=== PATIENT | male | born 1935 | race Caucasian/White ===

== ENCOUNTER 2017-06-09 08:41 | Outpatient (POV) | payer MEDICARE, SELFPAY | END 2017-06-09 09:29 | disposition home or self-care (01) | PROVIDERS: Visit Provider Podiatrist | DX: L84 Corns and callosities (principal); I83.93 Asymptomatic varicose veins of bilateral lower extremities; L60.2 Onychogryphosis; M25.572 Pain in left ankle and joints of left foot; M25.571 Pain in right ankle and joints of right foot | CPT/HCPCS: 99203; G0127 ==

== ENCOUNTER → 2018-03-29 10:23 | Outpatient (CLI) | payer MEDICARE, SELFPAY ==
[2018-03-29 11:47] LABS: Alanine Aminotransferase 28 U/L (12-78); Albumin Level 3.8 gm/dL (3.4-5.0); Albumin/Globulin Ratio 1.1 (1.1-1.8); Alkaline Phosphatase 91 U/L (46-116); Anion Gap 13.9 mEq/L (5-15); Aspartate Amino Transferase 21 U/L (15-37); Bilirubin,Total 0.6 mg/dL (0.2-1.0); Blood Urea Nitrogen 21 mg/dL (7-18); Calcium 8.9 mg/dL (8.5-10.1); Carbon Dioxide 26 mmol/L (21.0-32.0); Chloride 107 mmol/L (98-107); Chol/HDL Ratio 2.6 (1-3.5); Cholesterol 132 mg/dL (140-200); Creatinine,Serum 1.41 mg/dL (0.70-1.30); Estimated Glomerular Filt Rate 48 ml/min (>60); GFR (African American) 58 ML/MIN (>60); Globulin 3.4 gm/dl (1.3-3.2); Glucose 97 mg/dL (74-106); HDL Cholesterol 50 mg/dL (27-67); LDL Cholesterol 42 mg/dL (0-130); Potassium 4.9 mmoL/L (3.5-5.1); Sodium 142 mmol/L (136-145); Thyroid Stimulating Hormone 1.73 uIU/ml (0.358-3.740); Total Protein,Serum 7.2 gm/dL (6.4-8.2); Triglycerides 199 mg/dL (30-200); VLDL Cholesterol 40 mg/dL (0-40)
== END ==
PROVIDERS: PCP Family Medicine; Visit Provider Physician Assistant
DX: I25.10 Atherosclerotic heart disease of native coronary artery without angina pectoris (principal); I10 Essential (primary) hypertension; E78.5 Hyperlipidemia, unspecified
CPT/HCPCS: 36415; 80053; 80061; 84443

== ENCOUNTER → 2018-06-26 12:05 | Outpatient (CLI) | payer MEDICARE, SELFPAY ==
--- NOTE | 2018-06-26 12:26 | XR_ITS ---
XR chest 2V HISTORY: Bibasilar crackles. Posterior lungs. Short of breath. Nonsmoker. 4 vessel bypass 2000 ITS.REASON: Bibasilar crackles ORDERING PHYSICIAN: SVETA Stanton PATIENT AGE: 82 years Technique: PA and lateral CXR. COMPARISON: 2 view CXR 01/14/2017 & 01/04/2011. FINDINGS: Frontal chest appears stable chest slightly rotated the left median sternotomy, likely for CABG. Heart is normal size. The slightly ill-defined left heart margin is similar to previous studies. Reflect anterior fat pad. There is subtle increased density at the medial left base on today's study which was not seen in 2017. It could reflect a small hiatal hernia but this in conjunction with some subtle density at the lower lobe on the lateral view of his suspect for minimalLLL infiltrate at the medial left base.. This may partially obscure the posterior sulcus on left as well. Clinical correlation required. . Right lung appears stable clear unremarkable. The chest wall appears satisfactory.. Minor chronic changes both lung bases. T-spine mild degenerative changes again seen throughout intramarginal osteophytes. No compression fracture. No CHF. IMPRESSION Suggestion patchy infiltrate/airspace disease at the medial left lung base at posterior aspect LLL.. Otherwise lungs clear. Heart upper normal in size. Sternotomy..
== END ==
PROVIDERS: PCP Physician Assistant; Referring Provider Physician Assistant; Visit Provider Physician Assistant
DX: R09.89 Other specified symptoms and signs involving the circulatory and respiratory systems (principal)
CPT/HCPCS: 71046

== ENCOUNTER → 2018-07-06 10:51 | Outpatient (CLI) | payer MEDICARE, SELFPAY ==
[2018-07-06 13:54] LABS: Alanine Aminotransferase 25 U/L (12-78); Albumin Level 3.5 gm/dL (3.4-5.0); Albumin/Globulin Ratio 0.9 (1.1-1.8); Alkaline Phosphatase 82 U/L (46-116); Aspartate Amino Transferase 17 U/L (15-37); Bilirubin,Total 0.3 mg/dL (0.2-1.0); Blood Urea Nitrogen 36 mg/dL (7-18); Calcium 8.7 mg/dL (8.5-10.1); Carbon Dioxide 26 mmol/L (21.0-32.0); Chloride 104 mmol/L (98-107); Cholesterol 114 mg/dL (140-200); Creatinine,Serum 1.67 mg/dL (0.70-1.30); Estimated Glomerular Filt Rate 39 ml/min (>60); GFR (African American) 48 ML/MIN (>60); Globulin 3.7 gm/dl (1.3-3.2); Glucose 104 mg/dL (74-106); HDL Cholesterol 38 mg/dL (27-67); LDL Cholesterol 56 mg/dL (0-130); Sodium 139 mmol/L (136-145); Total Protein,Serum 7.2 gm/dL (6.4-8.2); Triglycerides 99 mg/dL (30-200); VLDL Cholesterol 20 mg/dL (0-40)
== END ==
PROVIDERS: Visit Provider Family Medicine
DX: I25.10 Atherosclerotic heart disease of native coronary artery without angina pectoris (principal); I10 Essential (primary) hypertension
CPT/HCPCS: 36415; 80053; 80061

== ENCOUNTER → 2018-08-17 06:48 | Outpatient (CLI) | payer MEDICARE, SELFPAY ==
--- NOTE | 2018-08-17 06:53 | CA_ITS ---
PROCEDURE: 2-D M-mode and color Doppler study INDICATIONS FOR THE TEST: Chest pain+ COPD+ Heart Murmur Tobacco Smoking Palpitations Fatigue+ Syncope Edema Hypertension+Diabetes Mellitus Rheumatic Fever SOB FISH+Obesity+Hyperlipidemia+ Family History HD Additional History CABG, ABN EKG PATIENT INFORMATION HEIGHT:69 WEIGHT:286 GENDER: Male B/P:142/64 2-D/M-MODE INTERPRETATION: 2-D MEASUREMENTS OBSERVED VALUES IN CMS Right Ventricular Dimension (RVDd) 3.1 Interventricular Septum (Thickness)(IVsd) 1.7 Left Ventricular Internal Dimensions(LVIDd) 4.2 Left Ventricular Posterior Wall (Thickness)(LVPWd) 1.6 Aortic Root 3.6 Aortic Cusp Separation 2.0 Left Atrial Dimensions (LAD) 4.3 2D 1. Left atrium is mildly enlarged, left ventricle is normal size, mild concentric left ventricular hypertrophy, visually estimated ejection fraction 50% with no regional wall motion abnormality, endocardial surfaces are poorly visualized. 2. The right atrium and ventricle are mildly enlarged with normal contractility. 3. The aortic valve is thickened and calcified leaflet continue to display mobility 4. The mitral and tricuspid valve leaflets are minimally thickened. 5. The pulmonic valve is poorly present. 6. No significant pericardial effusion noted. DOPPLER INTERROGATION: Doppler interrogation of the aortic, mitral and tricuspid valvular presence of mild mitral and tricuspid regurgitation, tricuspid regurgitation jet velocity is inadequate for calculation of the right ventricular systolic pressure, grade 1 diastolic dysfunction seen with tissue Doppler evidence of raised left atrial pressure. CONCLUSION: 1. Biatrial enlargement, normal left ventricular size, mild concentric left ventricular hypertrophy, visually estimated to postvoid with no regional wall motion abnormality, masses dysfunction seen with tissue Doppler evidence of raised left atrial pressure. 2. Mildly enlarged left ventricle with normal contractility. 3. Mild mitral and tricuspid regurgitation 4. No significant Pericardial effusion noted.
--- NOTE | 2018-08-17 06:54 | NM_ITS ---
CARDIOLITE SPECT MYOCARDIAL PERFUSION SCAN, REST AND STRESS: EXERCISE STRESS [facility] REVIEW QGS EF AND WALL MOTION EVALUATION: QPS - PERFUSION EVALUATION HISTORY: SOB, Abnormal EKG, CABG, HTN DOSE: 9.88 mCi technetium 99m mibi intravenously at rest followed by 32.2 mCi technetium 99m mibi following the intravenous ministration of 0.4 mg of Lexiscan. Resting blood pressure is 142/72. Stress blood pressure 117/64. FINDINGS: Ejection fraction is calculated to be 47%. Stress images reveal decreased activity in the septum and apex and a small area of the lateral wall. Rest images reveal improved activity in the apex lateral wall and septum. Gated images calculated ejection fraction of 47% with apical hypokinesis IMPRESSION: Apical septal and lateral wall ischemia. Reduced ejection fraction with apical hypokinesis. High risk abnormal stress test
--- NOTE | 2018-08-17 07:19 | HMH.ITSHM ---
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 []METOPROLOL VITAMIN B ROSUASTATIN RAMIPRIL ASA MULTIVITAMIN GLUCOSAMINE COENZYME
== END ==
PROVIDERS: PCP Family Medicine; Visit Provider Internal Medicine
DX: R06.09 Other forms of dyspnea; I20.9 Angina pectoris, unspecified; E78.5 Hyperlipidemia, unspecified; I10 Essential (primary) hypertension; R26.89 Other abnormalities of gait and mobility; Z95.1 Presence of aortocoronary bypass graft
CPT/HCPCS: 78452; 93017; 93306; A9502; J2785

== ENCOUNTER → 2018-09-06 13:42 | Outpatient (CLI) | payer MEDICARE, SELFPAY ==
--- NOTE | 2018-09-06 13:42 | US_ITS ---
US kidney retroperitoneal comp Ordering Physician: Tristan James MD Patient Age: 82 years: Male HISTORY: ITS.REASON: eval for hydronephrosis. TECHNIQUE: Ultrasound both kidneys MW COMPARISON : None FINDINGS The kidneys appear normal in size, but with suggestion minimal cortical thinning particularly towards the superior pole of Right kidney. RIGHT KIDNEY: Measures 10.2 cm x 4.4 cm x 4.7 cm . The moderate roughly 3 cm fluid filled structure along the medial, inferior aspect of the right kidney reflecting either dilated renal pelvis vs a parapelvic cyst. Added to further reviewed the images and discussion with technologist there was question regarding possible mild hydronephrosis involving the lower pole moiety of the duplicated collecting system. Only subtle fullness of the pelvicalyceal system question. With this suggests either an IVP follow-up; or CT with contrast. protocol including 10 minute delayed images. LEFT KIDNEY 11 cm x 5.2 cm x 7.2 cm. Small benign-appearing renal cyst off the superior left kidney measures up to 1.1 cm. The limited images of spleen unremarkable.. Gallstones incidentally noted. IMPRESSION: 1.. Kidneys appear normal in size bilaterally but with suggestion of mild cortical thinning particularly at the upper pole right kidney 2. Right kidney. Prominent dilated renal pelvis vs roughly 3 cm parapelvic cyst. On further review & discussion with ultrasd tech, would question that there could be mild hydronephrosis involving lower pole moiety of a duplicated collecting system. Suggest IVP follow-up,. ( Actually IVP actually preferred in this case) ...; or CT abdomen pelvis protocol (with at least 10 minute delayed images) further evaluate 3. Multiple shadowing Gallstones incidentally noted
== END ==
PROVIDERS: PCP Family Medicine; Visit Provider Internal Medicine
DX: R94.30 Abnormal result of cardiovascular function study, unspecified; N18.9 Chronic kidney disease, unspecified; E78.2 Mixed hyperlipidemia; I25.118 Atherosclerotic heart disease of native coronary artery with other forms of angina pectoris; R06.09 Other forms of dyspnea; R26.89 Other abnormalities of gait and mobility; Z95.1 Presence of aortocoronary bypass graft
CPT/HCPCS: 76770

== ENCOUNTER → 2018-09-22 11:41 | Outpatient (CLI) | payer MEDICARE, SELFPAY ==
[2018-09-22 13:55] LABS: Blood Urea Nitrogen 30 mg/dL (7-18); Creatinine,Serum 1.47 mg/dL (0.70-1.30); Estimated Glomerular Filt Rate 46 ml/min (>60); GFR (African American) 55 ML/MIN (>60)
== END ==
PROVIDERS: Visit Provider Family Medicine
DX: N13.9 Obstructive and reflux uropathy, unspecified (principal)
CPT/HCPCS: 36415; 82565; 84520

== ENCOUNTER → 2018-09-23 09:11 | Outpatient (CLI) | payer MEDICARE, SELFPAY ==
--- NOTE | 2018-09-23 09:11 | XR_ITS ---
XR IVP w KUB Ordering Physician: Yuly Burciaga MD Patient Age: 82 years: Male HISTORY: ITS.REASON: x TECHNIQUE: Seems to be normal caliber COMPARISON : Ultrasound of kidneys 09/06/[address] nor plain films of abdomen FINDINGS CANDY POLISHER FILM.-- There is a vague large perfectly round density measuring up to 5.7 cm diameter was projected over the right upper quadrant, with denser focal central calcification. This could reflects extrinsic artifact or conceivably could reflect a large gallstone conceivably. Gallstones were noted fillinggallbladder on recent ultrasound. . On the chief cruiser film was projected right kidney but on oblique views it is clearly not related to the kidney . Question some faint calcifications possibly at the left kidney on the chief cruiser view. Possible small calculi cannot be excluded at left kidney. Numerous dense phleboliths pelvic basin. Postsurgical changes right abdomen. IVP------ Following 75 cc Optiray 350 there is a prominent faint bilateral nephrogram. Left kidney and collecting system with satisfactory appearance.. Normal pelvicalyceal system on early images & Left ureter can be followed to the urinary bladder. Left kidney measures up to 12 cm length.. Question possible small calyceal diverticulum mid left kidney on later images of left kidney.. Equivocal Right kidney. Similar size. However we only see contrast filling the calyces with lack of contrast in the region of the renal pelvis. The renal pelvis axial comparison be somewhat compressed it is only faintly seen in question early evident. However there is no dilatation of the calyces in the right ureter..no obstruction. Both ureters drain appropriately on upright post void.. Urinary bladder demonstrates prominent inferior indentation from likely enlarged prostate IMPRESSION: 1. Recent ultrasound demonstrated a generous cystic area at the medial aspect left kidney. Most likely this is a parapelvic cyst which compresses and obscures the right renal pelvis on today's IVP study. . 2. No obstructive uropathy. No duplication of collecting system 3. Suspect large prostate indents the base the bladder. 4. Large over 5 cm round vague density at the right upper quadrant likely very large gallstone filling the gallbladder as suggested on recent ultrasound
== END ==
PROVIDERS: PCP Family Medicine; Visit Provider Family Medicine
DX: N13.1 Hydronephrosis with ureteral stricture, not elsewhere classified (principal)
CPT/HCPCS: 74400; Q9967

== ENCOUNTER → 2018-10-18 10:10 | Outpatient (CLI) | payer MEDICARE, SELFPAY ==
--- NOTE | 2018-10-18 10:16 | NVE_ITS ---
Venous Exam Indications: 729.81 Swelling of limb. 729.5 Pain in limb. IMPRESSIONS 1. There is no evidence of significant Reflux. 2. No evidence of deep or superficial vein thrombosis involving the right lower extremity History: Risk factors: Obese. Cellulitis. Right lower extremity venous duplex evaluation. Doppler flow study including spectral analysis, color and liang scale imaging. Location: Vascular laboratory. Patient status: Outpatient. CRITICAL FINDINGS - Reported to: Jaki Dockery's office - 10/18/2018 - 10:35 am - Neg. for DVT Tables: Venous flow and imaging: + +-------+ + Location Overall Flow properties + +-------+ + Right common femoral Patent Normal phasicity; spontaneous; normal augmentation; compressible + +-------+ + Right saphenofemoral junction Patent Compressible + +-------+ + Right profunda femoral Patent Compressible + +-------+ + Right femoral Patent Normal phasicity; spontaneous; normal augmentation; compressible + +-------+ + Right greater saphenous Absent + +-------+ + Right popliteal Patent Normal phasicity; spontaneous; normal augmentation; compressible + +-------+ + Right posterior tibial Patent Compressible + +-------+ + Right peroneal Patent Compressible + +-------+ + Right gastrocnemius Patent Compressible + +-------+ + Right soleal Patent Compressible + +-------+ + (Report amended ) Electronically signed by: Ken Matos [id number]
== END ==
PROVIDERS: PCP Family Medicine; Visit Provider Nurse Practitioner Family
DX: M79.604 Pain in right leg (principal)
CPT/HCPCS: 93971

== ENCOUNTER 2018-10-20 14:04 | Inpatient (IN) ==
--- NOTE | 2018-10-20 15:17 | Pharmacy Consult Notes ---
[facility] Pharmacy VTE Monitoring - Patient Demographics Admission date: 10/20/18 Report Date: 10/20/18 Time: 15:17 Allergies/Adverse Reactions: Patient Allergies No Known Allergies Allergy (Verified 09/02/18 15:48) Height: 1.75 m Weight: 96.644 kg - VTE Risk VTE Score: 3 VTE Risk Level: Low Risk - Prophylaxis Types of VTE Prophylaxis: TEDS Knee High (JUSTINE HOSE ORDER PLACED)
--- NOTE | 2018-10-20 16:14 | Pharmacy Consult Notes ---
- Pharmacy Consult Date: 10/20/18 Time: 16:13 Referring provider: DR. WALKER Reason for Consult:: VANCOMYCIN DOSING Allergies and ADEs:: Allergies Allergy/AdvReac Type Severity Reaction Status Date / Time No Known Allergies Allergy Verified 09/02/18 15:48 Home Medications:: Home Medications Medication Instructions Recorded Confirmed Type coenzyme Q10 100 mg capsule 100 mg PO DAILY 08/10/18 10/20/18 History glucosamine-chondroitin 250 mg-200 2 tab PO QPC 08/10/18 10/20/18 History mg tablet vitamin B complex tablet 1 tab PO DAILY 08/10/18 10/20/18 History metoprolol tartrate 50 mg tablet 25 mg PO BID 90 Days #90 tab 08/24/18 10/20/18 History Aspirin [Aspirin 81mg chewable 81 mg PO DAILY 10/20/18 10/20/18 History tab] Multivitamin [Daily Multiple 1 each PO DAILY 10/20/18 10/20/18 History Vitamin] Nitroglycerin [Nitrostat 0.4mg SL 0.4 mg SL Q5MINP PRN 10/20/18 10/20/18 History Tablet] Ramipril 5 mg PO DAILY 10/20/18 10/20/18 History Rosuvastatin Calcium 10 mg PO HS 10/20/18 10/20/18 History Height: 1.75 m Weight: 96.644 kg Medical History: Reports:: Chronic Obstructive Pulmonary Disease (COPD), Coronary Artery Disease, Hyperlipidemia, Hypertension, Myocardial Infarction Denies:: Asthma, Diabetes Mellitus Type 1, Diabetes Mellitus Type 2 Assessment and Plan - Assessment and plan all Dx Assessment and Plan for all problems:: BASED ON PATIENT'S FACTORS, RECOMMEND STARTING WITH VANCOMYCIN 1500 MG Q24H AT THIS TIME. PHARMACY WILL FOLLOW DAILY AND ADJUST APPROPRIATE. ESTUARDO LOU,PHARMD
[2018-10-20 16:21] LABS: Albumin Level 3.4 gm/dL (3.4-5.0); Albumin/Globulin Ratio 0.6 (1.1-1.8); Anion Gap 14.2 mEq/L (5-15); Bilirubin,Total 0.5 mg/dL (0.2-1.0); Calcium 9.3 mg/dL (8.5-10.1); Globulin 5.4 gm/dl (1.3-3.2); Potassium 5.2 mmoL/L (3.5-5.1); Total Protein,Serum 8.8 gm/dL (6.4-8.2)
--- NOTE | 2018-10-20 16:32 | Progress Note ---
Internal Medicine - PN: Subj *Date: 10/20/18 *Time: 16:29 Interval history: Patient was seen in the office of [facility] today for follow-up on cellulitis of his right lower leg. He has been seen daily since 10/18 2018 and been on Keflex and Bactrim. He has been doing warm soaks as well. 10/19/2018 he had drainage of the wound in the back of the right lower extremity and culture was obtained. These results are pending. Today in the office the wound is open with some drainage. He had an increase in erythema anteriorly going up almost to the knee and posteriorly on the back of the calf and down to the dorsal aspect of the foot. The area was a bright red and very tender to palpation. The edema around the ankle had increased since the previous day. Dr. Burciaga did see the patient. He was then admitted to acute care for wound care with CIRILO boot and IV vancomycin along with IV fluids. To note patient has not been eating and drinking well for the last few days. Patient did have a venous Doppler study on 10/18/2018 which was negative for DVT. see H&P from EMR at [facility] sent over with pt Exam Vital signs and Labs for Last 24 Hours: Temp Pulse Resp BP Pulse Ox 98.0 F 69 20 128/63 96 10/20/18 14:30 10/20/18 14:30 10/20/18 14:30 10/20/18 14:30 10/20/18 14:30 Laboratory Results - last 24 hr 10/20/18 15:54: Sodium 135 L, Potassium 5.2 H, Chloride 98, Carbon Dioxide 28, Anion Gap 14.2, BUN 23 H, Creatinine 1.94 H, Estimated Creat Clear 39, Estimated GFR 33 L, Est GFR ( Amer) 40 L, Glucose 107 H, Calcium 9.3, Total Bilirubin 0.5, AST 12 L, ALT 17, Alkaline Phosphatase 72, Total Protein 8.8 H, Albumin 3.4, Globulin 5.4 H, Albumin/Globulin Ratio 0.6 L I & O for Last 24 hours: Intake & Output 10/18/18 10/19/18 10/20/18 10/21/18 11:59 11:59 11:59 11:59 Weight 213 lb 1 oz Assessment and Plan (1) Cellulitis and abscess of right lower extremity Current visit: Yes Status: Acute Category: Medical Code(s): L03.115 - Cellulitis of right lower limb; L02.415 - Cutaneous abscess of right lower limb (2) Hypertension Current visit: Yes Status: Chronic Category: Medical Code(s): I10 - Essential (primary) hypertension (3) CAD (coronary artery disease) Current visit: No Status: Chronic Qualifiers: Coronary Disease-Associated Artery/Lesion type: [place] artery [place] vs. transplanted heart: [place] heart Associated angina: with other forms of angina Qualified Code(s): I25.118 - Atherosclerotic heart disease of [place] coronary artery with other forms of angina pectoris Category: Medical Code(s): I25.10 - Atherosclerotic heart disease of [place] coronary artery without angina pectoris (4) CKD (chronic kidney disease) Current visit: No Status: Chronic Qualifiers: Chronic kidney disease stage: unspecified stage Qualified Code(s): N18.9 - Chronic kidney disease, unspecified Category: Medical Code(s): N18.9 - Chronic kidney disease, unspecified (5) History of coronary artery bypass graft Current visit: No Status: Chronic Category: Surgical Code(s): Z95.1 - Presence of aortocoronary bypass graft - Assessment and plan all Dx Assessment and Plan for all problems:: Patient is been unable to acute care with IV fluids, IV vancomycin as per pharmacy calculation, and wound care. Physical therapy has seen the patient and applied an Unna boot. Labs are pending. Area has been recultured. will start daily Lovenox for DVT prophylaxis
[2018-10-20 16:51] LABS: Basophils % 0.4 % (0.1-2.0); Eosinophils # 0.1 K/mm3 (0.0-0.4); Eosinophils % 1.4 % (0.1-12.0); Hematocrit 42.9 % (42.0-52.0); Hemoglobin 14.3 g/dL (14.1-18.0); Lymphocytes # 0.9 K/mm3 (0.7-4.5); Lymphocytes % 9.2 % (10-50); Mean Corpuscular HGB Conc 33.4 g/dL (31.8-35.4); Mean Corpuscular Hemoglobin 31.6 pg (27.0-31.2); Mean Corpuscular Volume 94.7 fl (80-94); Mean Platelet Volume 7.2 fl (7.4-10.4); Monocytes # 0.5 K/mm3 (0.1-1.0); Monocytes % 4.9 % (1.7-9.3); Neutrophils # 8.4 K/mm3 (1.8-7.8); Neutrophils % 84.1 % (37.0-80.0); Platelet Count 297 K/mm3 (142-424); Red Blood Count 4.53 M/mm3 (4.60-6.20); Red Cell Distribution Width 13.1 % (11.5-17.5)
--- NOTE | 2018-10-21 08:43 | Progress Note ---
Internal Medicine - PN: Subj *Date: 10/21/18 *Time: 08:41 Interval history: Patient denies any pain today. He did have an Unna boot placed by physical therapy yesterday. He does have some wheezing this morning. He ate most of his breakfast and slept well last night. Exam Vital signs and Labs for Last 24 Hours: Temp Pulse Resp BP Pulse Ox 98.2 F 78 18 123/53 L 95 10/21/18 04:00 10/21/18 04:00 10/21/18 04:00 10/21/18 04:00 10/21/18 04:00 Laboratory Results - last 24 hr 10/20/18 15:54: WBC 10.0, RBC 4.53 L, Hgb 14.3, Hct 42.9, MCV 94.7 H, MCH 31.6 H , MCHC 33.4, RDW 13.1, Plt Count 297, MPV 7.2 L, Neut % (Auto) 84.1 H, Lymph % (Auto) 9.2 L, [place] % (Auto) 4.9, Eos % (Auto) 1.4, Baso % (Auto) 0.4, Neut # (Auto) 8.4 H, Lymph # (Auto) 0.9, [place] # (Auto) 0.5, Eos # (Auto) 0.1, Baso # (Auto) 0.0 10/20/18 15:54: Sodium 135 L, Potassium 5.2 H, Chloride 98, Carbon Dioxide 28, Anion Gap 14.2, BUN 23 H, Creatinine 1.94 H, Estimated Creat Clear 39, Estimated GFR 33 L, Est GFR ( Amer) 40 L, Glucose 107 H, Calcium 9.3, Total Bilirubin 0.5, AST 12 L, ALT 17, Alkaline Phosphatase 72, Total Protein 8.8 H, Albumin 3.4, Globulin 5.4 H, Albumin/Globulin Ratio 0.6 L I & O for Last 24 hours: Intake & Output 10/18/18 10/19/18 10/20/18 10/21/18 11:59 11:59 11:59 11:59 Intake Total 1547 / 1547 Output Total 500 / 500 Balance 1047 / 1047 Weight 213 lb 1 oz Microbiology Reports for the Last 24 Hours: Microbiology 10/20/18 14:57 Leg,Right Gram Stain - Final 10/20/18 14:57 Leg,Right Wound Culture - Preliminary - Constitutional no acute distress - *Routine Respiratory Exam Present: wheezes (expiratory throughout). Absent: rales - *Routine Cardiovascular Exam Present: RRR - *Routine Abdominal Exam Present: soft, normoactive bowel sounds. Absent: tenderness - *Routine Extremities Exam Present: edema (bilateral LE, Unna boot on right lower leg) - *Routine Neurological Exam Present: alert, oriented X3 Assessment and Plan (1) Cellulitis and abscess of right lower extremity Current visit: Yes Status: Acute Category: Medical Code(s): L03.115 - Cellulitis of right lower limb; L02.415 - Cutaneous abscess of right lower limb (2) Hypertension Current visit: Yes Status: Chronic Category: Medical Code(s): I10 - Essential (primary) hypertension (3) CAD (coronary artery disease) Current visit: No Status: Chronic Qualifiers: Coronary Disease-Associated Artery/Lesion type: [place] artery [place] vs. transplanted heart: [place] heart Associated angina: with other forms of angina Qualified Code(s): I25.118 - Atherosclerotic heart disease of [place] coronary artery with other forms of angina pectoris Category: Medical Code(s): I25.10 - Atherosclerotic heart disease of [place] coronary artery without angina pectoris (4) CKD (chronic kidney disease) Current visit: No Status: Chronic Qualifiers: Chronic kidney disease stage: unspecified stage Qualified Code(s): N18.9 - Chronic kidney disease, unspecified Category: Medical Code(s): N18.9 - Chronic kidney disease, unspecified (5) History of coronary artery bypass graft Current visit: No Status: Chronic Category: Surgical Code(s): Z95.1 - Presence of aortocoronary bypass graft - Assessment and plan all Dx Assessment and Plan for all problems:: We will continue IV antibiotics and wound care. Awaiting wound culture.
[2018-10-21 09:48] LABS: Basophils % 0.3 % (0.1-2.0); Eosinophils # 0.4 K/mm3 (0.0-0.4); Eosinophils % 4.9 % (0.1-12.0); Hematocrit 38.3 % (42.0-52.0); Lymphocytes # 0.8 K/mm3 (0.7-4.5); Lymphocytes % 10.4 % (10-50); Mean Corpuscular HGB Conc 32.7 g/dL (31.8-35.4); Mean Corpuscular Hemoglobin 31.3 pg (27.0-31.2); Mean Corpuscular Volume 95.9 fl (80-94); Monocytes # 0.6 K/mm3 (0.1-1.0); Neutrophils # 6.1 K/mm3 (1.8-7.8); Neutrophils % 77.4 % (37.0-80.0); Platelet Count 243 K/mm3 (142-424); Red Cell Distribution Width 13.2 % (11.5-17.5); White Blood Count 7.9 K/mm3 (4.8-10.8)
[2018-10-21 09:50] LABS: Albumin Level 2.7 gm/dL (3.4-5.0); Albumin/Globulin Ratio 0.6 (1.1-1.8); Anion Gap 12.7 mEq/L (5-15); Bilirubin,Total 0.5 mg/dL (0.2-1.0); Globulin 4.6 gm/dl (1.3-3.2); Potassium 4.7 mmoL/L (3.5-5.1); Total Protein,Serum 7.3 gm/dL (6.4-8.2)
[2018-10-21 09:57] LABS: Hemoglobin 12.6 g/dL (14.1-18.0)
[2018-10-21 12:58] LABS: Calcium 8.5 mg/dL (8.5-10.1)
[2018-10-21 23:12] LABS: Microscopic, Urine URINE MICROSCOPIC (MICROSCOPIC)
[2018-10-21 23:19] LABS: Appearance,Urine CLEAR (Clear); Bilirubin,Urine Negative (Negative); Blood, Urine 3+ (Negative); Color,Urine ORANGE (Yellow); Glucose,Urine (UA) Negative (Negative); Ketones,Urine Negative (Negative); Leukocyte Esterase,Urine Negative (Negative); Protein,Urine TRACE (Negative); Urobilinogen,Urine 0.2 EU/dl (0.2)
[2018-10-21 23:25] LABS: Bacteria,Urine Trace /lpf; RBC,Urine 50-100 #/hpf (0-3); Squamous Epithelial Cell,Urine Occasional #/hpf (0-5); WBC,Urine Occasional #/hpf (0-3)
--- NOTE | 2018-10-22 08:46 | Progress Note ---
Internal Medicine - PN: Subj *Date: 10/22/18 *Time: 08:43 Interval history: Patient states he is feeling better this morning. He did have some blood in his urine last night. We will culture this today. His wheezing remains however his chest x-ray showed nothing acute. He still has his Unna boot in place. He rested well and ate a good breakfast. Exam Vital signs and Labs for Last 24 Hours: Temp Pulse Resp BP Pulse Ox 97.9 F 72 16 124/54 L 98 10/22/18 04:00 10/22/18 04:00 10/22/18 04:00 10/22/18 04:00 10/22/18 04:00 Laboratory Results - last 24 hr 10/21/18 09:14: WBC 7.9, RBC 4.00 L, Hgb 12.6 L D, Hct 38.3 L, MCV 95.9 H, MCH 31.3 H, MCHC 32.7, RDW 13.2, Plt Count 243, MPV 7.0 L, Neut % (Auto) 77.4, Lymph % (Auto) 10.4, [place] % (Auto) 7.0, Eos % (Auto) 4.9, Baso % (Auto) 0.3, Neut # (Auto) 6.1, Lymph # (Auto) 0.8, [place] # (Auto) 0.6, Eos # (Auto) 0.4, Baso # (Auto) 0.0 10/21/18 09:14: Sodium 134 L, Potassium 4.7, Chloride 101, Carbon Dioxide 25, Anion Gap 12.7, BUN 19 H, Creatinine 1.78 H, Estimated Creat Clear 42, Estimated GFR 37 L, Est GFR ( Amer) 44 L, Glucose 102, Calcium 8.5, Total Bilirubin 0.5, AST 10 L, ALT 17, Alkaline Phosphatase 63, Total Protein 7.3, Albumin 2.7 L D, Globulin 4.6 H, Albumin/Globulin Ratio 0.6 L 10/21/18 23:02: Urine Color [place], Urine Appearance Clear, Urine pH 6.0, Ur Specific [place] 1.020, Urine Protein Trace, Urine Glucose (UA) Negative, Urine Ketones Negative, Urine Blood 3+, Urine Nitrate Negative, Urine Bilirubin Negative, Urine Urobilinogen 0.2, Ur Leukocyte Esterase Negative, Urine RBC 50- 100, Urine WBC Occasional, Ur Squamous Epith Cells Occasional, Urine Bacteria Trace I & O for Last 24 hours: Intake & Output 10/19/18 10/20/18 10/21/18 10/22/18 11:59 11:59 11:59 11:59 Intake Total 1547 / 1547 620 / 620 Output Total 500 / 500 150 / 150 Balance 1047 / 1047 470 / 470 Weight 213 lb 1 oz 276 lb 9 oz Microbiology Reports for the Last 24 Hours: Microbiology 10/20/18 14:57 Leg,Right Gram Stain - Final 10/20/18 14:57 Leg,Right Wound Culture - Preliminary Gram Positive Cocci - Constitutional no acute distress - *Routine Respiratory Exam Present: wheezes (expiratory) - *Routine Cardiovascular Exam Present: RRR - *Routine Abdominal Exam Present: soft, normoactive bowel sounds. Absent: tenderness - *Routine Extremities Exam Present: edema (bilateral LE, Unna boot in place) Assessment and Plan (1) Cellulitis and abscess of right lower extremity Current visit: Yes Status: Acute Category: Medical Code(s): L03.115 - Cellulitis of right lower limb; L02.415 - Cutaneous abscess of right lower limb (2) Hypertension Current visit: Yes Status: Chronic Category: Medical Code(s): I10 - Essential (primary) hypertension (3) CAD (coronary artery disease) Current visit: No Status: Chronic Qualifiers: Coronary Disease-Associated Artery/Lesion type: [place] artery [place] vs. transplanted heart: [place] heart Associated angina: with other forms of angina Qualified Code(s): I25.118 - Atherosclerotic heart disease of [place] coronary artery with other forms of angina pectoris Category: Medical Code(s): I25.10 - Atherosclerotic heart disease of [place] coronary artery without angina pectoris (4) CKD (chronic kidney disease) Current visit: No Status: Chronic Qualifiers: Chronic kidney disease stage: unspecified stage Qualified Code(s): N18.9 - Chronic kidney disease, unspecified Category: Medical Code(s): N18.9 - Chronic kidney disease, unspecified (5) History of coronary artery bypass graft Current visit: No Status: Chronic Category: Surgical Code(s): Z95.1 - Presence of aortocoronary bypass graft - Assessment and plan all Dx Assessment and Plan for all problems:: We will continue antibiotics and wound care. Will culture urine.
--- NOTE | 2018-10-22 16:03 | Pharmacy Consult Notes ---
- Pharmacy Consult Date: 10/22/18 Time: 16:01 Referring provider: Brian WALKER Reason for Consult:: CONTINUING VANCOMYCIN THERAPY Allergies and ADEs:: Allergies Allergy/AdvReac Type Severity Reaction Status Date / Time No Known Allergies Allergy Verified 09/02/18 15:48 Home Medications:: Home Medications Medication Instructions Recorded Confirmed Type coenzyme Q10 100 mg capsule 100 mg PO DAILY 08/10/18 10/20/18 History glucosamine-chondroitin 250 mg-200 2 tab PO QPC 08/10/18 10/20/18 History mg tablet vitamin B complex tablet 1 tab PO DAILY 08/10/18 10/20/18 History metoprolol tartrate 50 mg tablet 25 mg PO BID 90 Days #90 tab 08/24/18 10/20/18 History Aspirin [Aspirin 81mg chewable 81 mg PO DAILY 10/20/18 10/20/18 History tab] Multivitamin [Daily Multiple 1 each PO DAILY 10/20/18 10/20/18 History Vitamin] Nitroglycerin [Nitrostat 0.4mg SL 0.4 mg SL Q5MINP PRN 10/20/18 10/20/18 History Tablet] Ramipril 5 mg PO DAILY 10/20/18 10/20/18 History Rosuvastatin Calcium 10 mg PO HS 10/20/18 10/20/18 History Height: 1.75 m Weight: 125.447 kg Laboratory Results:: Laboratory Results - last 24 hr 10/21/18 23:02: Urine Color [place], Urine Appearance Clear, Urine pH 6.0, Ur Specific [place] 1.020, Urine Protein Trace, Urine Glucose (UA) Negative, Urine Ketones Negative, Urine Blood 3+, Urine Nitrate Negative, Urine Bilirubin Negative, Urine Urobilinogen 0.2, Ur Leukocyte Esterase Negative, Urine RBC 50- 100, Urine WBC Occasional, Ur Squamous Epith Cells Occasional, Urine Bacteria Trace 10/22/18 14:55: Random Vancomycin 9.3 Medical History: Reports:: Chronic Obstructive Pulmonary Disease (COPD), Coronary Artery Disease, Hyperlipidemia, Hypertension, Myocardial Infarction Denies:: Asthma, Diabetes Mellitus Type 1, Diabetes Mellitus Type 2 Assessment and Plan (1) Cellulitis and abscess of right lower extremity Current visit: Yes Status: Acute Category: Medical Code(s): L03.115 - Cellulitis of right lower limb; L02.415 - Cutaneous abscess of right lower limb (2) Hypertension Current visit: Yes Status: Chronic Category: Medical Code(s): I10 - Essential (primary) hypertension (3) CAD (coronary artery disease) Current visit: No Status: Chronic Qualifiers: Coronary Disease-Associated Artery/Lesion type: [place] artery [place] vs. transplanted heart: [place] heart Associated angina: with other forms of angina Qualified Code(s): I25.118 - Atherosclerotic heart disease of [place] coronary artery with other forms of angina pectoris Category: Medical Code(s): I25.10 - Atherosclerotic heart disease of [place] coronary artery without angina pectoris (4) CKD (chronic kidney disease) Current visit: No Status: Chronic Qualifiers: Chronic kidney disease stage: unspecified stage Qualified Code(s): N18.9 - Chronic kidney disease, unspecified Category: Medical Code(s): N18.9 - Chronic kidney disease, unspecified (5) History of coronary artery bypass graft Current visit: No Status: Chronic Category: Surgical Code(s): Z95.1 - Presence of aortocoronary bypass graft - Assessment and plan all Dx Assessment and Plan for all problems:: VANCOMYCIN TROUGH TODAY BEFORE 3RD DOSE = 9.3 WILL CHANGE DOSING INTERVAL TO EVERY 12 HOURS TO INCREASE TROUGH LEVEL, BUT DECREASE DOSE FROM 1500MG TO 1000MG TO AVOID ACCUMULATION OF DRUG. WILL FOLLOW DAILY AND ADJUST NECESSARY. THANK YOU.
--- NOTE | 2018-10-23 08:33 | Progress Note ---
Internal Medicine - PN: Subj *Date: 10/23/18 *Time: 08:31 Interval history: Patient is feeling well this morning. He denies any pain but does complain of some burning with urination. He had his Unna boot replaced yesterday. Wound culture from the office and hospital have returned positive for MRSA that is sensitive to vancomycin. Patient's only complaint this morning is constipation. Exam Vital signs and Labs for Last 24 Hours: Temp Pulse Resp BP Pulse Ox 98.1 F 94 H 18 176/111 H 94 L 10/23/18 08:00 10/23/18 08:00 10/23/18 08:00 10/23/18 08:00 10/23/18 08:00 Laboratory Results - last 24 hr 10/22/18 14:55: Random Vancomycin 9.3 I & O for Last 24 hours: Intake & Output 10/20/18 10/21/18 10/22/18 10/23/18 11:59 11:59 11:59 11:59 Intake Total 1547 / 1547 1945 / 1945 840 / 840 Output Total 500 / 500 450 / 450 800 / 800 Balance 1047 / 1047 1495 / 1495 40 / 40 Weight 213 lb 1 oz 276 lb 9 oz 277 lb 9 oz Microbiology Reports for the Last 24 Hours: Microbiology 10/20/18 14:57 Leg,Right Gram Stain - Final 10/20/18 14:57 Leg,Right Wound Culture - Final Staphylococcus aureus - Constitutional no acute distress - *Routine Respiratory Exam Present: CTA bilaterally - *Routine Cardiovascular Exam Present: RRR - *Routine Abdominal Exam Present: soft, normoactive bowel sounds. Absent: tenderness - *Routine Extremities Exam Present: edema (bilateral LE, unna boot in place) Assessment and Plan (1) Cellulitis and abscess of right lower extremity Current visit: Yes Status: Acute Category: Medical Code(s): L03.115 - Cellulitis of right lower limb; L02.415 - Cutaneous abscess of right lower limb (2) Hypertension Current visit: Yes Status: Chronic Category: Medical Code(s): I10 - Essential (primary) hypertension (3) CAD (coronary artery disease) Current visit: No Status: Chronic Qualifiers: Coronary Disease-Associated Artery/Lesion type: [place] artery [place] vs. transplanted heart: [place] heart Associated angina: with other forms of angina Qualified Code(s): I25.118 - Atherosclerotic heart disease of [place] coronary artery with other forms of angina pectoris Category: Medical Code(s): I25.10 - Atherosclerotic heart disease of [place] coronary artery without angina pectoris (4) CKD (chronic kidney disease) Current visit: No Status: Chronic Qualifiers: Chronic kidney disease stage: unspecified stage Qualified Code(s): N18.9 - Chronic kidney disease, unspecified Category: Medical Code(s): N18.9 - Chronic kidney disease, unspecified (5) History of coronary artery bypass graft Current visit: No Status: Chronic Category: Surgical Code(s): Z95.1 - Presence of aortocoronary bypass graft (6) MRSA infection Current visit: Yes Status: Acute Category: Medical Code(s): A49.02 - Methicillin resistant Staphylococcus aureus infection, unspecified site (7) Constipation Current visit: Yes Status: Acute Category: Medical Code(s): K59.00 - Constipation, unspecified - Assessment and plan all Dx Assessment and Plan for all problems:: Still awaiting urine culture results. We will continue IV vancomycin for MRSA infection. Will start on MiraLAX for constipation.
--- NOTE | 2018-10-24 14:49 | Progress Note ---
Internal Medicine - PN: Subj *Date: 10/24/18 *Time: 14:46 Interval history: He feels somewhat better. He is comfortable. We discussed the concept of diuresis and fluid balance and leg edema. He has less leg edema today and his weight is down a bit (1.5 pounds ). He needs labs today. Exam Vital signs and Labs for Last 24 Hours: Temp Pulse Resp BP Pulse Ox 98.1 F 90 20 129/62 95 10/24/18 07:41 10/24/18 07:41 10/24/18 08:00 10/24/18 07:41 10/24/18 08:00 I & O for Last 24 hours: Intake & Output 10/22/18 10/23/18 10/24/18 10/25/18 11:59 11:59 11:59 11:59 Intake Total 1945 / 1945 840 / 840 1330 / 1330 240 / 240 Output Total 450 / 450 800 / 800 850 / 850 Balance 1495 / 1495 40 / 40 480 / 480 240 / 240 Weight 276 lb 9 oz 277 lb 9 oz 276 lb 4 oz Microbiology Reports for the Last 24 Hours: Microbiology 10/23/18 02:00 Urine,Clean Catch Urine Culture - Preliminary NO GROWTH AFTER 24 HOURS - Constitutional no acute distress - *Routine Respiratory Exam Present: CTA bilaterally - *Routine Cardiovascular Exam Present: RRR - *Routine Abdominal Exam Comments: Obese, soft, nontender. - *Routine Extremities Exam Comments: He still has 3-4+ leg edema but it is less than yesterday. I rewrapped his left leg. We need to look at his wound tomorrow. The Unna boot is still in place. Assessment and Plan (1) Cellulitis and abscess of right lower extremity Current visit: Yes Status: Acute Category: Medical Code(s): L03.115 - Cellulitis of right lower limb; L02.415 - Cutaneous abscess of right lower limb (2) Hypertension Current visit: Yes Status: Chronic Category: Medical Code(s): I10 - Essential (primary) hypertension (3) CAD (coronary artery disease) Current visit: No Status: Chronic Qualifiers: Coronary Disease-Associated Artery/Lesion type: [place] artery [place] vs. transplanted heart: [place] heart Associated angina: with other forms of angina Qualified Code(s): I25.118 - Atherosclerotic heart disease of [place] coronary artery with other forms of angina pectoris Category: Medical Code(s): I25.10 - Atherosclerotic heart disease of [place] coronary artery without angina pectoris (4) CKD (chronic kidney disease) Current visit: No Status: Chronic Qualifiers: Chronic kidney disease stage: unspecified stage Qualified Code(s): N18.9 - Chronic kidney disease, unspecified Category: Medical Code(s): N18.9 - Chronic kidney disease, unspecified (5) History of coronary artery bypass graft Current visit: No Status: Chronic Category: Surgical Code(s): Z95.1 - Presence of aortocoronary bypass graft (6) MRSA infection Current visit: Yes Status: Acute Category: Medical Code(s): A49.02 - Methicillin resistant Staphylococcus aureus infection, unspecified site (7) Constipation Current visit: Yes Status: Acute Category: Medical Code(s): K59.00 - Constipation, unspecified - Assessment and plan all Dx Assessment and Plan for all problems:: Continue present regimen. Labs ordered.
[2018-10-24 16:14] LABS: Basophils # 0.1 K/mm3 (0-0.2); Basophils % 0.8 % (0.1-2.0); Eosinophils # 0.5 K/mm3 (0.0-0.4); Eosinophils % 6.8 % (0.1-12.0); Hematocrit 36.9 % (42.0-52.0); Hemoglobin 12.1 g/dL (14.1-18.0); Lymphocytes # 1.6 K/mm3 (0.7-4.5); Lymphocytes % 23.5 % (10-50); Mean Corpuscular HGB Conc 32.9 g/dL (31.8-35.4); Mean Corpuscular Hemoglobin 31.9 pg (27.0-31.2); Mean Corpuscular Volume 97.1 fl (80-94); Mean Platelet Volume 7.3 fl (7.4-10.4); Monocytes # 0.5 K/mm3 (0.1-1.0); Monocytes % 6.5 % (1.7-9.3); Neutrophils # 4.3 K/mm3 (1.8-7.8); Neutrophils % 62.3 % (37.0-80.0); Platelet Count 257 K/mm3 (142-424); Red Cell Distribution Width 13.1 % (11.5-17.5); White Blood Count 6.9 K/mm3 (4.8-10.8)
[2018-10-24 16:26] LABS: Anion Gap 11.4 mEq/L (5-15); Calcium 8.2 mg/dL (8.5-10.1); Potassium 4.4 mmoL/L (3.5-5.1)
--- NOTE | 2018-10-25 08:34 | Progress Note ---
Internal Medicine - PN: Subj *Date: 10/25/18 *Time: 09:27 Interval history: Patient has no new complaints. He is eating and drinking well without problems. It has been out of bed and sat in the chair/recliner most of the day yesterday. He has ongoing wheezing which she says he said all his life. He denies shortness of breath. He denies chest pain. Bowels moved yesterday. He is voiding QS. Exam Vital signs and Labs for Last 24 Hours: Temp Pulse Resp BP Pulse Ox 98.4 F 78 20 104/58 L 96 10/25/18 04:00 10/25/18 04:00 10/25/18 08:00 10/25/18 04:00 10/25/18 08:00 Laboratory Results - last 24 hr 10/24/18 15:35: WBC 6.9, RBC 3.80 L, Hgb 12.1 L, Hct 36.9 L, MCV 97.1 H, MCH 31.9 H, MCHC 32.9, RDW 13.1, Plt Count 257, MPV 7.3 L, Neut % (Auto) 62.3, Lymph % (Auto) 23.5, [place] % (Auto) 6.5, Eos % (Auto) 6.8, Baso % (Auto) 0.8, Neut # (Auto) 4.3, Lymph # (Auto) 1.6, [place] # (Auto) 0.5, Eos # (Auto) 0.5 H, Baso # (Auto) 0.1 10/24/18 15:35: Sodium 135 L, Potassium 4.4, Chloride 100, Carbon Dioxide 28, Anion Gap 11.4, BUN 24 H, Creatinine 1.67 H, Estimated Creat Clear 32, Estimated GFR 39 L, Est GFR ( Amer) 48 L, Glucose 96, Calcium 8.2 L 10/24/18 15:35: Vancomycin Trough 24.2 H I & O for Last 24 hours: Intake & Output 10/22/18 10/23/18 10/24/18 10/25/18 11:59 11:59 11:59 11:59 Intake Total 1945 / 1945 840 / 840 1330 / 1330 720 / 720 Output Total 450 / 450 800 / 800 850 / 850 825 / 825 Balance 1495 / 1495 40 / 40 480 / 480 -105 / -105 Weight 276 lb 9 oz 277 lb 9 oz 276 lb 4 oz Microbiology Reports for the Last 24 Hours: Microbiology 10/23/18 02:00 Urine,Clean Catch Urine Culture - Final NO GROWTH AFTER 48 HOURS - Constitutional no acute distress - *Routine Respiratory Exam Comments: Scattered expiratory wheezing bilaterally - *Routine Cardiovascular Exam Present: RRR - *Routine Abdominal Exam Present: soft, normoactive bowel sounds. Absent: tenderness - *Routine Extremities Exam Comments: Left leg with Javier shows less edema. Right leg with Unna boot without erythema above the edge of the boot. Skin is soft. Dry skin of feet. - *Routine Neurological Exam Present: alert, oriented X3 Assessment and Plan (1) Cellulitis and abscess of right lower extremity Current visit: Yes Status: Acute Category: Medical Code(s): L03.115 - Cellulitis of right lower limb; L02.415 - Cutaneous abscess of right lower limb (2) Hypertension Current visit: Yes Status: Chronic Category: Medical Code(s): I10 - Essential (primary) hypertension (3) CAD (coronary artery disease) Current visit: No Status: Chronic Qualifiers: Coronary Disease-Associated Artery/Lesion type: [place] artery [place] vs. transplanted heart: [place] heart Associated angina: with other forms of angina Qualified Code(s): I25.118 - Atherosclerotic heart disease of [place] coronary artery with other forms of angina pectoris Category: Medical Code(s): I25.10 - Atherosclerotic heart disease of [place] coronary artery without angina pectoris (4) CKD (chronic kidney disease) Current visit: No Status: Chronic Qualifiers: Chronic kidney disease stage: unspecified stage Qualified Code(s): N18.9 - Chronic kidney disease, unspecified Category: Medical Code(s): N18.9 - Chronic kidney disease, unspecified (5) History of coronary artery bypass graft Current visit: No Status: Chronic Category: Surgical Code(s): Z95.1 - Presence of aortocoronary bypass graft (6) MRSA infection Current visit: Yes Status: Acute Category: Medical Code(s): A49.02 - Methicillin resistant Staphylococcus aureus infection, unspecified site (7) Constipation Current visit: Yes Status: Acute Category: Medical Code(s): K59.00 - Constipation, unspecified - Assessment and plan all Dx Assessment and Plan for all problems:: Wound growing staph aureus sensitive to the vancomycin. We will continue with wound care and IV Vanco. Encouraged out of bed activity.
--- NOTE | 2018-10-25 11:06 | Pharmacy Consult Notes ---
- Pharmacy Consult Date: 10/25/18 Time: 11:04 Referring provider: DR. WALKER Reason for Consult:: VANCOMYCIN TROUGH LEVEL Allergies and ADEs:: Allergies Allergy/AdvReac Type Severity Reaction Status Date / Time No Known Allergies Allergy Verified 09/02/18 15:48 Home Medications:: Home Medications Medication Instructions Recorded Confirmed Type coenzyme Q10 100 mg capsule 100 mg PO DAILY 08/10/18 10/20/18 History glucosamine-chondroitin 250 mg-200 2 tab PO QPC 08/10/18 10/20/18 History mg tablet vitamin B complex tablet 1 tab PO DAILY 08/10/18 10/20/18 History metoprolol tartrate 50 mg tablet 25 mg PO BID 90 Days #90 tab 08/24/18 10/20/18 History Aspirin [Aspirin 81mg chewable 81 mg PO DAILY 10/20/18 10/20/18 History tab] Multivitamin [Daily Multiple 1 each PO DAILY 10/20/18 10/20/18 History Vitamin] Nitroglycerin [Nitrostat 0.4mg SL 0.4 mg SL Q5MINP PRN 10/20/18 10/20/18 History Tablet] Ramipril 5 mg PO DAILY 10/20/18 10/20/18 History Rosuvastatin Calcium 10 mg PO HS 10/20/18 10/20/18 History Height: 1.75 m Weight: 125.305 kg Laboratory Results:: Laboratory Results - last 24 hr 10/24/18 15:35: WBC 6.9, RBC 3.80 L, Hgb 12.1 L, Hct 36.9 L, MCV 97.1 H, MCH 31.9 H, MCHC 32.9, RDW 13.1, Plt Count 257, MPV 7.3 L, Neut % (Auto) 62.3, Lymph % (Auto) 23.5, [place] % (Auto) 6.5, Eos % (Auto) 6.8, Baso % (Auto) 0.8, Neut # (Auto) 4.3, Lymph # (Auto) 1.6, [place] # (Auto) 0.5, Eos # (Auto) 0.5 H, Baso # (Auto) 0.1 10/24/18 15:35: Sodium 135 L, Potassium 4.4, Chloride 100, Carbon Dioxide 28, Anion Gap 11.4, BUN 24 H, Creatinine 1.67 H, Estimated Creat Clear 32, Estimated GFR 39 L, Est GFR ( Amer) 48 L, Glucose 96, Calcium 8.2 L 10/24/18 15:35: Vancomycin Trough 24.2 H Medical History: Reports:: Chronic Obstructive Pulmonary Disease (COPD), Coronary Artery Disease, Hyperlipidemia, Hypertension, Myocardial Infarction Denies:: Asthma, Diabetes Mellitus Type 1, Diabetes Mellitus Type 2 Assessment and Plan (1) Cellulitis and abscess of right lower extremity Current visit: Yes Status: Acute Category: Medical Code(s): L03.115 - Cellulitis of right lower limb; L02.415 - Cutaneous abscess of right lower limb (2) Hypertension Current visit: Yes Status: Chronic Category: Medical Code(s): I10 - Essential (primary) hypertension (3) CAD (coronary artery disease) Current visit: No Status: Chronic Qualifiers: Coronary Disease-Associated Artery/Lesion type: [place] artery [place] vs. transplanted heart: [place] heart Associated angina: with other forms of angina Qualified Code(s): I25.118 - Atherosclerotic heart disease of [place] coronary artery with other forms of angina pectoris Category: Medical Code(s): I25.10 - Atherosclerotic heart disease of [place] coronary artery without angina pectoris (4) CKD (chronic kidney disease) Current visit: No Status: Chronic Qualifiers: Chronic kidney disease stage: unspecified stage Qualified Code(s): N18.9 - Chronic kidney disease, unspecified Category: Medical Code(s): N18.9 - Chronic kidney disease, unspecified (5) History of coronary artery bypass graft Current visit: No Status: Chronic Category: Surgical Code(s): Z95.1 - Presence of aortocoronary bypass graft (6) MRSA infection Current visit: Yes Status: Acute Category: Medical Code(s): A49.02 - Methicillin resistant Staphylococcus aureus infection, unspecified site (7) Constipation Current visit: Yes Status: Acute Category: Medical Code(s): K59.00 - Constipation, unspecified - Assessment and plan all Dx Assessment and Plan for all problems:: BASED ON PATIENT FACTORS AND VANCOMYCIN TROUGH LEVEL, RECOMMEND CHANGING VANCOMYCIN TO 1 GM IV Q18H. PHARMACY WILL CONTINUE TO MONITOR DAILY AND ADJUST APPROPRIATE.
--- NOTE | 2018-10-26 09:56 | Pharmacy Consult Notes ---
- Pharmacy Consult Date: 10/26/18 Time: 09:55 Referring provider: DR. WALKER Reason for Consult:: VANCOMYCIN LEVEL AND DOSING CHANGE Allergies and ADEs:: Allergies Allergy/AdvReac Type Severity Reaction Status Date / Time No Known Allergies Allergy Verified 09/02/18 15:48 Home Medications:: Home Medications Medication Instructions Recorded Confirmed Type coenzyme Q10 100 mg capsule 100 mg PO DAILY 08/10/18 10/20/18 History glucosamine-chondroitin 250 mg-200 2 tab PO QPC 08/10/18 10/20/18 History mg tablet vitamin B complex tablet 1 tab PO DAILY 08/10/18 10/20/18 History metoprolol tartrate 50 mg tablet 25 mg PO BID 90 Days #90 tab 08/24/18 10/20/18 History Aspirin [Aspirin 81mg chewable 81 mg PO DAILY 10/20/18 10/20/18 History tab] Multivitamin [Daily Multiple 1 each PO DAILY 10/20/18 10/20/18 History Vitamin] Nitroglycerin [Nitrostat 0.4mg SL 0.4 mg SL Q5MINP PRN 10/20/18 10/20/18 History Tablet] Ramipril 5 mg PO DAILY 10/20/18 10/20/18 History Rosuvastatin Calcium 10 mg PO HS 10/20/18 10/20/18 History Height: 1.75 m Weight: 119.408 kg Laboratory Results:: Laboratory Results - last 24 hr 10/26/18 08:54: Vancomycin Trough 25.8 H Medical History: Reports:: Chronic Obstructive Pulmonary Disease (COPD), Coronary Artery Disease, Hyperlipidemia, Hypertension, Myocardial Infarction Denies:: Asthma, Diabetes Mellitus Type 1, Diabetes Mellitus Type 2 Assessment and Plan (1) Cellulitis and abscess of right lower extremity Current visit: Yes Status: Acute Category: Medical Code(s): L03.115 - Cellulitis of right lower limb; L02.415 - Cutaneous abscess of right lower limb (2) Hypertension Current visit: Yes Status: Chronic Category: Medical Code(s): I10 - Essential (primary) hypertension (3) CAD (coronary artery disease) Current visit: No Status: Chronic Qualifiers: Coronary Disease-Associated Artery/Lesion type: [place] artery [place] vs. transplanted heart: [place] heart Associated angina: with other forms of angina Qualified Code(s): I25.118 - Atherosclerotic heart disease of [place] coronary artery with other forms of angina pectoris Category: Medical Code(s): I25.10 - Atherosclerotic heart disease of [place] coronary artery without angina pectoris (4) CKD (chronic kidney disease) Current visit: No Status: Chronic Qualifiers: Chronic kidney disease stage: unspecified stage Qualified Code(s): N18.9 - Chronic kidney disease, unspecified Category: Medical Code(s): N18.9 - Chronic kidney disease, unspecified (5) History of coronary artery bypass graft Current visit: No Status: Chronic Category: Surgical Code(s): Z95.1 - Presence of aortocoronary bypass graft (6) MRSA infection Current visit: Yes Status: Acute Category: Medical Code(s): A49.02 - Methicillin resistant Staphylococcus aureus infection, unspecified site (7) Constipation Current visit: Yes Status: Acute Category: Medical Code(s): K59.00 - Constipation, unspecified - Assessment and plan all Dx Assessment and Plan for all problems:: BASED ON PATIENT'S VANCOMYCIN LEVEL OF 25.8 MCG/ML, RECOMMEND HOLDING VANCOMYCIN DOSE THIS AM AND RESTARTING AT VANCOMYCIN 1500 MG Q36H AT THIS TIME. PHARMACY WILL FOLLOW DAILY AND ADJUST APPROPRIATE. ESTUARDO LOU, AIDEED
--- NOTE | 2018-10-26 13:29 | Progress Note ---
Internal Medicine - PN: Subj *Date: 10/26/18 *Time: 13:26 Interval history: Clinically stable, he is feeling quite well. Could be discharged with outpatient IV antibiotic, which has been arranged by Case Management. Exam Vital signs and Labs for Last 24 Hours: Temp Pulse Resp BP Pulse Ox 99.6 F 83 20 110/53 L 97 10/26/18 08:00 10/26/18 08:00 10/26/18 08:00 10/26/18 08:00 10/26/18 08:00 Laboratory Results - last 24 hr 10/26/18 08:54: Vancomycin Trough 25.8 H NOTE WEIGHT 263 # 4 OZ I & O for Last 24 hours: Intake & Output 10/24/18 10/25/18 10/26/18 10/27/18 11:59 11:59 11:59 11:59 Intake Total 1330 / 1330 1200 / 1200 1520 / 1520 360 / 360 Output Total 850 / 850 825 / 825 850 / 850 Balance 480 / 480 375 / 375 670 / 670 360 / 360 Weight 276 lb 4 oz 263 lb 4 oz - Constitutional no acute distress - *Routine HEENT Exam Eye: Present: PERRL Comments: tongue is a little dry. - *Routine Respiratory Exam Present: CTA bilaterally - *Routine Cardiovascular Exam Present: RRR - *Routine Abdominal Exam Present: soft (obese) - *Routine Extremities Exam Present: edema (is obviously less. Dressings in place. Wound was seen yesterday. Deep, clean.) Assessment and Plan (1) Cellulitis and abscess of right lower extremity Current visit: Yes Status: Acute Category: Medical Code(s): L03.115 - Cellulitis of right lower limb; L02.415 - Cutaneous abscess of right lower limb (2) Hypertension Current visit: Yes Status: Chronic Category: Medical Code(s): I10 - Essential (primary) hypertension (3) CAD (coronary artery disease) Current visit: No Status: Chronic Qualifiers: Coronary Disease-Associated Artery/Lesion type: [place] artery [place] vs. transplanted heart: [place] heart Associated angina: with other forms of angina Qualified Code(s): I25.118 - Atherosclerotic heart disease of [place] coronary artery with other forms of angina pectoris Category: Medical Code(s): I25.10 - Atherosclerotic heart disease of [place] coronary artery without angina pectoris (4) CKD (chronic kidney disease) Current visit: No Status: Chronic Qualifiers: Chronic kidney disease stage: unspecified stage Qualified Code(s): N18.9 - Chronic kidney disease, unspecified Category: Medical Code(s): N18.9 - Chronic kidney disease, unspecified (5) History of coronary artery bypass graft Current visit: No Status: Chronic Category: Surgical Code(s): Z95.1 - Presence of aortocoronary bypass graft (6) MRSA infection Current visit: Yes Status: Acute Category: Medical Code(s): A49.02 - Methicillin resistant Staphylococcus aureus infection, unspecified site (7) Constipation Current visit: Yes Status: Acute Category: Medical Code(s): K59.00 - Constipation, unspecified - Assessment and plan all Dx Assessment and Plan for all problems:: Discharge today.
--- NOTE | 2018-10-29 21:05 | Discharge Summary ---
General - General Admission date:: 10/20/18 Discharge date: 10/26/18 HPI HPI: Patient was seen in the office of [facility] today for follow-up on cellulitis of his right lower leg. He has been seen daily since 10/18/18 and been on Keflex and Bactrim. He has been doing warm soaks as well. 10/19/2018 he had drainage of the wound in the back of the right lower extremity and culture was obtained. These results are pending. Today in the office the wound is open with some drainage. He had an increase in erythema anteriorly going up almost to the knee and posteriorly on the back of the calf and down to the dorsal aspect of the foot. The area was a bright red and very tender to palpation. The edema around the ankle had increased since the previous day. Dr. Burciaga did see the patient. He was then admitted to acute care for wound care with Unna boot and IV vancomycin along with IV fluids. To note, patient has not been eating and drinking well for the last few days. Patient did have a venous Doppler study on 10/18/2018 which was negative for DVT. Hospital Course Hospital Course: The patient was admitted and started on IV fluids, IV vancomycin, and wound care. Physical therapy did see the patient and applied an Unna boot. He was started on daily Lovenox for DVT prophylaxis. The patient did develop some wheezing, therefore a chest x-ray was ordered and he was started on duo nebs. Chest x-ray showed nothing acute. He did have some blood in his urine, therefore urinalysis and culture were ordered. His urinalysis did show 3+ blood but his wound culture showed no growth after 48 hours. He had a repeat chest x- ray on 10/22/2018 after placement of a PICC line and the PICC line appeared to be in the region of the superior vena cava. His wound culture returned positive fo r MRSA and it was sensitive to vancomycin. He was continued on antibiotics. He did have some constipation and was started on MiraLAX. He seemed to have increased leg edema, therefore he was started on diuretics. His weight was down after diuresis as was his leg edema. The patient improved and was able to get out of bed and sit in a chair. His bowels began moving. He was clinically stable to be discharged home and will need IV outpatient antibiotic treatment. Objective Vital signs: Temp Pulse Resp BP Pulse Ox 99.1 F 66 18 115/63 98 10/26/18 15:46 10/26/18 15:46 10/26/18 15:46 10/26/18 15:46 10/26/18 15:46 Narrative: General: He is alert, oriented, no acute distress, well-nourished; appears a little dry HEENT: Sclera and conjunctival clear, pupils equal round reactive to light and accommodating, TMs normal, translucent Oral cavity: No erythema; mucosa appears dry Neck: Supple, no lymphadenopathy, no carotid bruits, thyroid normal Heart: Regular sinus rhythm Lungs: Clear to auscultation anteriorly and posteriorly Abdomen: Bowel sounds present, soft, obese, nontender Neurologic exam: Alert and oriented Extremities: Left lower leg with edema and discoloration: Right leg with erythema to the knee and on dorsal aspect of the foot; 3 to 4 cm open area of the inner lower leg with some purulent drainage DS: Diagnosis - Discharge Diagnosis (1) Cellulitis and abscess of right lower extremity Status: Acute (2) Hypertension Status: Chronic (3) CAD (coronary artery disease) Status: Chronic (4) CKD (chronic kidney disease) Status: Chronic (5) History of coronary artery bypass graft Status: Chronic (6) MRSA infection Status: Acute (7) Constipation Status: Acute Discharge Plan - Patient Discharge Instructions ACTIVITY: Limited activity DIET: continue same diet Patient Instructions: DI for Cellulitis -- Adult, Cellulitis, High Blood Pressure, DI for Methicillin-Resistant Staph Infection (MRSA), Peripherally Inserted Central Catheter, Peripherally Inserted Central Catheter Infections, Low-Sodium Diet - Follow up Plan Follow up with: Laurence Dockery APRN [Nurse Practitioner] - 11/01/18 Disposition: Home, Self-Nursing Home Medications: Home Medications Medication Instructions Recorded Confirmed Type coenzyme Q10 100 mg capsule 100 mg PO DAILY 08/10/18 10/29/18 History glucosamine-chondroitin 250 mg-200 2 tab PO QPC 08/10/18 10/29/18 History mg tablet vitamin B complex tablet 1 tab PO DAILY 08/10/18 10/29/18 History metoprolol tartrate 50 mg tablet 25 mg PO BID 90 Days #90 tab 08/24/18 10/29/18 History Aspirin [Aspirin 81mg chewable 81 mg PO DAILY 10/20/18 10/29/18 History tab] Multivitamin [Daily Multiple 1 each PO DAILY 10/20/18 10/29/18 History Vitamin] Nitroglycerin [Nitrostat 0.4mg SL 0.4 mg SL Q5MINP PRN 10/20/18 10/29/18 History Tablet] Ramipril 5 mg PO DAILY 10/20/18 10/29/18 History Rosuvastatin Calcium 10 mg PO HS 10/20/18 10/29/18 History Furosemide [Furosemide 40MG tAB] 40 mg PO DAILY 10/27/18 10/29/18 History Vancomycin HCl [Vancomycin 1000mg 1,500 mg IV Q36H 10/27/18 10/29/18 History Vial] metroNIDAZOLE [Flagyl] 500 mg PO TID 10/29/18 10/29/18 History Prescriptions/Medication Reconciliation: Continued vitamin B complex tablet 1 tab PO DAILY glucosamine-chondroitin 250 mg-200 mg tablet 2 tab PO QPC metoprolol tartrate 50 mg tablet 25 mg PO BID 90 Days #90 tab coenzyme Q10 100 mg capsule 100 mg PO DAILY Ramipril 5 mg PO DAILY Nitroglycerin [Nitrostat 0.4mg SL Tablet] 0.4 mg SL Q5MINP PRN PRN Reason: Chest Pain Aspirin [Aspirin 81mg chewable tab] 81 mg PO DAILY Rosuvastatin Calcium 10 mg PO HS Multivitamin [Daily Multiple Vitamin] 1 each PO DAILY No Action Vancomycin HCl [Vancomycin 1000mg Vial] 1,500 mg IV Q36H Furosemide [Furosemide 40MG tAB] 40 mg PO DAILY metroNIDAZOLE [Flagyl] 500 mg PO TID
== END 2018-10-26 16:35 | disposition home or self-care (01) | DRG 603 ==
LOC: 2ND 14:24 → UNDODISIN 10-23 14:15
PROVIDERS: ADMIT Family Medicine; ATTEND Family Medicine
CPT/HCPCS: 36415; 36569; 71010; 71045; 80048; 80053; 80202; 81001; 85025; 87070; 87077; 87086; 87186; 87205; 93971; 97161; 97165; C1751; J3370

== ENCOUNTER 2018-10-27 08:17 | Outpatient (CLI) | payer MEDICARE, SELFPAY ==
[2018-10-27 08:30] VITALS: BP 132/68; PULSE 75; RESP 20; TEMP 36.5
--- NOTE | 2018-10-27 08:59 | HMH.PHACONS ---
- Pharmacy Consult Date: 10/27/18 Time: 08:59 Referring provider: DR. WALKER Reason for Consult:: VANCOMYCIN DOSING Allergies and ADEs:: Allergies Allergy/AdvReac Type Severity Reaction Status Date / Time No Known Allergies Allergy Verified 09/02/18 15:48 Home Medications:: Home Medications Medication Instructions Recorded Confirmed Type coenzyme Q10 100 mg capsule 100 mg PO DAILY 08/10/18 10/20/18 History glucosamine-chondroitin 250 mg-200 2 tab PO QPC 08/10/18 10/20/18 History mg tablet vitamin B complex tablet 1 tab PO DAILY 08/10/18 10/20/18 History metoprolol tartrate 50 mg tablet 25 mg PO BID 90 Days #90 tab 08/24/18 10/20/18 History Aspirin [Aspirin 81mg chewable 81 mg PO DAILY 10/20/18 10/20/18 History tab] Multivitamin [Daily Multiple 1 each PO DAILY 10/20/18 10/20/18 History Vitamin] Nitroglycerin [Nitrostat 0.4mg SL 0.4 mg SL Q5MINP PRN 10/20/18 10/20/18 History Tablet] Ramipril 5 mg PO DAILY 10/20/18 10/20/18 History Rosuvastatin Calcium 10 mg PO HS 10/20/18 10/20/18 History Furosemide [Furosemide 40MG tAB] 40 mg PO DAILY #60 tab 10/26/18 Rx Vancomycin HCl [Vancomycin 1000mg 1,500 mg IV Q36H #5 vial 10/26/18 Rx Vial] Height: 1.75 m Weight: 119 kg Medical History: Reports:: Chronic Obstructive Pulmonary Disease (COPD), Coronary Artery Disease, Hyperlipidemia, Hypertension, Myocardial Infarction Denies:: Asthma, Diabetes Mellitus Type 1, Diabetes Mellitus Type 2 Assessment and Plan - Assessment and plan all Dx Assessment and Plan for all problems:: BASED ON PATIENT'S FACTORS INCLUDING VANCOMYCIN TROUGH LEVELS INPATIENT, RECOMMEND CONTINUING WITH VANCOMYCIN 2000 MG Q48H AT THIS TIME. PHARMACY WILL FOLLOW DAILY AND ADJUST APPROPRIATE. ESTUARDO LOU, PHARMD
[2018-10-27 09:00] VITALS: BP 125/63; PULSE 68; RESP 18
[2018-10-27 09:30] VITALS: BP 133/61; PULSE 68; RESP 18
[2018-10-27 11:51] VITALS: BP 113/60; PULSE 68; RESP 18
== END 2018-10-27 11:00 | disposition home or self-care (01) ==
LOC: INF 08:17
PROVIDERS: Visit Provider Family Medicine
DX: A49.02 Methicillin resistant Staphylococcus aureus infection, unspecified site (principal); L03.115 Cellulitis of right lower limb
CPT/HCPCS: 96365; 96366; J3370

== ENCOUNTER 2018-10-29 08:13 | Outpatient (CLI) | payer MEDICARE, SELFPAY ==
[2018-10-29 08:30] VITALS: BP 97/55; PULSE 68; RESP 20; TEMP 36.8
[2018-10-29 09:00] VITALS: BP 111/52; PULSE 63; RESP 18
[2018-10-29 09:30] VITALS: BP 109/67; PULSE 62; RESP 18
[2018-10-29 10:00] VITALS: BP 117/56; PULSE 61; RESP 16
--- NOTE | 2018-10-29 10:15 | PC.NURSE ---
0447-per pt request notified 's nurse (Radha) regarding two new wounds on his left foot. radha said to make sure pt notifies wound care of areas and to have them call with any concerns. areas are reddened bruises with no open areas on side of left foot.
[2018-10-29 10:30] VITALS: BP 92/52; PULSE 65; RESP 18
[2018-10-29 11:00] VITALS: BP 120/59; PULSE 63; RESP 18; TEMP 36.8
--- NOTE | 2018-10-29 14:38 | PC.NURSE ---
1428-per lab request beatriz pt toribio trough out of picc line.
== END 2018-10-29 11:00 | disposition home or self-care (01) ==
LOC: INF 08:13
PROVIDERS: Visit Provider Family Medicine
DX: L03.115 Cellulitis of right lower limb (principal); A49.02 Methicillin resistant Staphylococcus aureus infection, unspecified site
CPT/HCPCS: 96365; J3370

== ENCOUNTER → 2018-10-29 14:21 | Outpatient (CLI) | payer MEDICARE, SELFPAY ==
[2018-10-29 15:25] LABS: Vancomycin,Trough 37.9 mcg/ml (10.0-20.0)
== END ==
PROVIDERS: Visit Provider Emergency Medicine
DX: L03.115 Cellulitis of right lower limb (principal); A49.02 Methicillin resistant Staphylococcus aureus infection, unspecified site; Z51.81 Encounter for therapeutic drug level monitoring
CPT/HCPCS: 80202

== ENCOUNTER 2018-10-31 08:10 | Outpatient (CLI) | payer MEDICARE, SELFPAY ==
[2018-10-31 08:28] VITALS: BMI 40.2
[2018-10-31 09:06] LABS: Anion Gap 12.9 mEq/L (5-15); Blood Urea Nitrogen 37 mg/dL (7-18); Calcium 8.4 mg/dL (8.5-10.1); Carbon Dioxide 27 mmol/L (21.0-32.0); Chloride 99 mmol/L (98-107); Creatinine Clearance Estimated 27 mL/min (50-200); Creatinine,Serum 1.97 mg/dL (0.70-1.30); Estimated Glomerular Filt Rate 33 ml/min (>60); GFR (African American) 39 ML/MIN (>60); Glucose 136 mg/dL (74-106); Potassium 3.9 mmoL/L (3.5-5.1); Sodium 135 mmol/L (136-145)
[2018-10-31 09:19] VITALS: BP 105/62; PULSE 67; RESP 16; O2SAT 94
[2018-10-31 09:19] LABS: Vancomycin,Trough 17.9 mcg/ml (10.0-20.0)
--- NOTE | 2018-10-31 10:01 | HMH.PHACONS ---
- Pharmacy Consult Date: 10/31/18 Time: 10:01 Referring provider: DR. WALKER Reason for Consult:: VANCOMYCIN TROUGH LEVEL Allergies and ADEs:: Allergies Allergy/AdvReac Type Severity Reaction Status Date / Time No Known Allergies Allergy Verified 10/29/18 08:44 Home Medications:: Home Medications Medication Instructions Recorded Confirmed Type coenzyme Q10 100 mg capsule 100 mg PO DAILY 08/10/18 10/29/18 History glucosamine-chondroitin 250 mg-200 2 tab PO QPC 08/10/18 10/29/18 History mg tablet vitamin B complex tablet 1 tab PO DAILY 08/10/18 10/29/18 History metoprolol tartrate 50 mg tablet 25 mg PO BID 90 Days #90 tab 08/24/18 10/29/18 History Aspirin [Aspirin 81mg chewable 81 mg PO DAILY 10/20/18 10/29/18 History tab] Multivitamin [Daily Multiple 1 each PO DAILY 10/20/18 10/29/18 History Vitamin] Nitroglycerin [Nitrostat 0.4mg SL 0.4 mg SL Q5MINP PRN 10/20/18 10/29/18 History Tablet] Ramipril 5 mg PO DAILY 10/20/18 10/29/18 History Rosuvastatin Calcium 10 mg PO HS 10/20/18 10/29/18 History Furosemide [Furosemide 40MG tAB] 40 mg PO DAILY 10/27/18 10/29/18 History Vancomycin HCl [Vancomycin 1000mg 1,500 mg IV Q36H 10/27/18 10/29/18 History Vial] metroNIDAZOLE [Flagyl] 500 mg PO TID 10/29/18 10/29/18 History Height: 1.75 m Weight: 123.377 kg Laboratory Results:: Laboratory Results - last 24 hr 10/31/18 08:47: Vancomycin Trough 17.9 10/31/18 08:47: Sodium 135 L, Potassium 3.9, Chloride 99, Carbon Dioxide 27, Anion Gap 12.9, BUN 37 H, Creatinine 1.97 H, Estimated Creat Clear 27, Estimated GFR 33 L, Est GFR ( Amer) 39 L, Glucose 136 H, Calcium 8.4 L Medical History: Reports:: Chronic Obstructive Pulmonary Disease (COPD), Coronary Artery Disease, Hyperlipidemia, Hypertension, Myocardial Infarction Denies:: Asthma, Cancer, Diabetes Mellitus Type 1, Diabetes Mellitus Type 2, Internal Pacemaker, MRSA Assessment and Plan - Assessment and plan all Dx Assessment and Plan for all problems:: BASED ON PATIENT FACTORS AND VANCOMYCIN TROUGH LEVEL, RECOMMEND CONTINUING VANCOMYCIN 2000 MG IV Q48H. PHARMACY WILL CONTINUE TO MONITOR DAILY AND ADJUST APPROPRIATE.
== END 2018-10-31 11:55 | disposition home or self-care (01) ==
PROVIDERS: PCP Family Medicine; Visit Provider Family Medicine
DX: L03.115 Cellulitis of right lower limb (principal); A49.02 Methicillin resistant Staphylococcus aureus infection, unspecified site
CPT/HCPCS: 80048; 80202; 96365; 96366; J3370

== ENCOUNTER → 2018-11-01 11:52 | Outpatient (CLI) | payer MEDICARE, SELFPAY ==
[2018-11-01 12:16] LABS: Basophils # 0.1 K/mm3 (0-0.2); Eosinophils # 0.4 K/mm3 (0.0-0.4); Eosinophils % 5.1 % (0.1-12.0); Hematocrit 41.1 % (42.0-52.0); Hemoglobin 13.3 g/dL (14.1-18.0); Lymphocytes # 1.8 K/mm3 (0.7-4.5); Lymphocytes % 20.7 % (10-50); Mean Corpuscular HGB Conc 32.4 g/dL (31.8-35.4); Mean Corpuscular Hemoglobin 31.4 pg (27.0-31.2); Mean Corpuscular Volume 96.8 fl (80-94); Mean Platelet Volume 7.4 fl (7.4-10.4); Monocytes # 0.6 K/mm3 (0.1-1.0); Neutrophils # 5.7 K/mm3 (1.8-7.8); Neutrophils % 66.3 % (37.0-80.0); Platelet Count 283 K/mm3 (142-424); Red Blood Count 4.24 M/mm3 (4.60-6.20); Red Cell Distribution Width 13.5 % (11.5-17.5); White Blood Count 8.6 K/mm3 (4.8-10.8)
[2018-11-01 12:28] LABS: Alanine Aminotransferase 30 U/L (12-78); Albumin Level 3.4 gm/dL (3.4-5.0); Albumin/Globulin Ratio 0.7 (1.1-1.8); Alkaline Phosphatase 66 U/L (46-116); Anion Gap 12.4 mEq/L (5-15); Aspartate Amino Transferase 24 U/L (15-37); Bilirubin,Total 0.4 mg/dL (0.2-1.0); Blood Urea Nitrogen 35 mg/dL (7-18); Calcium 9.1 mg/dL (8.5-10.1); Carbon Dioxide 27 mmol/L (21.0-32.0); Chloride 101 mmol/L (98-107); Creatinine,Serum 1.88 mg/dL (0.70-1.30); Estimated Glomerular Filt Rate 34 ml/min (>60); GFR (African American) 42 ML/MIN (>60); Glucose 106 mg/dL (74-106); Potassium 4.4 mmoL/L (3.5-5.1); Sodium 136 mmol/L (136-145); Total Protein,Serum 8.4 gm/dL (6.4-8.2)
== END ==
PROVIDERS: Visit Provider Nurse Practitioner Family
DX: S81.801D Unspecified open wound, right lower leg, subsequent encounter (principal)
CPT/HCPCS: 80053; 85025; 87040; 87077; 87186

== ENCOUNTER 2018-11-02 08:29 | Outpatient (CLI) | payer MEDICARE, SELFPAY ==
[2018-11-02 08:30] VITALS: BP 106/49; PULSE 67; RESP 20; TEMP 36.8; O2SAT 95
[2018-11-02 09:00] VITALS: BP 103/51; PULSE 65; RESP 18; O2SAT 94
[2018-11-02 09:30] VITALS: BP 102/46; PULSE 76; RESP 18; O2SAT 94
[2018-11-02 10:00] VITALS: BP 97/58; PULSE 71; RESP 20; O2SAT 95
--- NOTE | 2018-11-02 10:00 | PC.NURSE ---
1000-spoke with crystal from Laurence Dockery APRN office about pt's worsening petechial rash on all four extremities.
[2018-11-02 10:30] VITALS: BP 100/44; PULSE 64; RESP 18
--- NOTE | 2018-11-02 10:44 | PC.NURSE ---
1040-Laurence menon aprn in infusion dept. assessing pt's rash. states it looks the same.
--- NOTE | 2018-11-02 10:47 | PC.NURSE ---
0900-wrapped right lower leg/foot with jazmín wrap per order.
[2018-11-02 11:20] VITALS: BP 118/43; PULSE 64; RESP 18; TEMP 36.9; O2SAT 95
== END 2018-11-02 11:20 | disposition home or self-care (01) ==
LOC: INF 08:29
PROVIDERS: Visit Provider Family Medicine
DX: L03.115 Cellulitis of right lower limb (principal); A49.02 Methicillin resistant Staphylococcus aureus infection, unspecified site
CPT/HCPCS: 96365; 96366; G0463; J3370

== ENCOUNTER 2018-11-03 08:27 | Outpatient (CLI) | payer MEDICARE, SELFPAY ==
--- NOTE | 2018-11-03 08:40 | PC.NURSE ---
0840-pt right lower leg wound cleaned with normal saline, packed with wet gauze,covered with dry 4x4 gauze and wrapped with kerlix.
--- NOTE | 2018-11-03 08:40 | PC.NURSE ---
0840-changed left foot/ankle jazmín wrap per milling machine set up operator order.
[2018-11-03 08:50] VITALS: BP 133/59; PULSE 75; RESP 18; TEMP 36.8; O2SAT 94
== END 2018-11-03 08:50 | disposition home or self-care (01) ==
LOC: INF 08:27
PROVIDERS: Visit Provider Family Medicine
DX: L03.115 Cellulitis of right lower limb; A49.02 Methicillin resistant Staphylococcus aureus infection, unspecified site; Z48.00 Encounter for change or removal of nonsurgical wound dressing
CPT/HCPCS: G0463

== ENCOUNTER 2018-11-04 02:45 | Observation (INO) | payer MEDICARE, SELFPAY ==
[2018-11-04] VITALS (10 sets, daily range): BP systolic 125–143; BP diastolic 51–90; PULSE 70–97; RESP 19–22; TEMP 36.5–37.4; O2SAT 93–100; BMI 39.9; BMI 39.8
--- NOTE | 2018-11-04 03:03 | CT_ITS ---
CT head/brain wo con HISTORY: ITS.REASON: Weakness, dizzy ORDERING PHYSICIAN: Anant Marie MD PATIENT AGE: 83 years COMPARISON: TECHNIQUE: Axial images obtained without contrast. Brain and bone windows reviewed. All CT scans at the facility use one or more dose reduction, viz: automated exposure control, ma/kV adjustment per patient size (including targeted exams where dose is matched to indication, i.e. head), or iterative reconstruction technique. FINDINGS: No midline shift, mass effect, intracranial hemorrhage, hydrocephalus, or extra-axial fluid collection is evident. Intracranial vascular calcification is noted. There are involutional changes of age with mild prominence of the ventricles which may be due to underlying volume loss. The calvarium has an unremarkable appearance. No mastoid effusion. Mild mucosal thickening right ethmoid air cells. IMPRESSION: No acute intracranial findings Mild right ethmoid sinus disease
--- NOTE | 2018-11-04 03:03 | XR_ITS ---
XR chest portable HISTORY: ITS.REASON: Weakness, dizzy ORDERING PHYSICIAN: Anant Marie MD PATIENT AGE: 83 years COMPARISON: 10/22/2018 FINDINGS: Prior median sternotomy with CABG. There is a right upper extremity PICC line which is looped in the subclavian vein area. The tip of the line is in the region of the superior vena cava. The lungs are clear. No acute bony anomalies.. The lungs are clear without infiltrates, suspicious nodules, or pleural effusions. There are degenerative changes in the AC joints. IMPRESSION: No acute finding. The right upper extremity PICC line is looped in the region of the subclavian vein with the tip in good position in the region of the superior vena cava
--- NOTE | 2018-11-04 03:05 | PC.NURSE ---
During triage pt started to mumble and pt daughter jumped up and stated, is he having a stroke, pt assessed by nurse, no deficits noted, pt A&Ox4, and following commands.
--- NOTE | 2018-11-04 03:12 | PC.NURSE ---
on phone with Lele
[2018-11-04 03:13] LABS: Basophils # 0.1 K/mm3 (0-0.2); Basophils % 0.7 % (0.1-2.0); Eosinophils # 0.5 K/mm3 (0.0-0.4); Eosinophils % 3.7 % (0.1-12.0); Hematocrit 39.9 % (42.0-52.0); Hemoglobin 13.2 g/dL (14.1-18.0); Lymphocytes # 1.1 K/mm3 (0.7-4.5); Lymphocytes % 8.8 % (10-50); Mean Corpuscular HGB Conc 33.1 g/dL (31.8-35.4); Mean Corpuscular Hemoglobin 32.3 pg (27.0-31.2); Mean Corpuscular Volume 97.7 fl (80-94); Mean Platelet Volume 7.5 fl (7.4-10.4); Monocytes # 0.6 K/mm3 (0.1-1.0); Monocytes % 4.5 % (1.7-9.3); Neutrophils # 10.5 K/mm3 (1.8-7.8); Neutrophils % 82.4 % (37.0-80.0); Platelet Count 321 K/mm3 (142-424); Red Blood Count 4.08 M/mm3 (4.60-6.20); Red Cell Distribution Width 13.7 % (11.5-17.5); White Blood Count 12.7 K/mm3 (4.8-10.8)
[2018-11-04 03:32] LABS: Alanine Aminotransferase 32 U/L (12-78); Albumin Level 3.4 gm/dL (3.4-5.0); Albumin/Globulin Ratio 0.7 (1.1-1.8); Alkaline Phosphatase 81 U/L (46-116); Aspartate Amino Transferase 32 U/L (15-37); Bilirubin,Total 0.5 mg/dL (0.2-1.0); Blood Urea Nitrogen 37 mg/dL (7-18); C-Reactive Protein 1.6 mg/L (0.0-0.9); Calcium 8.6 mg/dL (8.5-10.1); Carbon Dioxide 24 mmol/L (21.0-32.0); Chloride 99 mmol/L (98-107); Creatinine Clearance Estimated 50 mL/min (50-200); Estimated Glomerular Filt Rate 34 ml/min (>60); GFR (African American) 41 ML/MIN (>60); Globulin 4.9 gm/dl (1.3-3.2); Glucose 152 mg/dL (74-106); Sodium 134 mmol/L (136-145); Total Protein,Serum 8.3 gm/dL (6.4-8.2); Troponin I < 0.02 ng/ml (0.00-0.06)
[2018-11-04 03:42] LABS: Lactic Acid 2.7 mmol/L (0.4-2.0)
[2018-11-04 03:51] LABS: Erythrocyte Sedimentation Rate 60 mm/hr (0-20)
--- NOTE | 2018-11-04 04:33 | HMH.EDSYNC ---
ED Disposition Clinical Impression: Cellulitis and abscess of right lower extremity, MRSA infection Syncope Qualifiers: Syncope type: vasovagal syncope Qualified Code(s): R55 - Syncope and collapse CKD (chronic kidney disease) Qualifiers: Chronic kidney disease stage: stage 3 (moderate) Qualified Code(s): N18.3 - Chronic kidney disease, stage 3 (moderate) Disposition: Admitted as Observation Condition on Discharge: Fair Referrals: Yuly Burciaga MD [Primary Care Provider] - - Critical Care Critical Care Time: No Attestation: On 11/04/18, the high probability of a clinically significant, sudden or life threatening deterioration of the following system(s) required my full and direct attention, intervention and personal management. The time I documented below is in addition to time spent performing reported procedures but includes the following listed in this critical care notation. Medical Decision Making - Medical Records Medical records reviewed: Yes: I reviewed the patient's medical records. - Rodolfo Inquiry Pt receiving controlled substance: No Vital Signs: 11/04/18 02:46 Temperature 97.7 F Temperature Source Oral Pulse Rate [Right] 72 Respiratory Rate 20 Blood Pressure [Right Arm] 127/77 Blood Pressure Mean [Right Arm] 93 02 Sat by Pulse Oximetry 100 Oxygen Delivery Method Room Air - Lab Data Lab results reviewed: Yes: I reviewed the patient's lab results. Lab Results 11/04/18 03:00: WBC 12.7 H D, RBC 4.08 L, Hgb 13.2 L, Hct 39.9 L, MCV 97.7 H, MCH 32.3 H, MCHC 33.1, RDW 13.7, Plt Count 321, MPV 7.5, Neut % (Auto) 82.4 H, Lymph % (Auto) 8.8 L, [place] % (Auto) 4.5, Eos % (Auto) 3.7, Baso % (Auto) 0.7, Neut # (Auto) 10.5 H, Lymph # (Auto) 1.1, [place] # (Auto) 0.6, Eos # (Auto) 0.5 H, Baso # (Auto) 0.1, ESR 60 H 11/04/18 03:00: Sodium 134 L, Potassium 4.0, Chloride 99, Carbon Dioxide 24, Anion Gap 15.0, BUN 37 H, Creatinine 1.90 H, Estimated Creat Clear 50, Estimated GFR 34 L, Est GFR ( Amer) 41 L, Glucose 152 H, Calcium 8.6, Total Bilirubin 0.5, AST 32 D, ALT 32, Alkaline Phosphatase 81, Troponin I < 0.02, C-Reactive Protein 1.6 H, Total Protein 8.3 H, Albumin 3.4, Globulin 4.9 H, Albumin/Globulin Ratio 0.7 L 11/04/18 03:00: Lactate 2.7 H Result diagrams: 11/04/18 03:00 11/04/18 03:00 Orders (Tests/Meds): ORDERS Category Date Time Status CT head/brain wo con Stat Cat Scan 11/04/18 03:03 Taken Blood Culture Stat Micro 11/04/18 03:00 Received 12-lead EKG Request [ECG Request by /Lesley] Stat Y 11/04/18 03:05 Ordered - Radiology Data #1 Image(s): Chest Image Reviewed: Yes I reviewed the patient's radiology image Preliminary Findings: Normal/NAD - CT Data CT Scan: Head Time Received: 04:[address] Reviewed: Yes: I have viewed the radiologist's interpretation Preliminary Findings: Normal/NAD - ECG Data Tracing #1 Normal Sinus Rhythm: Yes Ischemic changes: non-specific ST-T wave changes - Physician Consults Physician Consulted: april Reason -: Admission Syncope HPI - General Chief Complaint: Weakness Stated Complaint: Dizzy, weakness\ Time Seen by Provider: 11/04/18 03:00 Mode of Arrival: EMS Source of Information: Patient, Relative, EMS, Medical Record Limitations: No Limitations Description of Symptoms (Recalled from ER Triage Doc. by RN): Pt states since midnight last night he has been dizzy, weak, has the shakes and his vision has bee blurred. Pt also has rash on parts of his body, pt states it showed up when he began to take this new abx, pt taking flagyl and clindamycin. Pt states he being treated for MRSA on a wound on his right ankle. - History of Present Illness HPI narrative: pt with recent admit for mrsa infection on vancomycin per pic line but also on flagyl and clindamycin gor colitis and this am had episode or weakness and syncope going to bathroom - no sz or chest pain - feel chill complaint: almost passed out Onset (ago): h
--- NOTE | 2018-11-04 04:37 | ED_ITS ---
ED Disposition Clinical Impression: Cellulitis and abscess of right lower extremity, MRSA infection Syncope Qualifiers: Syncope type: vasovagal syncope Qualified Code(s): R55 - Syncope and collapse CKD (chronic kidney disease) Qualifiers: Chronic kidney disease stage: stage 3 (moderate) Qualified Code(s): N18.3 - Chronic kidney disease, stage 3 (moderate) Disposition: Admitted as Observation Condition on Discharge: Fair Referrals: Yuly Burciaga MD [Primary Care Provider] - - Critical Care Critical Care Time: No Attestation: On 11/04/18, the high probability of a clinically significant, sudden or life threatening deterioration of the following system(s) required my full and direct attention, intervention and personal management. The time I documented below is in addition to time spent performing reported procedures but includes the following listed in this critical care notation. Medical Decision Making - Medical Records Medical records reviewed: Yes: I reviewed the patient's medical records. - Rodolfo Inquiry Pt receiving controlled substance: No Vital Signs: 11/04/18 02:46 Temperature 97.7 F Temperature Source Oral Pulse Rate [Right] 72 Respiratory Rate 20 Blood Pressure [Right Arm] 127/77 Blood Pressure Mean [Right Arm] 93 02 Sat by Pulse Oximetry 100 Oxygen Delivery Method Room Air - Lab Data Lab results reviewed: Yes: I reviewed the patient's lab results. Lab Results 11/04/18 03:00: WBC 12.7 H D, RBC 4.08 L, Hgb 13.2 L, Hct 39.9 L, MCV 97.7 H, MCH 32.3 H, MCHC 33.1, RDW 13.7, Plt Count 321, MPV 7.5, Neut % (Auto) 82.4 H, Lymph % (Auto) 8.8 L, [place] % (Auto) 4.5, Eos % (Auto) 3.7, Baso % (Auto) 0.7, Neut # (Auto) 10.5 H, Lymph # (Auto) 1.1, [place] # (Auto) 0.6, Eos # (Auto) 0.5 H, Baso # (Auto) 0.1, ESR 60 H 11/04/18 03:00: Sodium 134 L, Potassium 4.0, Chloride 99, Carbon Dioxide 24, Anion Gap 15.0, BUN 37 H, Creatinine 1.90 H, Estimated Creat Clear 50, Estimated GFR 34 L, Est GFR ( Amer) 41 L, Glucose 152 H, Calcium 8.6, Total Bilirubin 0.5, AST 32 D, ALT 32, Alkaline Phosphatase 81, Troponin I < 0.02, C- Reactive Protein 1.6 H, Total Protein 8.3 H, Albumin 3.4, Globulin 4.9 H, Albumi n/Globulin Ratio 0.7 L 11/04/18 03:00: Lactate 2.7 H Result diagrams: 11/04/18 03:00 11/04/18 03:00 Orders (Tests/Meds): ORDERS Category Date Time Status CT head/brain wo con Stat Cat Scan 11/04/18 03:03 Taken Blood Culture Stat Micro 11/04/18 03:00 Received 12-lead EKG Request [ECG Request by /Lesley] Stat Y 11/04/18 03:05 Ordered - Radiology Data #1 Image(s): Chest Image Reviewed: Yes I reviewed the patient's radiology image Preliminary Findings: Normal/NAD - CT Data CT Scan: Head Time Received: 04:[address] Reviewed: Yes: I have viewed the radiologist's interpretation Preliminary Findings: Normal/NAD - ECG Data Tracing #1 Normal Sinus Rhythm: Yes Ischemic changes: non-specific ST-T wave changes - Physician Consults Physician Consulted: april Reason -: Admission Syncope HPI - General Chief Complaint: Weakness Stated Complaint: Dizzy, weakness\ Time Seen by Provider: 11/04/18 03:00 Mode of Arrival: EMS Source of Information: [facility]
--- NOTE | 2018-11-04 04:59 | PC.NURSE ---
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
[2018-11-04 07:02] LABS: Basophils # 0.1 K/mm3 (0-0.2); Basophils % 0.6 % (0.1-2.0); Eosinophils # 0.2 K/mm3 (0.0-0.4); Eosinophils % 1.3 % (0.1-12.0); Hemoglobin 12.1 g/dL (14.1-18.0); Lymphocytes # 0.7 K/mm3 (0.7-4.5); Lymphocytes % 5.6 % (10-50); Mean Corpuscular HGB Conc 33.6 g/dL (31.8-35.4); Mean Corpuscular Hemoglobin 31.9 pg (27.0-31.2); Mean Corpuscular Volume 94.9 fl (80-94); Mean Platelet Volume 7.4 fl (7.4-10.4); Monocytes # 0.7 K/mm3 (0.1-1.0); Monocytes % 5.6 % (1.7-9.3); Neutrophils # 10.9 K/mm3 (1.8-7.8); Neutrophils % 86.9 % (37.0-80.0); Platelet Count 265 K/mm3 (142-424); Red Blood Count 3.79 M/mm3 (4.60-6.20); Red Cell Distribution Width 13.6 % (11.5-17.5); White Blood Count 12.6 K/mm3 (4.8-10.8)
[2018-11-04 07:15] LABS: MANUAL DIFFERENTIAL MANUAL DIFFERENTIAL (MANUAL DIFF)
[2018-11-04 07:15] LABS: Reflex Lactic Add Lactic Reflex
--- NOTE | 2018-11-04 07:35 | P.CONPHA_ITS ---
[facility] Pharmacy VTE Monitoring - Patient Demographics Admission date: 11/04/18 Report Date: 11/04/18 Time: 07:35 Allergies/Adverse Reactions: Patient Allergies No Known Allergies Allergy (Verified 10/29/18 08:44) Height: 1.75 m Weight: 122.271 kg Patient Problems: Current Active Problems (Updated 11/04/18 @ 04:40 by Anant Marie MD) Cellulitis and abscess of right lower extremity (Acute) MRSA infection (Acute) Syncope (Acute) CKD (chronic kidney disease) (Chronic) - VTE Risk Labs: VTE Related Lab Results Hgb 12.1 g/dL (14.1-18.0) L 11/04/18 06:22 Hct 36.0 % (42.0-52.0) L 11/04/18 06:22 Plt Count 265 K/mm3 (142-424) 11/04/18 06:22 BUN 37 mg/dL (7-18) H 11/04/18 03:00 Creatinine 1.90 mg/dL (0.70-1.30) H 11/04/18 03:00 Estimated Creat Clear 50 mL/min (50-200) 11/04/18 03:00 Was VTE Risk Assessment Performed: Yes VTE Score: 5 VTE Risk Level: Low Risk - Prophylaxis VTE Prophylaxis Ordered?: Yes Types of VTE Prophylaxis: TEDS Knee High Location of Applied Device: Left Leg - VTE Diagnosis Confirmed Treatment or plan recommended: Continue Current Treatment
[2018-11-04 07:46] LABS: Blood Urea Nitrogen 35 mg/dL (7-18); Calcium 8.6 mg/dL (8.5-10.1); Carbon Dioxide 26 mmol/L (21.0-32.0); Chloride 100 mmol/L (98-107); Creatinine Clearance Estimated 56 mL/min (50-200); Creatinine,Serum 1.69 mg/dL (0.70-1.30); Estimated Glomerular Filt Rate 39 ml/min (>60); GFR (African American) 47 ML/MIN (>60); Glucose 115 mg/dL (74-106); Magnesium 2.1 mg/dL (1.4-2.2); Sodium 135 mmol/L (136-145); Troponin I < 0.02 ng/ml (0.00-0.06)
[2018-11-04 08:08] LABS: Lactic Acid Follow Up (RFLX 1) 0.8 (0.4-2.0)
[2018-11-04 09:26] LABS: Eosinophils % 1 % (0-3); Lymphocytes % 5 % (10-50); Monocytes % 5 % (2-9); Neutrophils % 83 % (42-76); Platelet Estimate Normal; RBC Morphology Normal; Total Cells Counted 100
--- NOTE | 2018-11-04 10:30 | HMH.PHACONS ---
- Pharmacy Consult Date: 11/04/18 Time: 10:30 Referring provider: DR. WALKER Reason for Consult:: VANCOMYCIN DOSING Allergies and ADEs:: Allergies Allergy/AdvReac Type Severity Reaction Status Date / Time No Known Allergies Allergy Verified 10/29/18 08:44 Home Medications:: Home Medications Medication Instructions Recorded Confirmed Type coenzyme Q10 100 mg capsule 100 mg PO DAILY 08/10/18 11/04/18 History glucosamine-chondroitin 250 mg-200 2 tab PO QPC 08/10/18 11/04/18 History mg tablet vitamin B complex tablet 1 tab PO DAILY 08/10/18 11/04/18 History metoprolol tartrate 50 mg tablet 25 mg PO BID 90 Days #90 tab 08/24/18 11/04/18 History Aspirin [Aspirin 81mg chewable 81 mg PO DAILY 10/20/18 11/04/18 History tab] Multivitamin [Daily Multiple 1 each PO DAILY 10/20/18 11/04/18 History Vitamin] Nitroglycerin [Nitrostat 0.4mg SL 0.4 mg SL Q5MINP PRN 10/20/18 11/04/18 History Tablet] Ramipril 5 mg PO DAILY 10/20/18 11/04/18 History Rosuvastatin Calcium 10 mg PO HS 10/20/18 11/04/18 History Furosemide [Furosemide 40MG tAB] 40 mg PO DAILY 10/27/18 11/04/18 History Vancomycin HCl [Vancomycin 1000mg 2,000 mg IV Q48H 10/27/18 11/04/18 History Vial] Height: 1.75 m Weight: 122.271 kg Laboratory Results:: Laboratory Results - last 24 hr 11/04/18 03:00: WBC 12.7 H D, RBC 4.08 L, Hgb 13.2 L, Hct 39.9 L, MCV 97.7 H, MCH 32.3 H, MCHC 33.1, RDW 13.7, Plt Count 321, MPV 7.5, Neut % (Auto) 82.4 H, Lymph % (Auto) 8.8 L, [place] % (Auto) 4.5, Eos % (Auto) 3.7, Baso % (Auto) 0.7, Neut # (Auto) 10.5 H, Lymph # (Auto) 1.1, [place] # (Auto) 0.6, Eos # (Auto) 0.5 H, Baso # (Auto) 0.1, ESR 60 H 11/04/18 03:00: Sodium 134 L, Potassium 4.0, Chloride 99, Carbon Dioxide 24, Anion Gap 15.0, BUN 37 H, Creatinine 1.90 H, Estimated Creat Clear 50, Estimated GFR 34 L, Est GFR ( Amer) 41 L, Glucose 152 H, Calcium 8.6, Total Bilirubin 0.5, AST 32 D, ALT 32, Alkaline Phosphatase 81, Troponin I < 0.02, C-Reactive Protein 1.6 H, Total Protein 8.3 H, Albumin 3.4, Globulin 4.9 H, Albumin/Globulin Ratio 0.7 L 11/04/18 03:00: Lactate 2.7 H 11/04/18 06:22: WBC 12.6 H, RBC 3.79 L, Hgb 12.1 L, Hct 36.0 L, MCV 94.9 H, MCH 31.9 H, MCHC 33.6, RDW 13.6, Plt Count 265, MPV 7.4, Neut % (Auto) 86.9 H, Lymph % (Auto) 5.6 L, [place] % (Auto) 5.6, Eos % (Auto) 1.3, Baso % (Auto) 0.6, Neut # (Auto) 10.9 H, Lymph # (Auto) 0.7, [place] # (Auto) 0.7, Eos # (Auto) 0.2, Baso # (Auto) 0.1, Total Counted 100, Neutrophils % (Manual) 83 H, Band Neutrophils % 6.0, Lymphocytes % (Manual) 5 L, Monocytes % (Manual) 5, Eosinophils % (Manual) 1, Platelet Estimate Normal, RBC Morphology Normal 11/04/18 06:22: Sodium 135 L, Potassium 4.0, Chloride 100, Carbon Dioxide 26, Anion Gap 13.0, BUN 35 H, Creatinine 1.69 H, Estimated Creat Clear 56, Estimated GFR 39 L, Est GFR ( Amer) 47 L, Glucose 115 H D, Calcium 8.6, Magnesium 2.1, Troponin I < 0.02 11/04/18 07:38: Lactate 0.8 Medical History: Reports:: Chronic Obstructive Pulmonary Disease (COPD), Coronary Artery Disease, Hyperlipidemia, Hypertension, MRSA, Myocardial Infarction Denies:: Asthma, Cancer, Diabetes Mellitus Type 1, Diabetes Mellitus Type 2, Internal Pacemaker Assessment and Plan - Assessment and plan all Dx Assessment and Plan for all problems:: PATIENT HAS BEEN RECEIVING VANCOMYCIN 2 GM IV Q48H AN OUTPATIENT SINCE 10/27/18. ORIGINALLY, VANCOMYCIN WAS STARTED AN INPATIENT ON 10/20/18. RECOMMEND CONTINUING VANCOMYCIN 2 GM IV Q48H AT THIS TIME. LAST VANCOMYCIN TROUGH LEVEL: 17.9 MCG/ML ON 10/31/18 LAST DOSE WILL BE ON 11/09/18
--- NOTE | 2018-11-04 10:34 | P.CONPHA_ITS ---
- Pharmacy Consult Date: 11/04/18 Time: 10:30 Referring provider: DR. WALKER Reason for Consult:: VANCOMYCIN DOSING Allergies and ADEs:: Allergies Allergy/AdvReac Type Severity Reaction Status Date / Time No Known Allergies Allergy Verified 10/29/18 08:44 Home Medications:: Home Medications Medication Instructions Recorded Confirmed Type coenzyme Q10 100 mg capsule 100 mg PO DAILY 08/10/18 11/04/18 History glucosamine-chondroitin 250 mg-200 2 tab PO QPC 08/10/18 11/04/18 History mg tablet vitamin B complex tablet 1 tab PO DAILY 08/10/18 11/04/18 History metoprolol tartrate 50 mg tablet 25 mg PO BID 90 Days #90 tab 08/24/18 11/04/18 History Aspirin [Aspirin 81mg chewable 81 mg PO DAILY 10/20/18 11/04/18 History tab] Multivitamin [Daily Multiple 1 each PO DAILY 10/20/18 11/04/18 History Vitamin] Nitroglycerin [Nitrostat 0.4mg SL 0.4 mg SL Q5MINP PRN 10/20/18 11/04/18 History Tablet] Ramipril 5 mg PO DAILY 10/20/18 11/04/18 History Rosuvastatin Calcium 10 mg PO HS 10/20/18 11/04/18 History Furosemide [Furosemide 40MG tAB] 40 mg PO DAILY 10/27/18 11/04/18 History Vancomycin HCl [Vancomycin 1000mg 2,000 mg IV Q48H 10/27/18 11/04/18 History Vial] Height: 1.75 m Weight: 122.271 kg Laboratory Results:: Laboratory Results - last 24 hr 11/04/18 03:00: WBC 12.7 H D, RBC 4.08 L, Hgb 13.2 L, Hct 39.9 L, MCV 97.7 H, MCH 32.3 H, MCHC 33.1, RDW 13.7, Plt Count 321, MPV 7.5, Neut % (Auto) 82.4 H, Lymph % (Auto) 8.8 L, [place] % (Auto) 4.5, Eos % (Auto) 3.7, Baso % (Auto) 0.7, Neut # (Auto) 10.5 H, Lymph # (Auto) 1.1, [place] # (Auto) 0.6, Eos # (Auto) 0.5 H, Baso # (Auto) 0.1, ESR 60 H 11/04/18 03:00: Sodium 134 L, Potassium 4.0, Chloride 99, Carbon Dioxide 24, Anion Gap 15.0, BUN 37 H, Creatinine 1.90 H, Estimated Creat Clear 50, Estimated GFR 34 L, Est GFR ( Amer) 41 L, Glucose 152 H, Calcium 8.6, Total Bilirubin 0.5, AST 32 D, ALT 32, Alkaline Phosphatase 81, Troponin I < 0.02, C- Reactive Protein 1.6 H, Total Protein 8.3 H, Albumin 3.4, Globulin 4.9 H, [place] umin/Globulin Ratio 0.7 L 11/04/18 03:00: Lactate 2.7 H 11/04/18 06:22: WBC 12.6 H, RBC 3.79 L, Hgb 12.1 L, Hct 36.0 L, MCV 94.9 H, MCH 31.9 H, MCHC 33.6, RDW 13.6, Plt Count 265, MPV 7.4, Neut % (Auto) 86.9 H, Lymph % (Auto) 5.6 L, [place] % (Auto) 5.6, Eos % (Auto) 1.3, Baso % (Auto) 0.6, Neut # (Auto) 10.9 H, Lymph # (Auto) 0.7, [place] # (Auto) 0.7, Eos # (Auto) 0.2, Baso # (Auto) 0.1, Total Counted 100, Neutrophils % (Manual) 83 H, Band Neutrophils % 6.0, Lymphocytes % (Manual) 5 L, Monocytes % (Manual) 5, Eosinophils % (Manual) 1, Platelet Estimate Normal, RBC Morphology Normal 11/04/18 06:22: Sodium 135 L, Potassium 4.0, Chloride 100, Carbon Dioxide 26, Anion Gap 13.0, BUN 35 H, Creatinine 1.69 H, Estimated Creat Clear 56, Estimated GFR 39 L, Est GFR ( Amer) 47 L, Glucose 115 H D, Calcium 8.6, Magnesium 2.1, Troponin I < 0.02 11/04/18 07:38: Lactate 0.8 Medical History: Reports:: Chronic Obstructive Pulmonary Disease (COPD), Coronary Artery Disease, Hyperlipidemia, Hypertension, MRSA, Myocardial Infarction Denies:: Asthma, Cancer, Diabetes Mellitus Type 1, Diabetes Mellitus Type 2, Internal Pacemaker Assessment and Plan - Assessment and plan all Dx Assessment and Plan for all problems:: PATIENT HAS BEEN RECEIVING VANCOMYCIN 2 GM IV Q48H AN OUTPATIENT SINCE 10/27/18. ORIGINALLY, VANCOMYCIN WAS STARTED AN INP
--- NOTE | 2018-11-04 10:47 | HMH.HP ---
*Admission Date: 11/04/18 <CampbellKortney - 11/04/18 10:48> *Chief complaint: near syncope, rash <Kortney Hightower 11/04/18 10:48> *History of present illness: Mr. Danielson is an 83-year-old male who was just recently discharged from [facility] on 10/26/2018 after an admission for right lower leg abscess with a positive culture for MRSA. He was discharged home with a PICC line on IV vancomycin. He was also taking metronidazole by mouth. He was seen in the office in follow-up by Dr. Royal on 10/29/2018 and was started on oral clindamycin as well. He states he felt he was doing well until approximately 3 days ago when he began getting a red rash on his arms and legs. He states this was not pruritic. He did follow-up with Laurence Dockery in the office and blood cultures were ordered. These just came back positive for strep parasanguinous and yeast. Last night around midnight he took his oral antibiotics with some Ovaltine and immediately began feeling funny. He states he began having blurry vision and became very dizzy and nauseated. He had to go to the bathroom and sat on the toilet and was unable to get up. He states he was extremely shaky and had to call his daughter to come and help him. She then called 911 and he was transported to the emergency room for further evaluation and treatment. His chest x-ray showed nothing acute and his head CT showed nothing acute other than some right ethmoid sinus disease. His white blood cell count was slightly elevated as was his renal function. He was admitted for further evaluation and treatment. <Kortney Hightower 11/04/18 11:19> [facility] History I have reviewed the patient's past medical history: Yes <Kortney Hightower 11/04/18 11:19> Medical History: Reports:: Chronic Obstructive Pulmonary Disease (COPD), Coronary Artery Disease, Hyperlipidemia, Hypertension, MRSA, Myocardial Infarction Denies:: Asthma, Cancer, Diabetes Mellitus Type 1, Diabetes Mellitus Type 2, Internal Pacemaker <Kortney Hightower 11/04/18 10:48> *Have you ever received a pneumonia vaccine?: Yes <Kortney Hightower 11/04/18 10:48> *Have you received a flu vaccine this season?: Yes <CampbellKortney 11/04/18 10:48> Other Surgeries: Yes: CABG, Cardiac Surgery, Other. 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 Level: Completed Graduate School <Kortney Hightower 11/04/18 10:48> Smoking Status: Never smoker <CampbellKortney 11/04/18 10:48> # Packs/Day (cigarettes): 0 <Kortney Hightower 11/04/18 10:48> #Yrs smoked (if former smoker): 0 <Kortney Hightower 11/04/18 10:48> Alcohol Intake: never <Kortney Hightower 11/04/18 10:48> Alcohol Intake Frequency:: other <Kortney Hightower 11/04/18 10:48> Substance Use Type: denies use <CampbellKortney 11/04/18 10:48> *Occupational Status:: retired <CampbellKortney 11/04/18 10:48> Housing: house <CampbellKortney 11/04/18 10:48> Household Members: none <CampbellKortney 11/04/18 10:48> *Travel in the last 8 weeks: None <Ravin Hightowera 11/04/18 10:48> - Psychiatric History Expresses thoughts of harming self/others: None <Kortney Hightower 11/04/18 10:48> Suicide Plan Description: No Plan <Kortney Hightower 11/04/18 10:48> Family Hx:: Cancer, Coronary Artery Disease <Kortney Hightower 11/04/18 11:19> Review of Systems - Constitutional Reports chills, Reports weakness <Kortney Hightower 11/04/18 11:19> - Eyes Reports blurry vision, Denies double vision <Kortney Hightower 11/04/18 11:19> - ENT Reports poor balance, Reports dizziness, Denies headache(s), Denies nasal congestion, Denies sore throat <Kortney Hightower 11/04/18 11:19> - *Cardiovascular Denies chest pain, Denies rapid, pounding, or irregular heartbeat <Kortney Hightower 11/04/18 11:19> - *Respiratory Denies chest congestion, Denies cough, Denies shortness of breath <Kortney Hightower 11/04
--- NOTE | 2018-11-04 10:48 | P.HP_ITS ---
*Admission Date: 11/04/18 <SorinRavin blacka - 11/04/18 10:48> *Chief complaint: near syncope, rash <Ravin Hightowera 11/04/18 10:48> *History of present illness: Mr. Danielson is an 83-year-old male who was just recently discharged from [facility] on 10/26/2018 after an admis norma for right lower leg abscess with a positive culture for MRSA. He was discharged home with a PICC line on IV vancomycin. He was also taking metronidazole by mouth. He was seen in the office in follow-up by Dr. Royal on 10/29/2018 and was started on oral clindamycin as well. He states he felt he was doing well until approximately 3 days ago when he began getting a red rash on his arms and legs. He states this was not pruritic. He did follow-up with Laurence Dockery in the office and blood cultures were ordered. These just came back positive for strep parasanguinous and yeast. Last night around midnight he took his oral antibiotics with some Ovaltine and immediately began feeling funny. He states he began having blurry vision and became very dizzy and nauseated. He had to go to the bathroom and sat on the toilet and was unable to get up. He states he was extremely shaky and had to call his daughter to come and help him. She then called 911 and he was transported to the emergency room for further evaluation and treatment. His chest x-ray showed nothing acute and his head CT showed nothing acute other than some right ethmoid sinus disease. His white blood cell count was slightly elevated as was his renal function. He was admitted for further evaluation and treatment. <CampbellKortney 11/04/18 11:19> [facility] History I have reviewed the patient's past medical history: Yes <CampbellKortney 11/04/18 11:19> Medical History: Reports:: Chronic Obstructive Pulmonary Disease (COPD), Coronary Artery Disease, Hyperlipidemia, Hypertension, MRSA, Myocardial Infarction Denies:: Asthma, Cancer, Diabetes Mellitus Type 1, Diabetes Mellitus Type 2, Internal Pacemaker <Kortney Hightower 11/04/18 10:48> *Have you ever received a pneumonia vaccine?: Yes <Kortney Hightower 11/04/18 10:48> *Have you received a flu vaccine this season?: Yes <Kortney Hightower 11/04/18 10:48> Other Surgeries: Yes: CABG, Cardiac Surgery, Other. No: Pacemaker <CampbellKortney 11/04/18 11:19> Amputation: No <Kortney Hightower 11/04/18 10:48> Fractures: No <Kortney Hightower 11/04/18 10:48> - *Social History Educational Level: Completed Graduate School <CampbellKortney 11/04/18 10:48> Smoking Status: Never smoker <Kortney Hightower 11/04/18 10:48> # Packs/Day (cigarettes): 0 <SorinwayneKortney 11/04/18 10:48> #Yrs smoked (if former smoker): 0 <SorinwayneKortney 11/04/18 10:48> Alcohol Intake: never <SorinwayneKortney 11/04/18 10:48> Alcohol Intake Frequency:: other <CampbellKortney 11/04/18 10:48> Substance Use Type: denies use <Kortney Hightower 11/04/18 10:48> *Occupational Status:: retired <Kortney Hightower 11/04/18 10:48> Housing: house <Kortney Hightower 11/04/18 10:48> Household Members: none <Kortney Hightower 11/04/18 10:48> *Travel in the last 8 weeks: None <CampbellKortney 11/04/18 10:48> - Psychiatric History Expresses thoughts of harming self/others: None <CampbellKortney 11/04/18 10:48> Suicide Plan Description: No Plan <CampbellKortney 11/04/18 10:48> Family Hx:: Cancer, Coronary Artery Disease <CampbellKortney 11/04/18 11:19> Review of Systems - Constitutional Reports chills, Reports weakness <Ravin Hightowera 11/04/18 11:19> - Eyes Reports blurry vision, Denies double vision <Kortney Hightower 11/04/18 11:19> - ENT Reports poor balance, Reports dizziness, Denies headache(s), Denies nasal congestion, Denies sore th
--- NOTE | 2018-11-04 10:48 | HMH.PHAINT ---
MEDICATION RECONCILIATION COMPLETED ON PATIENT USING EXTERNAL FILL HISTORY FROM PHARMACY WELL LIST FROM PHYSICIAN'S OFFICE. -AIDEE CABRERAD
[2018-11-04 11:28] LABS: Troponin I < 0.02 ng/ml (0.00-0.06)
--- NOTE | 2018-11-04 18:22 | PC.NURSE ---
patient has had no complaints this shift. has been very talkative and in good spirits. concerned about some of his weakness. rings out as needed. did change dressing on his ankle. tolerated that well and area had mild serious sang drainage. vss will continue to monitor.
--- NOTE | 2018-11-04 18:41 | PC.NURSE ---
red rash remains on backs of arms and legs
[2018-11-05 04:00] VITALS: BP 114/68; PULSE 81; RESP 18; TEMP 36.6; O2SAT 95
--- NOTE | 2018-11-05 05:22 | PC.NURSE ---
PT ALERT AND ORIENTED. NO EPISODES OF SYNCOPE. IV SECURE AND PATENT, INFUSING NS @ 50/HR. +MRSA RT ANKLE WOUND FROM RECENT ADMISSION. PT HAS PICC LINE, WAS RECEIVING IV ABX AND DSG CHANGES OUT PATIENT. PT HAS NO LABS OR TESTS SCHEDULED FOR TODAY. RESPIRATIONS EVEN AND UNLABORED ON ROOM AIR. BREATH SOUNDS EQUAL AND CLEAR. NO C/O PAIN. 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 RASH NOTED ON BACK OF FOREARMS, LIKELY FROM ABX. HE ALREADY HAD THESE PRIOR TO ADMISSION. HE DOES NOT C/O ITCHING, PAIN OR DISCOMFORT FROM THIS. PT SLEPT LONG INTERVALS THIS SHIFT. CONTACT ISOLATION PRECAUTIONS FOR MRSA IN WOUND. PT STABLE. WILL CONTINUE TO MONITOR. REPORT TO BE GIVEN TO ONCOMING NURSE.
[2018-11-05 05:57] VITALS: BMI 39.6
[2018-11-05 08:00] VITALS: BP 149/85; PULSE 89; RESP 19; TEMP 36.7; O2SAT 96
--- NOTE | 2018-11-05 08:40 | HMH.ACPN2 ---
<Kortney Hightower - Last Filed: 11/05/18 08:40> Internal Medicine - PN: Subj *Date: 11/05/18 *Time: 08:40 Interval history: Patient states he is feeling much better today. He has had no more near syncopal episodes. His rash is starting to resolve. He slept well last night and ate a good breakfast this morning. He denies any pain. He is anxious to go home. Exam Vital signs and Labs for Last 24 Hours: Temp Pulse Resp BP Pulse Ox 97.9 F 81 18 114/68 95 11/05/18 04:00 11/05/18 04:00 11/05/18 04:00 11/05/18 04:00 11/05/18 04:00 Laboratory Results - last 24 hr 11/04/18 06:22: Total Counted 100, Neutrophils % (Manual) 83 H, Band Neutrophils % 6.0, Lymphocytes % (Manual) 5 L, Monocytes % (Manual) 5, Eosinophils % (Manual) 1, Platelet Estimate Normal, RBC Morphology Normal 11/04/18 11:03: Troponin I < 0.02 I & O for Last 24 hours: Intake & Output 11/02/18 11/03/18 11/04/18 11/05/18 11:59 11:59 11:59 11:59 Intake Total 1987 / 1987 Output Total 1425 / 1425 Balance 563 / 563 Weight 269 lb 9 oz 268 lb 5 oz - Constitutional no acute distress - *Routine Respiratory Exam Present: CTA bilaterally - *Routine Cardiovascular Exam Present: RRR - *Routine Abdominal Exam Present: soft, normoactive bowel sounds. Absent: tenderness - *Routine Extremities Exam Present: edema (bilateral LE's, dressings in place on bilateral lower legs) - *Routine Skin Exam Present: rash (erythematous petechial rash on the arms and legs starting to fade) Assessment and Plan (1) Near syncope Current visit: Yes Status: Acute Category: Medical Code(s): R55 - Syncope and collapse (2) Cellulitis and abscess of right lower extremity Current visit: Yes Status: Acute Category: Medical Code(s): L03.115 - Cellulitis of right lower limb; L02.415 - Cutaneous abscess of right lower limb (3) MRSA infection Current visit: Yes Status: Acute Category: Medical Code(s): A49.02 - Methicillin resistant Staphylococcus aureus infection, unspecified site (4) CKD (chronic kidney disease) Current visit: Yes Status: Chronic Qualifiers: Chronic kidney disease stage: stage 3 (moderate) Qualified Code(s): N18.3 - Chronic kidney disease, stage 3 (moderate) Category: Medical Code(s): N18.9 - Chronic kidney disease, unspecified (5) CAD (coronary artery disease) Current visit: No Status: Chronic Qualifiers: Coronary Disease-Associated Artery/Lesion type: [place] artery [place] vs. transplanted heart: [place] heart Associated angina: with other forms of angina Qualified Code(s): I25.118 - Atherosclerotic heart disease of [place] coronary artery with other forms of angina pectoris Category: Medical Code(s): I25.10 - Atherosclerotic heart disease of [place] coronary artery without angina pectoris (6) HLD (hyperlipidemia) Current visit: No Status: Chronic Qualifiers: Hyperlipidemia type: mixed hyperlipidemia Qualified Code(s): E78.2 - Mixed hyperlipidemia Category: Medical Code(s): E78.5 - Hyperlipidemia, unspecified (7) HTN (hypertension) Current visit: No Status: Chronic Qualifiers: Hypertension type: essential hypertension Qualified Code(s): I10 - Essential (primary) hypertension Category: Medical Code(s): I10 - Essential (primary) hypertension (8) History of coronary artery bypass graft Current visit: No Status: Chronic Category: Surgical Code(s): Z95.1 - Presence of aortocoronary bypass graft (9) Rash Current visit: Yes Status: Acute Category: Medical Code(s): R21 - Rash and other nonspecific skin eruption (10) Bacteremia Current visit: Yes Status: Acute Category: Medical Code(s): R78.81 - Bacteremia (11) Streptococcus C Current visit: Yes Status: Acute Category: Medical Code(s): A49.1 - Streptococcal infection, unspecified site (12) Delores glabrata infection Current visit: Yes Status: Acute
--- NOTE | 2018-11-05 12:12 | HMH.PHAINT ---
DISCHARGE COUNSELING COMPLETED ON PATIENT. NEW MEDICATION IS CASPOFUNGIN WHICH PATIENT WILL BE RECEIVING ON AN OUTPATIENT BASIS FOR 14 DAYS. PATIENT IS ALSO CONTINUING VANCOMYCIN TO COMPLETE A 21 DAY COURSE. PATIENT HAD NO QUESTIONS AT THIS TIME. -ELIE CABRERA
--- NOTE | 2018-11-05 13:04 | HMH.DCSUM ---
General - General Admission date:: 11/04/18 <Jazmyn Royal - 11/05/18 14:01> 11/04/18 <CampbellKortney - 11/05/18 13:11> Discharge date: 11/05/18 <CampbellRavina - 11/05/18 13:11> HPI HPI: Mr. Danielson is an 83-year-old male who was just recently discharged from [facility] on 10/26/2018 after an admission for right lower leg abscess with a positive culture for MRSA. He was discharged home with a PICC line on IV vancomycin. He was also taking metronidazole by mouth. He was seen in the office in follow-up by Dr. Royal on 10/29/2018 and was started on oral clindamycin as well. He states he felt he was doing well until approximately 3 days ago when he began getting a red rash on his arms and legs. He states this was not pruritic. He did follow-up with Laurence Dockery in the office and blood cultures were ordered. These just came back positive for strep parasanguinous and yeast. Last night around midnight he took his oral antibiotics with some Ovaltine and immediately began feeling funny. He states he began having blurry vision and became very dizzy and nauseated. He had to go to the bathroom and sat on the toilet and was unable to get up. He states he was extremely shaky and had to call his daughter to come and help him. She then called 911 and he was transported to the emergency room for further evaluation and treatment. His chest x-ray showed nothing acute and his head CT showed nothing acute other than some right ethmoid sinus disease. His white blood cell count was slightly elevated as was his renal function. He was admitted for further evaluation and treatment. <CampbellKortney - 11/05/18 13:11> Hospital Course Hospital Course: The patient's chest x-ray showed nothing acute and his PICC line was in good position. His head CT showed nothing acute. There was mild right ethmoid sinus disease. His white blood cell count was elevated as was his lactic acid and renal functions. He was started on some IV fluids. It was initially felt his rash was caused by 1 of the oral antibiotics he had been taking. Both the clindamycin and Flagyl were discontinued. He was continued on vancomycin for his MRSA infection. He had a blood culture that had been ordered in the office that came back positive for strep parasanguinous and Delores galbrata. An antifungal was added due to the Delores in his blood culture. His petechiae could have been due to an untreated fungal bacteremia. The patient's renal function did improve and he began feeling better. His lactic acid normalized. His rash began fading. He had no more near syncopal episodes and felt he could return home. He was stable to be discharged home on IV vancomycin and IV caspofungin and he will have these infusions done at the hospital. Blood cultures will be drawn from his PICC line before discharge as he felt the previous blood cultures were drawn from the PICC line as well. <Kortney Hightower - 11/05/18 13:11> Objective Vital signs: Temp Pulse Resp BP Pulse Ox 98.0 F 89 19 149/85 H 96 11/05/18 08:00 11/05/18 08:00 11/05/18 08:00 11/05/18 08:00 11/05/18 08:00 <Jazmyn Royal - 11/05/18 14:01> Temp Pulse Resp BP Pulse Ox 98.0 F 89 19 149/85 H 96 11/05/18 08:00 11/05/18 08:00 11/05/18 08:00 11/05/18 08:00 11/05/18 08:00 <Kortney Hightower - 11/05/18 13:11> Narrative: - Constitutional no acute distress - *Routine HEENT Exam Head: Present: normocephalic Eye: Present: EOMI, PERRL ENT: Present: mucous membranes dry - *Routine Neck Exam Present: supple. Absent: lymphadenopathy - *Routine Respiratory Exam Present: CTA bilaterally - *Routine Cardiovascular Exam Present: RRR - *Routine Abdominal Exam Present: soft, normoactive bowel sounds. Absent: tenderness - *Routine Extremities Exam Present: edema (mild bilateral LE edema). Absent: cyanosis, clubbing - *Routine Skin Exam Present: rash
--- NOTE | 2018-11-05 13:10 | P.DS_ITS ---
General - General Admission date:: 11/04/18 <Jazmyn Royal - 11/05/18 14:01> 11/04/18 <CampbellKortney - 11/05/18 13:11> Discharge date: 11/05/18 <CampbellRavina - 11/05/18 13:11> HPI HPI: Mr. Danielson is an 83-year-old male who was just recently discharged from [facility] on 10/26/2018 after an admission for right lower leg abscess with a positive culture for MRSA. He was discharged home with a PICC line on IV vancomycin. He was also taking metronidazole by mouth. He was seen in the office in follow-up by Dr. Royal on 10/29/2018 and was started on oral clindamycin as well. He states he felt he was doing well until approximately 3 days ago when he began getting a red rash on his arms and legs. He states this was not pruritic. He did follow-up with Laurence Dockery in the office and blood cultures were ordered. These just came back positive for strep parasanguinous and yeast. Last night around midnight he took his oral antibiotics with some Ovaltine and immediately began feeling funny. He states he began having blurry vision and became very dizzy and nauseated. He had to go to the bathroom and sat on the toilet and was unable to get up. He states he was extremely shaky and had to call his daughter to come and help him. She then called 911 and he was transported to the emergency room for further evaluation and treatment. His chest x-ray showed nothing acute and his head CT showed nothing acute other than some right ethmoid sinus disease. His white blood cell count was slightly elevated as was his renal function. He was admitted for further evaluation and treatment. <CampbellKortney - 11/05/18 13:11> Hospital Course Hospital Course: The patient's chest x-ray showed nothing acute and his PICC line was in good position. His head CT showed nothing acute. There was mild right ethmoid sinus disease. His white blood cell count was elevated as was his lactic acid and r enal functions. He was started on some IV fluids. It was initially felt his rash was caused by 1 of the oral antibiotics he had been taking. Both the clindamycin and Flagyl were discontinued. He was continued on vancomycin for his MRSA infection. He had a blood culture that had been ordered in the office that came back positive for strep parasanguinous and Delores galbrata. An antifungal was added due to the Delores in his blood culture. His petechiae could have been due to an untreated fungal bacteremia. The patient's renal function did improve and he began feeling better. His lactic acid normalized. His rash began fading. He had no more near syncopal episodes and felt he could return home. He was stable to be discharged home on IV vancomycin and IV caspofungin and he will have these infusions done at the hospital. Blood cultures will be drawn from his PICC line before discharge as he felt the previous blood cultures were drawn from the PICC line as well. <Kortney Hightower - 11/05/18 13:11> Objective Vital signs: Temp Pulse Resp BP Pulse Ox 98.0 F 89 19 149/85 H 96 11/05/18 08:00 11/05/18 08:00 11/05/18 08:00 11/05/18 08:00 11/05/18 08:00 <Jazmyn Royal - 11/05/18 14:01> Temp Pulse Resp BP Pulse Ox 98.0 F 89 19 149/85 H 96 11/05/18 08:00 11/05/18 08:00 11/05/18 08:00 11/05/18 08:00 11/05/18 08:00 <Kortney Hightower - 11/05/18 13:11> Narrative: - Constitutional no acute distress - *Routine HEENT Exam Head: Present: normocephalic Eye: Present: EOMI, PERRL
== END 2018-11-05 13:54 | disposition home or self-care (01) ==
LOC: ER 04:40 → ICU 05:15 → 2ND 17:24
PROVIDERS: Admitting Provider Emergency Medicine; Emergency Provider Emergency Medicine; PCP Family Medicine; Visit Provider Emergency Medicine
DX: R55 Syncope and collapse (principal); L03.115 Cellulitis of right lower limb; B95.62 Methicillin resistant Staphylococcus aureus infection as the cause of diseases classified elsewhere; N18.3 Chronic kidney disease, stage 3 (moderate); J44.9 Chronic obstructive pulmonary disease, unspecified; I25.10 Atherosclerotic heart disease of native coronary artery without angina pectoris; I12.9 Hypertensive chronic kidney disease with stage 1 through stage 4 chronic kidney disease, or unspecified chronic kidney disease; I25.2 Old myocardial infarction; E78.2 Mixed hyperlipidemia; R21 Rash and other nonspecific skin eruption; B37.9 Candidiasis, unspecified; B95.4 Other streptococcus as the cause of diseases classified elsewhere; J01.20 Acute ethmoidal sinusitis, unspecified; Z95.1 Presence of aortocoronary bypass graft; Z82.49 Family history of ischemic heart disease and other diseases of the circulatory system; Z79.899 Other long term (current) drug therapy; Z80.9 Family history of malignant neoplasm, unspecified; Z79.82 Long term (current) use of aspirin
CPT/HCPCS: 70450; 71045; 80048; 80053; 83605; 83735; 84484; 85007; 85025; 85651; 86140; 87040; 93005; 99284; G0378; J3370

== ENCOUNTER → 2018-11-06 08:18 | Outpatient (CLI) | payer MEDICARE, SELFPAY ==
[2018-11-06 09:18] LABS: Vancomycin,Trough 15.2 mcg/ml (10.0-20.0)
[2018-11-06 09:30] LABS: Anion Gap 13.7 mEq/L (5-15); Blood Urea Nitrogen 22 mg/dL (7-18); Calcium 8.4 mg/dL (8.5-10.1); Carbon Dioxide 25 mmol/L (21.0-32.0); Chloride 103 mmol/L (98-107); Creatinine,Serum 1.63 mg/dL (0.70-1.30); Estimated Glomerular Filt Rate 41 ml/min (>60); GFR (African American) 49 ML/MIN (>60); Glucose 136 mg/dL (74-106); Potassium 3.7 mmoL/L (3.5-5.1); Sodium 138 mmol/L (136-145)
[2018-11-06 09:31] VITALS: BP 127/55; BP 136/64; PULSE 68; PULSE 75; RESP 16; RESP 18; TEMP 36.8; O2SAT 95; O2SAT 98; BMI 39.9
--- NOTE | 2018-11-06 15:35 | PC.NURSE ---
dressings were changed per written order. wet to dry with kerlix noted to rle and jazmín wrap noted to lle.
== END ==
PROVIDERS: PCP Family Medicine; Visit Provider Emergency Medicine
DX: L03.115 Cellulitis of right lower limb (principal); A49.02 Methicillin resistant Staphylococcus aureus infection, unspecified site
CPT/HCPCS: 80048; 80202; 96365; 96366; 96367; G0463; J3370

== ENCOUNTER → 2018-11-07 08:30 | Outpatient (CLI) | payer MEDICARE, SELFPAY ==
[2018-11-07 09:08] VITALS: BP 155/56; PULSE 65; RESP 18; TEMP 36.6; O2SAT 94; BMI 39.9
== END ==
PROVIDERS: PCP Family Medicine; Visit Provider Emergency Medicine
DX: L03.115 Cellulitis of right lower limb (principal); A49.02 Methicillin resistant Staphylococcus aureus infection, unspecified site
CPT/HCPCS: 96365; G0463

== ENCOUNTER 2018-11-08 08:28 | Outpatient (CLI) | payer MEDICARE, SELFPAY ==
[2018-11-08] VITALS (8 sets, daily range): BP systolic 109–129; BP diastolic 49–63; PULSE 64–74; RESP 17–20; O2SAT 94–98
--- NOTE | 2018-11-08 09:35 | PC.NURSE ---
0930-changed left foot/ankle jazmín wrap per md order.
== END 2018-11-08 12:40 | disposition home or self-care (01) ==
LOC: INF 08:28
PROVIDERS: Visit Provider Emergency Medicine
DX: L03.115 Cellulitis of right lower limb (principal); A49.02 Methicillin resistant Staphylococcus aureus infection, unspecified site
CPT/HCPCS: 96365; 96366; 96367; G0463; J3370

== ENCOUNTER 2018-11-09 08:24 | Outpatient (CLI) | payer MEDICARE, SELFPAY ==
[2018-11-09 08:35] VITALS: BP 100/66; PULSE 82; RESP 20; TEMP 36.9; O2SAT 95
[2018-11-09 09:30] VITALS: BP 95/65; PULSE 68; RESP 20; TEMP 36.9; O2SAT 95
[2018-11-09 10:00] VITALS: BP 98/65; PULSE 68; RESP 20; TEMP 36.9; O2SAT 95
== END 2018-11-09 10:00 | disposition home or self-care (01) ==
LOC: INF 08:24
PROVIDERS: Visit Provider Emergency Medicine
DX: L03.115 Cellulitis of right lower limb (principal); A49.02 Methicillin resistant Staphylococcus aureus infection, unspecified site
CPT/HCPCS: 96365

== ENCOUNTER 2018-11-10 08:15 | Outpatient (CLI) | payer MEDICARE, SELFPAY ==
[2018-11-10 08:40] VITALS: BP 117/55; PULSE 73; RESP 18; TEMP 36.8; O2SAT 95
[2018-11-10 09:00] VITALS: BP 113/42; PULSE 66; RESP 18; O2SAT 94
[2018-11-10 09:55] VITALS: BP 131/54; PULSE 65; RESP 18; O2SAT 97
== END 2018-11-10 09:55 | disposition home or self-care (01) ==
LOC: INF 08:33
PROVIDERS: Visit Provider Emergency Medicine
DX: L03.115 Cellulitis of right lower limb (principal); A49.02 Methicillin resistant Staphylococcus aureus infection, unspecified site
CPT/HCPCS: 96365; G0463

== ENCOUNTER 2018-11-11 08:05 | Outpatient (CLI) | payer MEDICARE, SELFPAY ==
[2018-11-11 08:25] VITALS: BP 116/59; PULSE 87; RESP 18; O2SAT 95
[2018-11-11 08:55] VITALS: BP 121/80; PULSE 74; RESP 18
[2018-11-11 09:25] VITALS: BP 106/48; PULSE 68; RESP 18
== END 2018-11-11 09:40 | disposition home or self-care (01) ==
LOC: INF 08:15
PROVIDERS: Visit Provider Emergency Medicine
DX: L03.115 Cellulitis of right lower limb (principal); A49.02 Methicillin resistant Staphylococcus aureus infection, unspecified site
CPT/HCPCS: 96365; G0463

== ENCOUNTER 2018-11-12 08:27 | Outpatient (CLI) | payer MEDICARE, SELFPAY ==
[2018-11-12 08:35] VITALS: BP 130/62; PULSE 74; RESP 18; O2SAT 94
[2018-11-12 09:05] VITALS: BP 132/59; PULSE 68; RESP 18
[2018-11-12 09:35] VITALS: BP 130/55; PULSE 65; RESP 18
== END 2018-11-12 09:55 | disposition home or self-care (01) ==
LOC: INF 08:27
PROVIDERS: Visit Provider Emergency Medicine
DX: L03.115 Cellulitis of right lower limb (principal); A49.02 Methicillin resistant Staphylococcus aureus infection, unspecified site
CPT/HCPCS: 96365; G0463

== ENCOUNTER 2018-11-13 08:17 | Outpatient (CLI) | payer MEDICARE, SELFPAY ==
[2018-11-13 09:00] VITALS: BP 135/69; PULSE 79; RESP 18; TEMP 36.9; O2SAT 96
[2018-11-13 10:53] VITALS: BP 142/74; PULSE 61; RESP 18; TEMP 36.9; O2SAT 98
== END 2018-11-13 10:40 | disposition home or self-care (01) ==
LOC: INF 08:19
PROVIDERS: PCP Emergency Medicine; Visit Provider Emergency Medicine
DX: L03.115 Cellulitis of right lower limb (principal); A49.02 Methicillin resistant Staphylococcus aureus infection, unspecified site
CPT/HCPCS: 96365; G0463

== ENCOUNTER 2018-11-14 08:01 | Outpatient (CLI) | payer MEDICARE, SELFPAY ==
[2018-11-14 08:30] VITALS: BP 133/65; PULSE 66; RESP 16; O2SAT 95
[2018-11-14 10:30] VITALS: BP 144/78; PULSE 73; RESP 16; O2SAT 98
== END 2018-11-14 10:30 | disposition home or self-care (01) ==
LOC: INF 08:03
PROVIDERS: PCP Family Medicine; Visit Provider Emergency Medicine
DX: L03.115 Cellulitis of right lower limb (principal); A49.02 Methicillin resistant Staphylococcus aureus infection, unspecified site
CPT/HCPCS: 96365; G0463

== ENCOUNTER → 2018-11-15 08:01 | Outpatient (CLI) | payer MEDICARE, SELFPAY ==
[2018-11-15 08:13] VITALS: BP 164/81; PULSE 67; RESP 18; TEMP 36.6; O2SAT 96; BMI 38.7
[2018-11-15 09:55] VITALS: BP 149/62; PULSE 72; RESP 18; TEMP 36.7; O2SAT 96
== END ==
PROVIDERS: PCP Emergency Medicine; Visit Provider Emergency Medicine
DX: L03.115 Cellulitis of right lower limb (principal); A49.02 Methicillin resistant Staphylococcus aureus infection, unspecified site
CPT/HCPCS: 96365; G0463

== ENCOUNTER 2018-11-16 08:12 | Outpatient (CLI) | payer MEDICARE, SELFPAY ==
[2018-11-16 08:29] VITALS: BP 136/71; PULSE 69; RESP 20; O2SAT 97
[2018-11-16 09:50] VITALS: BP 139/66; PULSE 55; RESP 20; O2SAT 95
== END 2018-11-16 09:50 | disposition home or self-care (01) ==
LOC: INF 08:12
PROVIDERS: Visit Provider Emergency Medicine
DX: L03.115 Cellulitis of right lower limb (principal); A49.02 Methicillin resistant Staphylococcus aureus infection, unspecified site
CPT/HCPCS: 96365; G0463

== ENCOUNTER 2018-11-18 08:00 | Outpatient (CLI) | payer MEDICARE, SELFPAY ==
[2018-11-18 08:23] VITALS: BP 122/72; PULSE 78; RESP 18; TEMP 36.8; O2SAT 94; BMI 38.7
[2018-11-18 08:56] VITALS: BP 125/63; PULSE 67; RESP 18; TEMP 36.6; O2SAT 94
[2018-11-18 09:30] VITALS: BP 98/58; PULSE 67; RESP 18; O2SAT 96
[2018-11-18 10:00] VITALS: BP 108/53; PULSE 59; RESP 18; O2SAT 96
--- NOTE | 2018-11-18 10:13 | PC.NURSE ---
Patient stated that he was seen in the ER 11/17/18, MD Valdes seen patient in the ER and patient stated she changed the dressing in the ER and it was different from what he as getting, RN contacted MD office. MD Valdes called back and RN obtained Telephone orders, apply adaptic dressing cover with gauze, wrap with kerlix, change dressing daily. RN changed dressing per new orders.
== END 2018-11-18 10:20 | disposition home or self-care (01) ==
LOC: INF 08:20
PROVIDERS: Visit Provider Emergency Medicine
DX: L03.115 Cellulitis of right lower limb (principal); A49.02 Methicillin resistant Staphylococcus aureus infection, unspecified site; Z48.00 Encounter for change or removal of nonsurgical wound dressing
CPT/HCPCS: 96365; G0463

== ENCOUNTER 2018-11-19 08:00 | Outpatient (CLI) | payer MEDICARE, SELFPAY | END 2018-11-19 08:45 | disposition home or self-care (01) | LOC: INF 08:12 | PROVIDERS: Visit Provider Emergency Medicine | DX: L03.115 Cellulitis of right lower limb (principal); A49.02 Methicillin resistant Staphylococcus aureus infection, unspecified site; Z48.00 Encounter for change or removal of nonsurgical wound dressing | CPT/HCPCS: G0463 ==

== ENCOUNTER 2018-11-20 08:15 | Outpatient (CLI) | payer MEDICARE, SELFPAY ==
[2018-11-20 08:15] VITALS: BP 114/52; PULSE 72; RESP 20; TEMP 36.4; O2SAT 98
[2018-11-20 08:41] VITALS: BP 114/52; PULSE 72; RESP 20; TEMP 36.4; O2SAT 98; BMI 39.1
--- NOTE | 2018-11-20 08:44 | PC.NURSE ---
cleansed area to right ankle with NS. Applied adaptic, covered with gauze and secured with kerlix and tape. Patient tolerated this well.
== END 2018-11-20 08:20 | disposition home or self-care (01) ==
LOC: INF 08:16
PROVIDERS: PCP Family Medicine; Visit Provider Emergency Medicine
DX: L03.115 Cellulitis of right lower limb (principal); A49.02 Methicillin resistant Staphylococcus aureus infection, unspecified site; Z48.00 Encounter for change or removal of nonsurgical wound dressing
CPT/HCPCS: G0463

== ENCOUNTER → 2018-11-21 08:06 | Outpatient (CLI) | payer MEDICARE, SELFPAY ==
[2018-11-21 08:15] VITALS: BP 132/66; PULSE 64; RESP 18; TEMP 36.6; O2SAT 95
[2018-11-21 08:39] VITALS: BP 126/62; PULSE 65; RESP 18; TEMP 36.6; O2SAT 98
== END ==
PROVIDERS: PCP Emergency Medicine; Visit Provider Emergency Medicine
DX: Z48.00 Encounter for change or removal of nonsurgical wound dressing (principal); L03.115 Cellulitis of right lower limb; A49.02 Methicillin resistant Staphylococcus aureus infection, unspecified site
CPT/HCPCS: G0463

== ENCOUNTER 2018-11-22 08:18 | Outpatient (CLI) | payer MEDICARE, SELFPAY ==
[2018-11-22 10:15] VITALS: BP 154/72; PULSE 68; RESP 20; TEMP 36.9
== END 2018-11-22 08:25 | disposition home or self-care (01) ==
LOC: INF 08:18
PROVIDERS: Visit Provider Emergency Medicine
DX: L03.115 Cellulitis of right lower limb (principal); A49.02 Methicillin resistant Staphylococcus aureus infection, unspecified site; Z48.00 Encounter for change or removal of nonsurgical wound dressing
CPT/HCPCS: G0463

== ENCOUNTER 2018-11-23 08:11 | Outpatient (CLI) | payer MEDICARE, SELFPAY | END 2018-11-23 08:40 | disposition home or self-care (01) | LOC: INF 08:11 | PROVIDERS: Visit Provider Emergency Medicine | DX: L03.115 Cellulitis of right lower limb (principal); A49.02 Methicillin resistant Staphylococcus aureus infection, unspecified site; Z48.00 Encounter for change or removal of nonsurgical wound dressing | CPT/HCPCS: G0463 ==

== ENCOUNTER 2018-11-24 08:00 | Outpatient (CLI) | payer MEDICARE, SELFPAY ==
[2018-11-24 08:29] VITALS: BP 122/60; PULSE 96; RESP 20; TEMP 36.7; O2SAT 97; BMI 39.1
== END 2018-11-24 08:40 | disposition home or self-care (01) ==
LOC: INF 08:15
PROVIDERS: Visit Provider Emergency Medicine
DX: L03.115 Cellulitis of right lower limb (principal); A49.02 Methicillin resistant Staphylococcus aureus infection, unspecified site; Z48.00 Encounter for change or removal of nonsurgical wound dressing
CPT/HCPCS: G0463

== ENCOUNTER 2018-11-25 08:20 | Outpatient (CLI) | payer MEDICARE, SELFPAY ==
[2018-11-25 09:19] VITALS: BP 107/54; PULSE 66; RESP 18; TEMP 36.7; O2SAT 97
== END 2018-11-25 09:20 | disposition home or self-care (01) ==
LOC: INF 08:20
PROVIDERS: Visit Provider Emergency Medicine
DX: L03.115 Cellulitis of right lower limb (principal); A49.02 Methicillin resistant Staphylococcus aureus infection, unspecified site; Z48.00 Encounter for change or removal of nonsurgical wound dressing
CPT/HCPCS: G0463

== ENCOUNTER 2018-11-26 08:16 | Outpatient (CLI) | payer MEDICARE, SELFPAY | END 2018-11-26 08:44 | disposition home or self-care (01) | LOC: INF 08:16 | PROVIDERS: Visit Provider Emergency Medicine | DX: L03.115 Cellulitis of right lower limb (principal); A49.02 Methicillin resistant Staphylococcus aureus infection, unspecified site; Z48.00 Encounter for change or removal of nonsurgical wound dressing | CPT/HCPCS: G0463 ==

== ENCOUNTER 2018-11-27 08:06 | Outpatient (CLI) | payer MEDICARE, SELFPAY ==
[2018-11-27 08:19] VITALS: BP 131/56; PULSE 79; RESP 20; TEMP 36.6; O2SAT 96
[2018-11-27 08:40] VITALS: BP 138/62; PULSE 78; RESP 20; O2SAT 96
== END 2018-11-27 08:40 | disposition home or self-care (01) ==
LOC: INF 08:08
PROVIDERS: PCP Emergency Medicine; Visit Provider Emergency Medicine
DX: Z48.00 Encounter for change or removal of nonsurgical wound dressing (principal); L03.115 Cellulitis of right lower limb; A49.02 Methicillin resistant Staphylococcus aureus infection, unspecified site
CPT/HCPCS: G0463

== ENCOUNTER 2018-11-28 08:09 | Outpatient (CLI) | payer MEDICARE, SELFPAY ==
[2018-11-28 08:30] VITALS: BP 127/61; PULSE 74; RESP 18; TEMP 36.6; O2SAT 93
== END 2018-11-28 08:39 | disposition home or self-care (01) ==
LOC: INF 08:10
PROVIDERS: PCP Family Medicine; Visit Provider Emergency Medicine
DX: L03.115 Cellulitis of right lower limb (principal); A49.02 Methicillin resistant Staphylococcus aureus infection, unspecified site; Z48.00 Encounter for change or removal of nonsurgical wound dressing
CPT/HCPCS: G0463

== ENCOUNTER 2018-11-29 08:20 | Outpatient (CLI) | payer MEDICARE, SELFPAY ==
[2018-11-29 08:50] VITALS: BP 112/51; PULSE 61; RESP 18; O2SAT 95
== END 2018-11-29 08:50 | disposition home or self-care (01) ==
LOC: INF 08:20
PROVIDERS: Visit Provider Emergency Medicine
DX: L03.115 Cellulitis of right lower limb (principal); A49.02 Methicillin resistant Staphylococcus aureus infection, unspecified site; Z48.00 Encounter for change or removal of nonsurgical wound dressing
CPT/HCPCS: G0463

== ENCOUNTER 2018-11-30 08:05 | Outpatient (CLI) | payer MEDICARE, SELFPAY | END 2018-11-30 08:45 | disposition home or self-care (01) | LOC: INF 08:30 | PROVIDERS: Visit Provider Emergency Medicine | DX: L03.115 Cellulitis of right lower limb (principal); A49.02 Methicillin resistant Staphylococcus aureus infection, unspecified site; Z48.00 Encounter for change or removal of nonsurgical wound dressing | CPT/HCPCS: G0463 ==

== ENCOUNTER 2018-12-02 08:18 | Outpatient (CLI) | payer MEDICARE, SELFPAY | END 2018-12-02 08:50 | disposition home or self-care (01) | LOC: INF 08:19 | PROVIDERS: Visit Provider Emergency Medicine | DX: L03.115 Cellulitis of right lower limb (principal); A49.02 Methicillin resistant Staphylococcus aureus infection, unspecified site; Z48.00 Encounter for change or removal of nonsurgical wound dressing | CPT/HCPCS: G0463 ==

== ENCOUNTER 2018-12-03 08:00 | Outpatient (CLI) | payer MEDICARE, SELFPAY | END 2018-12-03 08:25 | disposition home or self-care (01) | LOC: INF 08:15 | PROVIDERS: Visit Provider Emergency Medicine | DX: L03.115 Cellulitis of right lower limb (principal); A49.02 Methicillin resistant Staphylococcus aureus infection, unspecified site; Z48.00 Encounter for change or removal of nonsurgical wound dressing | CPT/HCPCS: G0463 ==

== ENCOUNTER → 2018-12-04 08:07 | Outpatient (CLI) | payer MEDICARE, SELFPAY ==
[2018-12-04 08:07] VITALS: BP 126/75; PULSE 75; RESP 17; TEMP 36.8; O2SAT 96
[2018-12-04 08:30] VITALS: BP 123/67; PULSE 80; RESP 17; TEMP 36.7; O2SAT 97; BMI 39.2
== END ==
PROVIDERS: PCP Family Medicine; Visit Provider Emergency Medicine
DX: L03.115 Cellulitis of right lower limb (principal); Z48.00 Encounter for change or removal of nonsurgical wound dressing; A49.02 Methicillin resistant Staphylococcus aureus infection, unspecified site
CPT/HCPCS: G0463

== ENCOUNTER 2018-12-05 08:10 | Outpatient (CLI) | payer MEDICARE, SELFPAY ==
[2018-12-05 08:31] VITALS: BP 128/58; PULSE 71; RESP 16; TEMP 36.6; O2SAT 95; BMI 38.9
[2018-12-05 08:38] VITALS: BP 131/58; PULSE 66; RESP 16; TEMP 36.6; O2SAT 98
== END 2018-12-05 08:40 | disposition home or self-care (01) ==
LOC: INF 08:11
PROVIDERS: PCP Emergency Medicine; Visit Provider Emergency Medicine
DX: L03.115 Cellulitis of right lower limb (principal); A49.02 Methicillin resistant Staphylococcus aureus infection, unspecified site; Z48.00 Encounter for change or removal of nonsurgical wound dressing
CPT/HCPCS: G0463

== ENCOUNTER 2018-12-06 08:15 | Outpatient (CLI) | payer MEDICARE, SELFPAY | END 2018-12-06 08:25 | disposition home or self-care (01) | LOC: INF 08:15 | PROVIDERS: Visit Provider Emergency Medicine | DX: L03.115 Cellulitis of right lower limb (principal); A49.02 Methicillin resistant Staphylococcus aureus infection, unspecified site; Z48.00 Encounter for change or removal of nonsurgical wound dressing | CPT/HCPCS: G0463 ==

== ENCOUNTER 2018-12-07 08:10 | Outpatient (CLI) | payer MEDICARE, SELFPAY | END 2018-12-07 08:40 | disposition home or self-care (01) | LOC: INF 08:22 | PROVIDERS: Visit Provider Emergency Medicine | DX: L03.115 Cellulitis of right lower limb (principal); A49.02 Methicillin resistant Staphylococcus aureus infection, unspecified site; Z48.00 Encounter for change or removal of nonsurgical wound dressing | CPT/HCPCS: G0463 ==

== ENCOUNTER 2018-12-08 08:10 | Outpatient (CLI) | payer MEDICARE, SELFPAY | END 2018-12-08 08:25 | disposition home or self-care (01) | LOC: INF 08:24 | PROVIDERS: Visit Provider Emergency Medicine | DX: L03.115 Cellulitis of right lower limb (principal); A49.02 Methicillin resistant Staphylococcus aureus infection, unspecified site; Z48.00 Encounter for change or removal of nonsurgical wound dressing | CPT/HCPCS: G0463 ==

== ENCOUNTER → 2018-12-21 16:43 | Outpatient (CLI) | payer MEDICARE, SELFPAY ==
[2018-12-24 07:13] LABS: C difficile Toxins AB, EIA Positive (Negative)
== END ==
PROVIDERS: Visit Provider Emergency Medicine
DX: A04.72 Enterocolitis due to Clostridium difficile, not specified as recurrent (principal)
CPT/HCPCS: 87324

== ENCOUNTER → 2019-01-11 10:07 | Outpatient (CLI) | payer MEDICARE, SELFPAY ==
[2019-01-11 10:10] LABS: Adenovirus F 40/41, stool Not Detected (NotDetected); Astrovirus Not Detected (NotDetected); Campylobacter Not Detected (NotDetected); Cryptosporidium Not Detected (NotDetected); Cyclospora Cayetanesis Not Detected (NotDetected); Entamoeba histolytica Not Detected (NotDetected); Enteroaggregative E coli Not Detected (NotDetected); Enteropathogenic E coli Not Detected (NotDetected); Enterotoxigenic E coli Not Detected (NotDetected); Giardia lamblia Not Detected (NotDetected); Norovirus Not Detected (NotDetected); Plesimonas Shigalloides, PCR Not Detected (NotDetected); Rotavirus A Not Detected (NotDetected); Salmonella, PCR Not Detected (NotDetected); Sapovirus Not Detected (NotDetected); Shiga-like toxin E coli Not Detected (NotDetected); Shigella Enterovasive E coli Not Detected (NotDetected); Vibrio Cholerae Not Detected (NotDetected); Vibrio, PCR Not Detected (NotDetected); Yersinia Entercolitica, PCR Not Detected (NotDetected)
[2019-01-11 18:44] LABS: Clostridium Difficile A/B, PCR Detected (NotDetected)
== END ==
PROVIDERS: Visit Provider Emergency Medicine
DX: R19.7 Diarrhea, unspecified (principal); A04.72 Enterocolitis due to Clostridium difficile, not specified as recurrent; Z86.19 Personal history of other infectious and parasitic diseases
CPT/HCPCS: 87506

== ENCOUNTER → 2019-02-15 14:07 | Outpatient (CLI) | payer MEDICARE, SELFPAY ==
[2019-02-15 14:11] LABS: Adenovirus F 40/41, stool Not Detected (NotDetected); Astrovirus Not Detected (NotDetected); Campylobacter Not Detected (NotDetected); Cryptosporidium Not Detected (NotDetected); Cyclospora Cayetanesis Not Detected (NotDetected); Entamoeba histolytica Not Detected (NotDetected); Enteroaggregative E coli Not Detected (NotDetected); Enteropathogenic E coli Not Detected (NotDetected); Enterotoxigenic E coli Not Detected (NotDetected); Giardia lamblia Not Detected (NotDetected); Norovirus Not Detected (NotDetected); Plesimonas Shigalloides, PCR Not Detected (NotDetected); Rotavirus A Not Detected (NotDetected); Salmonella, PCR Not Detected (NotDetected); Sapovirus Not Detected (NotDetected); Shiga-like toxin E coli Not Detected (NotDetected); Shigella Enterovasive E coli Not Detected (NotDetected); Vibrio Cholerae Not Detected (NotDetected); Vibrio, PCR Not Detected (NotDetected); Yersinia Entercolitica, PCR Not Detected (NotDetected)
[2019-02-15 23:21] LABS: Clostridium Difficile A/B, PCR Detected (NotDetected)
== END ==
PROVIDERS: Visit Provider Emergency Medicine
DX: R19.7 Diarrhea, unspecified (principal); A04.72 Enterocolitis due to Clostridium difficile, not specified as recurrent
CPT/HCPCS: 87506

== ENCOUNTER 2020-05-12 15:37 | Emergency (ER) | payer MEDICARE, SELFPAY ==
[2020-05-12 16:00] VITALS: BP 142/87; PULSE 87; RESP 19; TEMP 36.9; O2SAT 98; BMI 41.0
--- NOTE | 2020-05-12 16:20 | HMH.EDUTC ---
[facility] [place] Clinical Impression: Abscess Disposition: Home, Self-Care Condition on Discharge: Good Additional Instructions: follow up on thursday with pcp for cx results keep area clean and dry if area worsens return or be seen in ed Prescriptions: Mupirocin [Bactroban 2% Ointment 22gm tube] 1 applicatio TP BID 7 Days #1 tube Prescription Printed cephALEXin [Keflex 500mg Cap] 500 mg PO BID 10 Days #20 cap Prescription Printed Referrals: Yuly Burciaga MD [Primary Care Provider] - Time of Disposition: 16:25 Medical Decision Making - Rodolfo Inquiry Pt receiving controlled substance: No Vital Signs: 05/12/20 16:00 Temperature 98.4 F Temperature Source Oral Pulse Rate [Right Brachial] 87 Respiratory Rate 19 Blood Pressure [Right Arm] 142/87 H Blood Pressure Mean [Right Arm] 105 Blood Pressure Source [Right Arm] Automatic Cuff Blood Pressure Position [Right Arm] Sitting 02 Sat by Pulse Oximetry 98 Oxygen Delivery Method Room Air [facility] [place] HPI - General Chief complaint: Urgent [facility] Stated complaint: left leg redness, swollen Time Seen by Provider: 05/12/20 16:20 Mode of Arrival: Ambulatory Source of Information: Patient Limitations: No Limitations Description of Symptoms (Recalled from Triage Doc. by RN): PATIENT C/O SORE TO LEFT ANKLE X 2 DAYS HEENT Symptoms (Recalled from RN notes): No Resp Symptoms (Recalled from RN notes): No Skin Symptoms (Recalled from RN notes): Yes MS Symptoms (Recalled from RN notes): No Functional Status (Recalled from RN notes): WNL - History of Present Illness Provider Complaint: 84 yr old male presents for a open wound on left lower leg for 1 month. Pt states he called pcp and they wanted a wound cx obtained - Related Data Home Medications Medication Instructions Recorded Confirmed coenzyme Q10 100 mg capsule 100 mg PO DAILY 08/10/18 03/02/19 glucosamine-chondroitin 250 mg-200 2 tab PO QPC 08/10/18 03/02/19 mg tablet vitamin B complex 1 tab PO DAILY 08/10/18 03/02/19 Aspirin [Aspirin 81mg chewable 81 mg PO DAILY 10/20/18 03/02/19 tab] Multivitamin [Daily Multiple 1 each PO DAILY 10/20/18 03/02/19 Vitamin] Rosuvastatin Calcium 10 mg PO HS 10/20/18 03/02/19 ramipriL [Ramipril] 5 mg PO DAILY 10/20/18 03/02/19 Furosemide [Furosemide 40MG tAB*] 40 mg PO DAILY 10/27/18 03/02/19 lactobacillus combination no.9 4 4,000 mmu cells PO DAILY 03/02/19 03/02/19 billion cell capsule metoprolol tartrate 50 mg tablet 50 mg PO DAILY 90 Days #90 tab 03/02/19 03/02/19 vancomycin 125 mg capsule 125 mg PO QID 03/02/19 03/02/19 Previous Rx's Medication Instructions Recorded Mupirocin [Bactroban 2% Ointment 1 applicatio TP BID 7 Days #1 tube 05/12/20 22gm tube] cephALEXin [Keflex 500mg Cap] 500 mg PO BID 10 Days #20 cap 05/12/20 Allergies Allergy/AdvReac Type Severity Reaction Status Date / Time clindamycin Allergy Verified 03/02/19 11:51 metronidazole [From Flagyl] Allergy Verified 03/02/19 11:51 - Worker's Comp Is this a Worker's Comp case?: No [facility] History - Hepatitis A Screen Drug use history?: No High risk sexual behaviors?: No History of sexually transmitted infection?: No Currently employed?: No Childcare worker?: No Do you have indoor plumbing?: Yes Do you have electricity?: Yes Attestation statement:: This patient has been screened for Hepatitis A risk factors. I have reviewed the patient's past medical history: Yes Medical History: Reports:: Chronic Obstructive Pulmonary Disease (COPD), Coronary Artery Disease, Hyperlipidemia, Hypertension, MRSA, Myocardial Infarction, Renal Disease Denies:: Asthma, Cancer, Diabetes Mellitus Type 1, Diabetes Mellitus Type 2, Internal Pacemaker Other Surgeries: Yes: CABG, Cardiac Surgery, Other. 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
[2020-05-12 16:28] VITALS: BP 142/87; PULSE 87; RESP 19; TEMP 36.9; O2SAT 98
== END 2020-05-12 16:30 | disposition home or self-care (01) ==
PROVIDERS: Emergency Provider Nurse Practitioner Family; PCP Family Medicine
DX: L02.416 Cutaneous abscess of left lower limb (principal); J44.9 Chronic obstructive pulmonary disease, unspecified; I25.10 Atherosclerotic heart disease of native coronary artery without angina pectoris; I25.2 Old myocardial infarction; Z79.899 Other long term (current) drug therapy
CPT/HCPCS: G0463; 87070; 87077; 87186; 87205; 99201

== ENCOUNTER → 2020-11-20 12:46 | Outpatient (CLI) | payer MEDICARE, SELFPAY ==
--- NOTE | 2020-11-20 12:58 | XR_ITS ---
PROCEDURE: XR FOOT RT MIN 3V CLINICAL INDICATION: ULCER OF RT FOOT Pain COMPARISON: No exams were available for comparison FINDINGS: No acute fracture or dislocation is evident. There are mild osteoarthritic changes at the 1st MTP joint, talonavicular joint, navicular cuneiform joint, and tarsal metatarsal junction with bony hypertrophy dorsally at the tarsal metatarsal junction. There is pes planus. There is a mildly prominent calcaneal spur with some calcification along the plantar fascia posteriorly. There is diffuse vascular calcification. At the tuft of the distal phalanx of the great toe medially there is a small cortical defect. This could be seen with osteomyelitis in the appropriate clinical setting. Bandage artifact is present along the medial aspect of the 2nd DIP joint. No erosive changes evident at this region. IMPRESSION: Bony defect involving the tuft of the distal phalanx medially of the great toe. This could be acute or chronic. Osteomyelitis could cause this finding either acute or chronic. Please correlate with clinical parameters. No evidence of osteomyelitis at the 2nd toe. Osteoarthritic changes Dictated by: Ken Matos MD 11/20/2020 14:41 Ken Matos MD in [place] 11/20/2020 14:41
== END ==
PROVIDERS: PCP Family Medicine; Visit Provider Nurse Practitioner
DX: L97.519 Non-pressure chronic ulcer of other part of right foot with unspecified severity (principal)
CPT/HCPCS: 73630

== ENCOUNTER → 2020-12-07 11:09 | Outpatient (CLI) | payer MEDICARE, SELFPAY ==
--- NOTE | 2020-12-07 11:10 | US_ITS ---
APPROVED REPORT Exam Type: Lower Extremity Segmental Pressures Accounting Reconciliation Clerk: Gisela Henson RVT Indications Non-healing Ulcer: Right Edema WOUND 2ND TOE RIGHT FOOT,DECREASED PULSES Risk Factors Hypertension CAD Obesity Cardiac Disease Pressures/Indices Right Indices Left Indices Brachial 160.00 mmHg Brachial 149.00 mmHg Low Thigh 158.00 mmHg 0.99 Low Thigh 155.00 mmHg 0.97 Calf 255.00 mmHg 0.00 Calf 255.00 mmHg 0.00 Ankle(PT) 255.00 mmHg 0.00 Ankle(PT) 229.00 mmHg 1.43 Ankle(DP) 150.00 mmHg 0.94 Ankle(DP) 255.00 mmHg 0.00 Digit 157.00 mmHg 0.98 Digit 125.00 mmHg 0.78 Findings RT MACK:0.94 LT MACK:1.43 RT TBI:0.98 LT TBI:0.78 DAMPANED WAVEFORMS ON THE LEFT DAMPANED PULSES BILATERAL Conclusion RT MACK:0.94 LT MACK:1.43 RT TBI:0.98 LT TBI:0.78 DAMPANED WAVEFORMS ON THE LEFT DAMPANED PULSES BILATERAL Electronically signed by : Yandel Mason MD 12/07/2020 15:23:48
== END ==
PROVIDERS: PCP Family Medicine; Visit Provider Podiatrist
DX: R09.89 Other specified symptoms and signs involving the circulatory and respiratory systems (principal); L97.511 Non-pressure chronic ulcer of other part of right foot limited to breakdown of skin
CPT/HCPCS: 93923

== ENCOUNTER → 2020-12-28 09:57 | Outpatient (CLI) | payer MEDICARE, SELFPAY ==
[2020-12-28 10:29] LABS: Basophils # 0.1 K/mm3 (0-0.2); Basophils % 1.3 % (0.1-2.0); Eosinophils # 0.4 K/mm3 (0.0-0.4); Eosinophils % 4.9 % (0.1-12.0); Hematocrit 45.4 % (42.0-52.0); Hemoglobin 14.9 g/dL (14.1-18.0); Lymphocytes # 1.9 K/mm3 (0.7-4.5); Lymphocytes % 26.8 % (10-50); Mean Corpuscular HGB Conc 32.9 g/dL (31.8-35.4); Mean Corpuscular Hemoglobin 31.5 pg (27.0-31.2); Mean Corpuscular Volume 95.8 fl (80-94); Mean Platelet Volume 7.5 fl (7.4-10.4); Monocytes # 0.5 K/mm3 (0.1-1.0); Monocytes % 6.6 % (1.7-9.3); Neutrophils # 4.3 K/mm3 (1.8-7.8); Neutrophils % 60.4 % (37.0-80.0); Platelet Count 227 K/mm3 (142-424); Red Blood Count 4.74 M/mm3 (4.60-6.20); Red Cell Distribution Width 13.9 % (11.5-17.5); White Blood Count 7.1 K/mm3 (4.8-10.8)
[2020-12-28 10:32] LABS: Hemoglobin A1C 5.8 % (4.0-6.0)
[2020-12-28 13:27] LABS: Chloride 106 mmol/L (98-107); Potassium 5.9 mmoL/L (3.5-5.1); Sodium 141 mmol/L (136-145)
[2020-12-28 13:30] LABS: Alanine Aminotransferase 18 U/L (12-78); Albumin Level 4.6 g/dl (3.5-5.0); Alkaline Phosphatase 86 U/L (38-126); Anion Gap 13.9 mEq/L (5-15); Aspartate Amino Transferase 29 U/L (17-59); Bilirubin,Direct 0.5 mg/dl (0.0-0.4); Bilirubin,Indirect 0.2 mg/dL (0.0-0.9); Bilirubin,Total 0.7 mg/dl (0.2-1.3); Bilirubin,Unconjugated 0.3 mg/dL (0.0-1.1); Blood Urea Nitrogen 30 mg/dl (9-20); Calcium 9.3 mg/dl (8.4-10.2); Carbon Dioxide 27 mmol/L (22.0-30.0); Cholesterol 135 mg/dl (140-200); Estimated Glomerular Filt Rate 44 ml/min (>60); GFR (African American) 54 ML/MIN (>60); Glucose 107 mg/dl (74-100); Total Protein,Serum 7.7 g/dl (6.3-8.2); Triglycerides 133 mg/dl (30-150); VLDL Cholesterol 27 mg/dL (0-40)
[2020-12-28 13:31] LABS: Chol/HDL Ratio 2.8 (1-3.5); HDL Cholesterol 49 mg/dl (40-60)
[2020-12-28 13:42] LABS: Direct LDL Cholesterol 55.44 mg/dL (100-129)
== END ==
PROVIDERS: Visit Provider Physician Assistant
DX: E78.2 Mixed hyperlipidemia (principal); I10 Essential (primary) hypertension; I25.10 Atherosclerotic heart disease of native coronary artery without angina pectoris; L97.929 Non-pressure chronic ulcer of unspecified part of left lower leg with unspecified severity; R06.00 Dyspnea, unspecified; R68.89 Other general symptoms and signs; Z95.1 Presence of aortocoronary bypass graft; N18.30 Chronic kidney disease, stage 3 unspecified; Z79.899 Other long term (current) drug therapy
CPT/HCPCS: 36415; 80048; 80061; 80076; 83036; 85025

== ENCOUNTER → 2021-01-08 12:44 | Outpatient (CLI) | payer MEDICARE, SELFPAY ==
[2021-01-08 13:10] LABS: Basophils % 0.4 % (0.1-2.0); Eosinophils # 0.2 K/mm3 (0.0-0.4); Eosinophils % 3.2 % (0.1-12.0); Hematocrit 43.3 % (42.0-52.0); Hemoglobin 14.9 g/dL (14.1-18.0); Lymphocytes # 1.6 K/mm3 (0.7-4.5); Lymphocytes % 24.8 % (10-50); Mean Corpuscular HGB Conc 34.3 g/dL (31.8-35.4); Mean Corpuscular Hemoglobin 31.9 pg (27.0-31.2); Mean Platelet Volume 8.2 fl (7.4-10.4); Monocytes # 0.4 K/mm3 (0.1-1.0); Neutrophils # 4.2 K/mm3 (1.8-7.8); Neutrophils % 65.6 % (37.0-80.0); Platelet Count 201 K/mm3 (142-424); Red Blood Count 4.66 M/mm3 (4.60-6.20); Red Cell Distribution Width 13.8 % (11.5-17.5); White Blood Count 6.4 K/mm3 (4.8-10.8)
[2021-01-08 13:29] LABS: Chloride 104 mmol/L (98-107); Potassium 5.3 mmoL/L (3.5-5.1); Sodium 141 mmol/L (136-145)
[2021-01-08 13:32] LABS: Alanine Aminotransferase 17 U/L (12-78); Albumin Level 4.8 g/dl (3.5-5.0); Albumin/Globulin Ratio 1.5 (1.1-1.8); Alkaline Phosphatase 74 U/L (38-126); Anion Gap 14.3 mEq/L (5-15); Aspartate Amino Transferase 27 U/L (17-59); Bilirubin,Total 0.8 mg/dl (0.2-1.3); Blood Urea Nitrogen 34 mg/dl (9-20); Calcium 9.8 mg/dl (8.4-10.2); Carbon Dioxide 28 mmol/L (22.0-30.0); Estimated Glomerular Filt Rate 44 ml/min (>60); GFR (African American) 54 ML/MIN (>60); Globulin 3.1 g/dL (1.3-3.2); Glucose 105 mg/dl (74-100); Total Protein,Serum 7.9 g/dl (6.3-8.2)
[2021-01-08 14:13] LABS: Erythrocyte Sedimentation Rate 89 mm/hr (0-20)
== END ==
PROVIDERS: Visit Provider Nurse Practitioner
DX: L97.511 Non-pressure chronic ulcer of other part of right foot limited to breakdown of skin (principal)
CPT/HCPCS: 36415; 80053; 85025; 85651; 86140

== ENCOUNTER 2021-01-16 09:36 | Observation (INO) | payer MEDICARE, SELFPAY ==
[2021-01-16] VITALS (9 sets, daily range): BP systolic 105–147; BP diastolic 42–79; PULSE 66–90; RESP 16–20; TEMP 36.4–36.8; O2SAT 94–98; BMI 40.0; BMI 39.2
--- NOTE | 2021-01-16 09:51 | CT_ITS ---
PROCEDURE: CT ABDOMEN PELVIS W CON CLINICAL INDICATION: pain Abdominal pain with bloody stool COMPARISON: CT ABDPELW CT abdomen pelvis w con from 10/27/2018 TECHNIQUE: IV Contrast: 75ML Isovue 370 Oral Contrast None Axial images obtained with sagittal and coronal reformats. All CT scans at the facility use one or more dose reduction, viz: automated exposure control, ma/kV adjustment per patient size (including targeted exams where dose is matched to indication, i.e. head), or iterative reconstruction technique. FINDINGS: LOWER THORAX: Minimal atelectatic or fibrotic changes are present in the lung bases. Aortic valve and coronary artery calcification is noted. There has been a prior CABG. ABDOMEN & PELVIS: Unremarkable liver. There is moderate gallbladder distension with a prominent gallstone noted somewhat similar to the previous exam. The spleen and adrenal glands have an unremarkable appearance. Unremarkable appearing pancreas. 5 mm nonobstructing stone is present in the mid polar region of the left kidney. There are small bilateral renal cysts. A 4.7 cm exophytic cyst projects off the medial aspect of the right kidney not significantly changed. Prostate is enlarged at 6.7 cm. Multiple pelvic phleboliths are present. There is colonic diverticulosis but no evidence of diverticulitis. There has been a prior right hemicolectomy. No evidence of small-bowel obstruction. No colonic wall thickening There is multilevel degenerative disc disease in the lumbar spine. Sclerotic focus involves the ilium on the right inferiorly unchanged. Subchondral cyst is present in the right femoral head unchanged. IMPRESSION: Distended gallbladder with cholelithiasis similar to the previous exam Colonic diverticulosis. No evidence of diverticulitis or thickened colon. Prior right hemicolectomy. Other nonacute findings as detailed above overall not significantly changed Dictated by: Ken Matos MD 01/16/2021 11:23 Ken Matos MD in [place] 01/16/2021 11:23
[2021-01-16 10:06] LABS: Basophils % 0.6 % (0.1-2.0); Eosinophils # 0.2 K/mm3 (0.0-0.4); Hematocrit 44.1 % (42.0-52.0); Hemoglobin 14.7 g/dL (14.1-18.0); Lymphocytes % 27.9 % (10-50); Mean Corpuscular HGB Conc 33.4 g/dL (31.8-35.4); Mean Corpuscular Hemoglobin 31.6 pg (27.0-31.2); Mean Corpuscular Volume 94.6 fl (80-94); Mean Platelet Volume 7.7 fl (7.4-10.4); Monocytes # 0.4 K/mm3 (0.1-1.0); Monocytes % 5.3 % (1.7-9.3); Neutrophils # 4.6 K/mm3 (1.8-7.8); Neutrophils % 63.2 % (37.0-80.0); Platelet Count 235 K/mm3 (142-424); Red Blood Count 4.66 M/mm3 (4.60-6.20); White Blood Count 7.2 K/mm3 (4.8-10.8)
[2021-01-16 10:09] LABS: Chloride 108 mmol/L (98-107); Potassium 4.3 mmoL/L (3.5-5.1); Sodium 141 mmol/L (136-145)
--- NOTE | 2021-01-16 10:10 | HMH.EDGENADL ---
ED Disposition Clinical Impression: Diverticulosis, Near syncope GI bleed Qualifiers: GI bleed type/associated pathology: unspecified gastrointestinal hemorrhage type Qualified Code(s): K92.2 - Gastrointestinal hemorrhage, unspecified Hemorrhoid Qualifiers: Hemorrhoid type: unspecified Qualified Code(s): K64.9 - Unspecified hemorrhoids Disposition: Admitted as Observation Condition on Discharge: Fair Instructions: DI for Gastrointestinal Bleeding Referrals: Yuly Burciaga MD [Primary Care Provider] - Time of Disposition: 12:35 - Critical Care Critical Care Time: No Attestation: On 01/16/21, the high probability of a clinically significant, sudden or life threatening deterioration of the following system(s) required my full and direct attention, intervention and personal management. The time I documented below is in addition to time spent performing reported procedures but includes the following listed in this critical care notation. Medical Decision Making - Medical Records Medical records reviewed: Yes: I reviewed the patient's medical records. - Rodolfo Inquiry Pt receiving controlled substance: No Vital Signs: 01/16/21 09:36 Temperature 97.7 F Temperature Source Oral Pulse Rate [Left Radial] 90 Respiratory Rate 20 Blood Pressure [Right Arm] 147/73 H Blood Pressure Mean [Right Arm] 97 Blood Pressure Source [Right Arm] Automatic Cuff Blood Pressure Position [Right Arm] Sitting 02 Sat by Pulse Oximetry 96 Oxygen Delivery Method Room Air - Lab Data Lab Results 01/16/21 09:52: WBC 7.2, RBC 4.66, Hgb 14.7, Hct 44.1, MCV 94.6 H, MCH 31.6 H, MCHC 33.4, RDW 14.0, Plt Count 235, MPV 7.7, Neut % (Auto) 63.2, Lymph % (Auto) 27.9, Twiggs % (Auto) 5.3, Eos % (Auto) 3.0, Baso % (Auto) 0.6, Neut # (Auto) 4.6, Lymph # (Auto) 2.0, Twiggs # (Auto) 0.4, Eos # (Auto) 0.2, Baso # (Auto) 0.0 01/16/21 09:52: Sodium 141, Potassium 4.3, Chloride 108 H, Carbon Dioxide 23, Anion Gap 14.3, BUN 30 H, Creatinine 1.60 H, Estimated Creat Clear 58, Estimated GFR 41 L, Est GFR ( Amer) 50 L, Glucose 116 H, Calcium 9.2, Total Bilirubin 1.0, AST 33, ALT 22, Alkaline Phosphatase 76, Troponin I < 0.01, Total Protein 7.8, Albumin 4.6, Globulin 3.2, Albumin/Globulin Ratio 1.4 01/16/21 10:41: Blood Type O Negative, Antibody Screen Positive 01/16/21 10:46: Stool Occult Blood Negative Result diagrams: 01/16/21 09:52 01/16/21 09:52 Orders (Tests/Meds): ED MEDICATIONS Generic Name Dose Route Start Last Admin Trade Name Freq PRN Reason Stop Dose Admin Sodium Chloride 1,000 mls @ 150 mls/hr 01/16/21 11:00 Sod Chlor 0.9% 1000ml Bag IV 02/15/21 10:59 .Q6H40M [facility] Pantoprazole Sodium 40 mg 01/16/21 10:15 01/16/21 11:00 Pantoprazole 40mg Vial IV 02/15/21 10:14 40 mg BID [facility] Administration Discontinued Medications Generic Name Dose Route Start Last Admin Trade Name Freq PRN Reason Stop Dose Admin Sodium Chloride 1,000 mls @ 999 mls/hr 01/16/21 10:00 01/16/21 11:01 Sod Chlor 0.9% 1000ml Bag IV 01/16/21 11:00 999 mls/hr .Q1H1M [facility] Administration Iopamidol 75 ml 01/16/21 11:06 01/16/21 11:07 Iopamidol-370 (76%);100ml Bottle IV 01/16/21 11:07 75 ml ONCE ONE Administration Sodium Chloride 10 ml 01/16/21 11:06 01/16/21 11:07 Sodium Chloride 0.9% 10ml Syr (Rad Only) IV 01/16/21 11:07 10 ml ONCE ONE Administration ORDERS Category Date Time Status Antibody Identification Stat BBK 01/16/21 10:41 Received Rapid PCR Covid and Flu A/B Stat Lab 01/16/21 12:25 Received Troponin I Q3H Lab 01/16/21 13:00 Ordered Troponin I Q3H Lab 01/16/21 16:00 Ordered - CT Data CT Scan: Abdomen Time Received: 11:[address] Reviewed: Yes: I have reviewed the patient's CT results, I have viewed the radiologist's interpretation Findings Narrative: IMPRESSION: Distended gallbladder with cholelithiasis similar to the previous exam Colonic diverticulosis. No evidence of div
[2021-01-16 10:11] LABS: Alanine Aminotransferase 22 U/L (12-78); Aspartate Amino Transferase 33 U/L (17-59); Blood Urea Nitrogen 30 mg/dl (9-20); Creatinine Clearance Estimated 58 mL/min (50-200); Estimated Glomerular Filt Rate 41 ml/min (>60); GFR (African American) 50 ML/MIN (>60)
[2021-01-16 10:12] LABS: Albumin Level 4.6 g/dl (3.5-5.0); Albumin/Globulin Ratio 1.4 (1.1-1.8); Alkaline Phosphatase 76 U/L (38-126); Anion Gap 14.3 mEq/L (5-15); Calcium 9.2 mg/dl (8.4-10.2); Carbon Dioxide 23 mmol/L (22.0-30.0); Globulin 3.2 g/dL (1.3-3.2); Glucose 116 mg/dl (74-100); Total Protein,Serum 7.8 g/dl (6.3-8.2)
[2021-01-16 10:28] LABS: Troponin I < 0.01 ng/ml (0.00-0.034)
[2021-01-16 10:53] LABS: Occult Blood,Stool Negative (Negative)
--- NOTE | 2021-01-16 11:33 | PC.NURSE ---
ZARINA RODRIGUES speaking with Dr. Burciaga
--- NOTE | 2021-01-16 12:01 | PC.NURSE ---
waiting health outcomes liaison back from Dr. Child, he in a procedure at this time.
--- NOTE | 2021-01-16 12:16 | PC.NURSE ---
ZARINA RODRIGUES speaking with Dr. Child
[2021-01-16 12:33] LABS: Coronavirus 19, PCR Not Detected (NotDetected); Influenza A, PCR Not Detected (NotDetected); Influenza B, PCR Not Detected (NotDetected)
--- NOTE | 2021-01-16 12:33 | PC.NURSE ---
notified care management of admission, spoke with marques
--- NOTE | 2021-01-16 13:09 | PC.NURSE ---
Report given to Mary, waiting on pt bed to be cleaned, will call back with updates
--- NOTE | 2021-01-16 13:10 | HMH.HP ---
*Admission Date: 01/16/21 *Chief complaint: black stools; near syncope *History of present illness: Mr. Hughes is an 85-year-old male patient with a history of coronary artery disease, hypertension, hyperlipidemia, who presented to the emergency room this a.m. after experiencing 3 large black stools. He states with the last stool he had a near syncopal episode and thus called his daughter. He describes constipation requiring laxatives about every 3 days. He has had no previous black stools, hematochezia, and denies nausea and vomiting. He has been eating as usual. With a near syncopal episode his daughter brought him to the emergency room for evaluation. With evaluation in the emergency room he was given Protonix IV and IV fluids at 150 after receiving a liter bolus. CT scan revealed distended gallbladder with cholelithiasis similar to the previous exam, colonic diverticulosis with no evidence of diverticulitis and prior right hemocolectomy. CBC showed a white blood cell count of 7200 with a hemoglobin of 14.7 and hematocrit of 44.1. Blood chemistries reveal sodium of 141 and normal potassium of 4.3. Renal function with a BUN of 30 and creatinine of 1.6. He did have stool for occult blood which was negative. Do the combination of black stools and near syncopal episode he was admitted for further evaluation and treatment with a surgical consult. [facility] History Medical History: Reports:: Chronic Obstructive Pulmonary Disease (COPD), Coronary Artery Disease, Gastroesophageal Reflux Disease(GERD), Hyperlipidemia, Hypertension, MRSA, Myocardial Infarction, Renal Disease Denies:: Asthma, Cancer, Diabetes Mellitus Type 1, Diabetes Mellitus Type 2, Internal Pacemaker *Have you ever received a pneumonia vaccine?: No *Have you received a flu vaccine this season?: No Other Surgeries: Yes: CABG, Cardiac Surgery, Other. No: Pacemaker Amputation: No Fractures: No - *Social History Smoking Status: Never smoker # Packs/Day (cigarettes): 0 #Yrs smoked (if former smoker): 0 Alcohol Intake: never Alcohol Intake Frequency:: other Substance Use Type: denies use *Occupational Status:: other Housing: house Household Members: none *Travel in the last 8 weeks: None Family Hx:: Cancer, Coronary Artery Disease Review of Systems - Constitutional Denies fever(s), Denies lack of energy - Eyes Denies change in vision - ENT Denies ear pain, Denies nasal congestion, Denies sore throat - *Cardiovascular Reports leg swelling (improved), Denies chest pain, Denies shortness of breath - *Respiratory Denies chest congestion, Denies cough, Denies shortness of breath - *Gastrointestinal Reports belching, Reports bloating, Reports constipation, Reports excessive passing of gas, Reports black, tarry stools, Denies abdominal pain, Denies loose stools, Denies heartburn, Denies heartburn, Denies vomiting blood, Denies bright, red blood in stools, Denies loose stools, Denies nausea, Denies vomiting - *Genitourinary Reports difficulty urinating (small amounts) - *Musculoskeletal Reports abnormal walking (uses walker or cane) - *Neurologic Denies dizziness, Denies headache(s), Denies numbness Meds Home Medications Medication Instructions Recorded Confirmed Type coenzyme Q10 100 mg capsule 100 mg PO DAILY 08/10/18 01/16/21 History glucosamine-chondroitin 250 mg-200 1 tab PO BID 08/10/18 01/16/21 History mg tablet vitamin B complex 1 tab PO DAILY 08/10/18 01/16/21 History Aspirin [Aspirin 81mg chewable 81 mg PO DAILY 10/20/18 01/16/21 History tab] Multivitamin [Daily Multiple 1 tab PO DAILY 10/20/18 01/16/21 History Vitamin] Rosuvastatin Calcium 10 mg PO HS 10/20/18 01/16/21 History ramipriL [Ramipril] 5 mg PO DAILY 10/20/18 01/16/21 History Furosemide [Furosemide 40MG tAB*] 20 mg PO DAILY 10/27/18 01/16/21 History lactobacillus combination no.9 4 4,000 mmu cells PO DAILY 03/02/19 01/16/21 History billion cell capsule metoprolol tartrate 5
--- NOTE | 2021-01-16 13:10 | HMH.GSCON ---
*Admission Date: 01/16/21 *Reason for consult:: GI bleeding *History of present illness: Patient is an 85-year-old male with history of COPD, coronary artery disease with previous myocardial infarction and CABG, hyperlipidemia, chronic renal insufficiency, previous right hemicolectomy who presented to the emergency department with symptoms of GI blood loss after 3 large black stools which he describes as black blood . He had awoke this morning with abdominal cramping. He then had a large amount of dark stool followed by additional bowel movements. He had near syncope with lightheadedness and some diaphoresis with a sensation that he may pass out . He has no previous similar symptoms. He has had some constipation and has required some occasional laxative. 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 He has not had a subsequent colonoscopy. Evaluation in the emergency department revealed him to be hemodynamically normal. He did have reasonable hemoglobin hematocrit. BUN and creatinine is 30 and 1.6 which appears to be his recent baseline. He underwent CT scan. Due to the combination of black stool and near syncope episode patient was admitted for inpatient management and treatment with surgical consultation. Review of Systems - Review of Systems Review of systems:: pertinent systems reviewed and negative unless documented below - *Neurologic Denies dizziness, Denies headache(s), Denies numbness [facility] History I have reviewed the patient's past medical history: Yes Medical History: Reports:: Chronic Obstructive Pulmonary Disease (COPD), Coronary Artery Disease, Hyperlipidemia, Hypertension, MRSA, Myocardial Infarction, Renal Disease Denies:: Asthma, Cancer, Diabetes Mellitus Type 1, Diabetes Mellitus Type 2, Internal Pacemaker *Have you ever received a pneumonia vaccine?: No *Have you received a flu vaccine this season?: No Other Surgeries: Yes: CABG, Cardiac Surgery, Other. No: Pacemaker Amputation: No Fractures: No - *Social History Smoking Status: Never smoker # Packs/Day (cigarettes): 0 #Yrs smoked (if former smoker): 0 Alcohol Intake: never Alcohol Intake Frequency:: other Substance Use Type: denies use *Occupational Status:: other Housing: house Household Members: none *Travel in the last 8 weeks: None Family Hx:: Cancer, Coronary Artery Disease Meds Home Medications Medication Instructions Recorded Confirmed Type coenzyme Q10 100 mg capsule 100 mg PO DAILY 08/10/18 01/16/21 History glucosamine-chondroitin 250 mg-200 2 tab PO QPC 08/10/18 01/16/21 History mg tablet vitamin B complex 1 tab PO DAILY 08/10/18 01/16/21 History Aspirin [Aspirin 81mg chewable 81 mg PO DAILY 10/20/18 01/16/21 History tab] Multivitamin [Daily Multiple 1 each PO DAILY 10/20/18 01/16/21 History Vitamin] Rosuvastatin Calcium 10 mg PO HS 10/20/18 01/16/21 History ramipriL [Ramipril] 5 mg PO DAILY 10/20/18 01/16/21 History Furosemide [Furosemide 40MG tAB*] 40 mg PO DAILY 10/27/18 01/16/21 History lactobacillus combination no.9 4 4,000 mmu cells PO DAILY 03/02/19 01/16/21 History billion cell capsule metoprolol tartrate 50 mg tablet 50 mg PO DAILY 90 Days #90 tab 03/02/19 01/16/21 History Allergies Allergy/AdvReac Type Severity Reaction Status Date / Time clindamycin Allergy Verified 01/08/21 12:01 metronidazole [From Flagyl] Allergy Verified 01/08/21 12:01 Exam Vital signs and Labs for Last 24 Hours: Temp Pulse Resp BP Pulse Ox 97.7 F 79 20 133/79 98 01/16/21 09:36 01/16/21 12:47 01/16/21 12:47 01/16/21 12:47 01/16/21 12:47 Laboratory Results - last 24 hr 01/16/21 09:52: WBC 7.2, RBC 4.66, Hgb 14.7, Hct 44.1, MCV 94.6 H, MCH 31.6 H, MCHC 33.4, RDW 14.0, Plt Count 235, MPV 7.7, Neut % (Auto) 63.2, Lymph % (Auto) 27.9, [place] % (Auto) 5.3, Eos % (Auto) 3.0, Baso % (Auto) 0.6, Neut # (Auto) 4.6, Lymph # (Auto) 2.0, [place] # (Auto) 0.4, Eos # (Auto) 0.2, Baso # (Auto) 0.0 12/21
--- NOTE | 2021-01-16 13:26 | PC.NURSE ---
dr. zabala at BS
--- NOTE | 2021-01-16 15:00 | HMH.PHAINT ---
MEDICATION RECONCILIATION COMPLETED USING EXTERNAL PHARMACY FILL HISTORY AND LIST FROM MD OFFICE.
--- NOTE | 2021-01-16 18:16 | PC.WOUNDNOTE ---
Addendum entered by Ky Judge RN 01/16/21 18:16: 2nd r toe open area,red and dry, cleansed with betadine and applied loose dsg. Original Note:
--- NOTE | 2021-01-16 18:28 | PC.NURSE ---
Pt alert and oriented and able to make needs known. RR even and unlabored. VSS. CB at side. NAD. Pleasent and cooperative with care. Lungs cta, denies pain, dsg applied to R 2 toe after cleaning with betadine. BS x 4, s1,s2. Home meds locked in drawer.
--- NOTE | 2021-01-16 19:44 | PC.NURSE ---
Dr. Burciaga here rounding and made aware of pt's request for home meds. Some were ordered per aug.
[2021-01-17] VITALS (16 sets, daily range): BP systolic 120–169; BP diastolic 62–110; PULSE 62–106; RESP 17–20; TEMP 36.3–36.6; O2SAT 92–99; BMI 39.7
--- NOTE | 2021-01-17 04:51 | PC.NURSE ---
No acute changes noted. Pt has not voiced any complaints this shift. Denies any pain. Has not had any stools this shift. Medication administered per aug. VSS. No other concerns. Will continue to monitor
[2021-01-17 05:49] LABS: Basophils % 0.6 % (0.1-2.0); Eosinophils # 0.2 K/mm3 (0.0-0.4); Eosinophils % 3.8 % (0.1-12.0); Hematocrit 34.4 % (42.0-52.0); Lymphocytes # 1.8 K/mm3 (0.7-4.5); Lymphocytes % 29.5 % (10-50); Mean Corpuscular HGB Conc 33.1 g/dL (31.8-35.4); Mean Corpuscular Hemoglobin 32.2 pg (27.0-31.2); Mean Corpuscular Volume 97.5 fl (80-94); Mean Platelet Volume 7.7 fl (7.4-10.4); Monocytes # 0.4 K/mm3 (0.1-1.0); Monocytes % 6.7 % (1.7-9.3); Neutrophils # 3.5 K/mm3 (1.8-7.8); Neutrophils % 59.4 % (37.0-80.0); Platelet Count 168 K/mm3 (142-424); Red Blood Count 3.53 M/mm3 (4.60-6.20); Red Cell Distribution Width 13.9 % (11.5-17.5)
[2021-01-17 05:55] LABS: Hemoglobin 11.4 g/dL (14.1-18.0)
[2021-01-17 05:56] LABS: Blood Urea Nitrogen 28 mg/dl (9-20); Carbon Dioxide 22 mmol/L (22.0-30.0); Chloride 112 mmol/L (98-107); Creatinine Clearance Estimated 70 mL/min (50-200); Estimated Glomerular Filt Rate 52 ml/min (>60); GFR (African American) 63 ML/MIN (>60); Glucose 87 mg/dl (74-100); Sodium 141 mmol/L (136-145)
[2021-01-17 07:01] LABS: Calcium 7.9 mg/dl (8.4-10.2)
--- NOTE | 2021-01-17 07:19 | HMH.PHAVTE ---
[facility] Pharmacy VTE Monitoring - Patient Demographics Admission date: 01/16/21 Report Date: 01/17/21 Time: 07:19 Allergies/Adverse Reactions: Patient Allergies clindamycin Allergy (Verified 01/08/21 12:01) metronidazole [From Flagyl] Allergy (Verified 01/08/21 12:01) Height: 1.75 m Weight: 121.744 kg Patient Problems: Current Active Problems Constipation (Chronic) Near syncope (Acute) Hemorrhoids (Chronic) GI bleed (Acute) Diverticulosis (Chronic) CAD (coronary artery disease) (Chronic) - VTE Risk Labs: VTE Related Lab Results Hgb 11.4 g/dL (14.1-18.0) L D 01/17/21 05:42 Hct 34.4 % (42.0-52.0) L 01/17/21 05:42 Plt Count 168 K/mm3 (142-424) D 01/17/21 05:42 BUN 28 mg/dl (9-20) H 01/17/21 05:42 Creatinine 1.30 mg/dl (0.66-1.25) H 01/17/21 05:42 Estimated Creat Clear 70 mL/min (50-200) 01/17/21 05:42 Clinical Trial Participant: No - Prophylaxis VTE Prophylaxis Ordered?: Yes Types of VTE Prophylaxis: TEDS Knee High
--- NOTE | 2021-01-17 07:24 | HMH.GSPN ---
Subjective Patient reports: no new complaints Progress Note: A&P (1) Near syncope Status: Acute (2) GI bleed Status: Acute Assessment and plan: Esophagogastroduodenoscopy this AM Discussion with regard to colonoscopy will be ongoing. Timing of colonoscopy will be pending results of EGD, as well as, overall clinical progress. Hopefully, this can be accomplished in the outpatient setting. (3) Diverticulosis Status: Chronic (4) Hemorrhoids Status: Chronic (5) Constipation Status: Chronic (6) CAD (coronary artery disease) Status: Chronic Exam Vital signs and Labs for Last 24 Hours: Temp Pulse Resp BP Pulse Ox 97.9 F 68 17 136/72 96 01/17/21 04:00 01/17/21 04:00 01/17/21 04:00 01/17/21 04:00 01/17/21 04:00 Laboratory Results - last 24 hr 01/16/21 09:52: WBC 7.2, RBC 4.66, Hgb 14.7, Hct 44.1, MCV 94.6 H, MCH 31.6 H, MCHC 33.4, RDW 14.0, Plt Count 235, MPV 7.7, Neut % (Auto) 63.2, Lymph % (Auto) 27.9, [place] % (Auto) 5.3, Eos % (Auto) 3.0, Baso % (Auto) 0.6, Neut # (Auto) 4.6, Lymph # (Auto) 2.0, [place] # (Auto) 0.4, Eos # (Auto) 0.2, Baso # (Auto) 0.0 01/16/21 09:52: Sodium 141, Potassium 4.3, Chloride 108 H, Carbon Dioxide 23, Anion Gap 14.3, BUN 30 H, Creatinine 1.60 H, Estimated Creat Clear 58, Estimated GFR 41 L, Est GFR ( Amer) 50 L, Glucose 116 H, Calcium 9.2, Total Bilirubin 1.0, AST 33, ALT 22, Alkaline Phosphatase 76, Troponin I < 0.01, Total Protein 7.8, Albumin 4.6, Globulin 3.2, Albumin/Globulin Ratio 1.4 01/16/21 10:41: Blood Type O Negative, Antibody Screen Positive 01/16/21 10:46: Stool Occult Blood Negative 01/16/21 12:25: SARS-CoV-2 (PCR) Not detected, Influenza A Untype (PCR) Not detected, Influenza Type B (PCR) Not detected 01/17/21 05:42: WBC 6.0, RBC 3.53 L, Hgb 11.4 L D, Hct 34.4 L, MCV 97.5 H, MCH 32.2 H, MCHC 33.1, RDW 13.9, Plt Count 168 D, MPV 7.7, Neut % (Auto) 59.4, Lymph % (Auto) 29.5, [place] % (Auto) 6.7, Eos % (Auto) 3.8, Baso % (Auto) 0.6, Neut # (Auto) 3.5, Lymph # (Auto) 1.8, [place] # (Auto) 0.4, Eos # (Auto) 0.2, Baso # (Auto) 0.0 01/17/21 05:42: Sodium 141, Potassium 4.0, Chloride 112 H, Carbon Dioxide 22, Anion Gap 11.0, BUN 28 H, Creatinine 1.30 H, Estimated Creat Clear 70, Estimated GFR 52 L, Est GFR ( Amer) 63 D, Glucose 87 D, Calcium 7.9 L D I & O for Last 24 hours: Intake & Output 01/14/21 01/15/21 01/16/21 01/17/21 11:59 11:59 11:59 11:59 Intake Total 2145 / 2145 Output Total 250 / 250 Balance 1895 / 1895 Weight 271 lb 268 lb 6.4 oz - Constitutional no acute distress - *Routine Respiratory Exam Absent: respiratory distress - *Routine Cardiovascular Exam Absent: tachycardia - *Routine Abdominal Exam Present: soft
--- NOTE | 2021-01-17 09:10 | HMH.SCOPE ---
- Procedure: Date: 01/17/21 Patient Date of :: 1935 Procedure Performed:: Esophagogastroduodenoscopy with biopsy Indications:: Possible gastrointestinal hemorrhage Performing Provider:: Ronan Echols MD Referring Provider:: Dr. Burciaga Sedation:: Monitored anesthesia care Procedure:: After informed consent was obtained the patient was taken to the endoscopy suite. Sedation ensued after the patient was transferred to the left lateral decubitus position. Pulse, blood pressure, and oxygen saturation were monitored throughout the procedure. The endoscope was advanced beyond the duodenal bulb. Retroflexion within the gastric lumen was accomplished. The gastroscope was carefully removed and the patient was transferred to recovery in stable condition. Please see findings and specimens below for detail. Findings:: Gastroesophageal junction at 40 cm Small sliding hiatal hernia Mild Schatzki ring Mild scattered gastritis and focal duodenitis No sign of active or recent hemorrhage No obvious ulceration Specimens:: Antral biopsy Prepyloric biopsy Recommendations:: Follow-up pathology Complications:: No immediate Estimated blood obtained (mL): 1
--- NOTE | 2021-01-17 09:16 | HMH.ANESCL ---
[facility] Anesthesia Checklist - Structural Data Admitted From: Inpatient Planned Operative Procedure/s: egd Consent for Planned Operative Procedure(s) Verified: Yes - Airway Assessment C-Spine Mobility Assessed: Yes TMJ Mobility Assessed: Yes Dentition: Edentulous - Neurological Assessment Level of Consciousness: Awake, Alert, Appropriate - Anesthesia Plan Anesthesia Risk discussed: Yes Anesthesia Plan: Verified ASA Class: III Anesthesia Type: MAC [facility] History I have reviewed the patient's past medical history: Yes Medical History: Reports:: Cancer (hx colon ca), Chronic Obstructive Pulmonary Disease (COPD), Coronary Artery Disease, Gastroesophageal Reflux Disease(GERD), Hyperlipidemia, Hypertension, MRSA (resolved), Myocardial Infarction, Renal Disease Denies:: Asthma, Diabetes Mellitus Type 1, Diabetes Mellitus Type 2, Internal Pacemaker *Have you ever received a pneumonia vaccine?: Yes *Have you received a flu vaccine this season?: Yes Anesthesia experience/problems:: none Other Surgeries: Yes: CABG, Cardiac Surgery, Other. No: Pacemaker Amputation: No Fractures: No - *Social History Smoking Status: Never smoker # Packs/Day (cigarettes): 0 #Yrs smoked (if former smoker): 0 Alcohol Intake: never Alcohol Intake Frequency:: other Substance Use Type: denies use *Occupational Status:: retired Housing: house Household Members: none *Travel in the last 8 weeks: None Family Hx:: Cancer, Coronary Artery Disease
--- NOTE | 2021-01-17 14:23 | SUR.PHASEII ---
1144-spoke with Xu RN med/surg nurse about patient being on clears and having a bowel prep for tomorrows consult with [facility] and possible Colonoscopy. Contacted [facility] office and spoke with Kush about consult. SHe will have Krystin call me at [phone]
--- NOTE | 2021-01-17 14:50 | HMH.ACPN2 ---
Internal Medicine - PN: Subj *Date: 01/17/21 *Time: 14:50 Interval history: He is quite stable and postop from his EGD. The EGD was basically unrevealing as far as etiology of any bleeding. Apparently he will be receiving colonoscopy tomorrow morning from Dr. Sosa. This afternoon he is alert and oriented sitting up in a chair and quoting [place]! Exam Vital signs and Labs for Last 24 Hours: Temp Pulse Resp BP Pulse Ox 97.6 F 93 H 20 142/78 H 98 01/17/21 13:45 01/17/21 13:45 01/17/21 13:45 01/17/21 13:45 01/17/21 13:45 Laboratory Results - last 24 hr 01/17/21 05:42: WBC 6.0, RBC 3.53 L, Hgb 11.4 L D, Hct 34.4 L, MCV 97.5 H, MCH 32.2 H, MCHC 33.1, RDW 13.9, Plt Count 168 D, MPV 7.7, Neut % (Auto) 59.4, Lymph % (Auto) 29.5, [place] % (Auto) 6.7, Eos % (Auto) 3.8, Baso % (Auto) 0.6, Neut # (Auto) 3.5, Lymph # (Auto) 1.8, [place] # (Auto) 0.4, Eos # (Auto) 0.2, Baso # (Auto) 0.0 01/17/21 05:42: Sodium 141, Potassium 4.0, Chloride 112 H, Carbon Dioxide 22, Anion Gap 11.0, BUN 28 H, Creatinine 1.30 H, Estimated Creat Clear 70, Estimated GFR 52 L, Est GFR ( Amer) 63 D, Glucose 87 D, Calcium 7.9 L D I & O for Last 24 hours: Intake & Output 01/15/21 01/16/21 01/17/21 01/18/21 11:59 11:59 11:59 11:59 Intake Total 2145 / 2145 480 / 480 Output Total 250 / 250 Balance 1895 / 1895 480 / 480 Weight 271 lb 268 lb 6.4 oz - Constitutional no acute distress - *Routine HEENT Exam Head: Present: normocephalic Eye: Present: PERRL ENT: Present: mucous membranes moist - *Routine Neck Exam Present: supple. Absent: JVD - Routine Chest/Breast/Axilla Exam Chest wall: Absent: tenderness - *Routine Respiratory Exam Present: CTA bilaterally, rales (Only a few bibasilar and fibrotic) - *Routine Cardiovascular Exam Present: RRR - *Routine Abdominal Exam Present: soft. Absent: tenderness - *Routine Extremities Exam Present: edema (1+) - *Routine Skin Exam Present: intact, warm. Absent: rash - *Routine Neurological Exam Present: alert, oriented X3 Assessment and Plan (1) Near syncope Status: Acute Category: Medical Code(s): R55 - Syncope and collapse (2) GI bleed Status: Acute Qualifiers: GI bleed type/associated pathology: unspecified gastrointestinal hemorrhage type Qualified Code(s): K92.2 - Gastrointestinal hemorrhage, unspecified Category: Medical Code(s): K92.2 - Gastrointestinal hemorrhage, unspecified (3) Diverticulosis Status: Chronic Category: Medical Code(s): K57.90 - Diverticulosis of intestine, part unspecified, without perforation or abscess without bleeding (4) Hemorrhoids Status: Chronic Qualifiers: Hemorrhoid type: unspecified Qualified Code(s): K64.9 - Unspecified hemorrhoids Category: Medical Code(s): K64.9 - Unspecified hemorrhoids (5) Constipation Status: Chronic Category: Medical Code(s): K59.00 - Constipation, unspecified (6) CAD (coronary artery disease) Status: Chronic Qualifiers: Coronary Disease-Associated Artery/Lesion type: [place] artery [place] vs. transplanted heart: [place] heart Associated angina: without angina Qualified Code(s): I25.10 - Atherosclerotic heart disease of [place] coronary artery without angina pectoris Category: Medical Code(s): I25.10 - Atherosclerotic heart disease of [place] coronary artery without angina pectoris - Assessment and plan all Dx Assessment and Plan for all problems:: Colonoscopy per Dr. Sosa in the morning.
--- NOTE | 2021-01-17 17:56 | PC.NURSE ---
Pt has done well this shift. Pt is currently in the middle of completing bowel prep for colonoscopy this shift. No other acute changes or complaints at this time.
[2021-01-18] VITALS (18 sets, daily range): BP systolic 79–170; BP diastolic 44–80; PULSE 52–70; RESP 17–18; TEMP 36.4–36.9; O2SAT 92–100; BMI 39.7
--- NOTE | 2021-01-18 08:49 | HMH.ACPN2 ---
Internal Medicine - PN: Subj *Date: 01/18/21 *Time: 08:49 Interval history: Patient states he is feeling well this morning. He has been up and down all night after his colon prep. He is scheduled for colonoscopy this morning with Dr. Sosa. He denies any abdominal pain and states his stool no longer is dark. Exam Vital signs and Labs for Last 24 Hours: Temp Pulse Resp BP Pulse Ox 97.6 F 70 17 138/74 96 01/18/21 04:00 01/18/21 04:00 01/18/21 04:00 01/18/21 04:00 01/18/21 04:00 I & O for Last 24 hours: Intake & Output 01/15/21 01/16/21 01/17/21 01/18/21 11:59 11:59 11:59 11:59 Intake Total 2145 / 2145 2750 / 2750 Output Total 250 / 250 650 / 650 Balance 1895 / 1895 2100 / 2100 Weight 271 lb 268 lb 6.4 oz 268 lb 6.322 oz - Constitutional no acute distress - *Routine Respiratory Exam Present: CTA bilaterally - *Routine Cardiovascular Exam Present: RRR - *Routine Abdominal Exam Present: soft, normoactive bowel sounds. Absent: tenderness - *Routine Extremities Exam Absent: cyanosis, clubbing, edema - *Routine Skin Exam Present: warm. Absent: rash - *Routine Neurological Exam Present: alert, oriented X3 Assessment and Plan (1) Near syncope Status: Acute Category: Medical Code(s): R55 - Syncope and collapse (2) GI bleed Status: Acute Qualifiers: GI bleed type/associated pathology: unspecified gastrointestinal hemorrhage type Qualified Code(s): K92.2 - Gastrointestinal hemorrhage, unspecified Category: Medical Code(s): K92.2 - Gastrointestinal hemorrhage, unspecified (3) Diverticulosis Status: Chronic Category: Medical Code(s): K57.90 - Diverticulosis of intestine, part unspecified, without perforation or abscess without bleeding (4) Hemorrhoids Status: Chronic Qualifiers: Hemorrhoid type: unspecified Qualified Code(s): K64.9 - Unspecified hemorrhoids Category: Medical Code(s): K64.9 - Unspecified hemorrhoids (5) Constipation Status: Chronic Category: Medical Code(s): K59.00 - Constipation, unspecified (6) CAD (coronary artery disease) Status: Chronic Qualifiers: Coronary Disease-Associated Artery/Lesion type: [place] artery [place] vs. transplanted heart: [place] heart Associated angina: without angina Qualified Code(s): I25.10 - Atherosclerotic heart disease of [place] coronary artery without angina pectoris Category: Medical Code(s): I25.10 - Atherosclerotic heart disease of [place] coronary artery without angina pectoris - Assessment and plan all Dx Assessment and Plan for all problems:: Patient to have colonoscopy with Dr. Sosa today.
--- NOTE | 2021-01-18 14:27 | P.PCN_ITS ---
[facility] Procedure Note Procedure Note:: Colonoscopy Procedure Report: Colonoscopy with cold snare polypectomy Endoscopist: Darrick Sosa II, MD Referring physician: Xadner Burciaga MD Date of Procedure: January 18, 2021 Equipment: Olympus 190 variable stiffness pediatric colonoscope Sedation: MAC sedation Indication: Mr. Danielosn is an 85-year-old gentleman who is here for diagnostic colonoscopy secondary to melanotic stools and some change in bowel habits. The patient is Hemoccult negative. On admission, he did have a CAT scan of the abdomen showing colonic diverticulosis and prior right hemicolectomy. His hemoglobin 14.7 and hematocrit 44.1 were normal. The patient has had constipation over the last several months. He has had some minor weight loss. 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 He has not had a colonoscopy since that time. He reports no abdominal pain or family history of colon cancer. He did have an upper endoscopy (Dr. Ronan Echols M.D.) yesterday showing some gastritis, duodenitis and small hiatal hernia. Procedure: Prior to the procedure, a history and physical exam was performed, and patient's medications and allergies were reviewed. The risks, benefits and alternatives of the sedation and procedure were discussed with the patient. All questions were answered and informed consent was obtained. The patient was brought to the procedure room. Patient identification and proposed procedure were verified by the physician and the nurse. The patient was placed in a left lateral decubitus position and the scope was passed under direct vision. Throughout the procedure, the patient's blood pressure, pulse, and oxygen saturations were monitored continuously. The colonoscopy was accomplished without difficulty. The patient tolerated the procedure well. Findings: On digital rectal examination there was normal rectal tone. There were prolapsed hemorrhoids with large hemorrhoidal tags. The prostate was firm, to 3+ but without nodules. The colonoscope was introduced through the anal canal to the rectum and advanced to the ileocolonic anastomosis. The scope was advanced a short distance into the ileum which appeared grossly normal. The scope was then withdrawn into the colon. The anastomosis was normal. The remaining ascending and transverse colon and mucosa were grossly normal. There were 3 colon polyps in the descending colon (3, 5 and 6 mm) which were removed via cold snare polypectomy. There were scattered extensive diverticuli throughout the descending and sigmoid colon (LEFT colon). The rectum itself was normal. Upon retroflexion within the rectum there were grade 2 internal hemorrhoids. The preparation was excellent throughout with [place] Preparation Score of 9. The cecal time was 12 minutes. Impression: 1. Colonic polyps x3 2. Extensive left-sided diverticulosis 3. Prior right hemicolectomy with normal ileocolonic anastomosis 4. Grade 2 internal hemorrhoids Plan: The patient should not require any further preventive/surveillance colonoscopy. I do feel that there may have been some bleeding because there was some flecks of old blood in the colon. If the patient does have a decline in hemoglobin and/or is Hemoccult positive, I would consider PillCam. The patient was heme- negative on this admission.
[2021-01-19 03:14] VITALS: BP 113/56; PULSE 57; RESP 18; TEMP 36.9; O2SAT 92
[2021-01-19 05:00] VITALS: BMI 38.5
--- NOTE | 2021-01-19 06:15 | PC.NURSE ---
pt AxOx4, has rested well t/o shift, no complaints of pain, N/V/D, has remained on room air t/o shift, ambulating to BR independently, up to chair for beginning of shift
[2021-01-19 08:00] VITALS: BP 144/64; PULSE 74; RESP 18; TEMP 36.7; O2SAT 98
--- NOTE | 2021-01-19 09:07 | HMH.ACPN2 ---
Internal Medicine - PN: Subj *Date: 01/19/21 *Time: 09:07 Interval history: Patient feels better today, no complaints , anxious to go home. Exam Vital signs and Labs for Last 24 Hours: Temp Pulse Resp BP Pulse Ox 98.4 F 57 L 18 113/56 L 92 L 01/19/21 03:14 01/19/21 03:14 01/19/21 03:14 01/19/21 03:14 01/19/21 03:14 Vital Signs - 24 hr 01/18/21 14:30 01/18/21 14:40 01/18/21 14:50 Temperature 97.7 F Pulse Rate [Left Radial] 65 58 L 61 Respiratory Rate 18 18 18 Blood Pressure [Right Arm] 92/44 L 79/44 L 104/60 L 02 Sat by Pulse Oximetry 92 L 93 L 94 L 01/18/21 15:00 01/18/21 15:22 01/18/21 15:35 Temperature 98.4 F Pulse Rate [Left Radial] 55 L 53 L 52 L Respiratory Rate 18 18 17 Blood Pressure [Right Arm] 108/56 L 115/75 154/73 H 02 Sat by Pulse Oximetry 94 L 96 100 01/18/21 15:50 01/18/21 16:00 01/18/21 16:05 Temperature 98.3 F 98.2 F 98.1 F Pulse Rate [Left Radial] 52 L 58 L 55 L Respiratory Rate 18 18 Blood Pressure [Right Arm] 164/63 H 164/63 H 170/67 H 02 Sat by Pulse Oximetry 100 100 01/18/21 16:11 01/18/21 16:20 01/18/21 16:35 Temperature 97.9 F 97.8 F Pulse Rate [Left Radial] 53 L 61 Respiratory Rate 18 18 Blood Pressure [Right Arm] 170/67 H 140/65 159/76 H 02 Sat by Pulse Oximetry 100 97 01/18/21 17:05 01/18/21 17:35 01/18/21 18:35 Temperature 98.2 F 98.1 F 98.3 F Pulse Rate [Left Radial] 62 63 62 Respiratory Rate 18 18 17 Blood Pressure [Right Arm] 145/47 H 145/57 H 144/60 H 02 Sat by Pulse Oximetry 98 98 98 01/18/21 19:35 01/19/21 03:14 Temperature 97.7 F 98.4 F Pulse Rate [Left Radial] 60 57 L Respiratory Rate 18 18 Blood Pressure [Right Arm] 134/52 L 113/56 L 02 Sat by Pulse Oximetry 98 92 L I & O for Last 24 hours: Intake & Output 01/16/21 01/17/21 01/18/21 01/19/21 23:59 23:59 23:59 23:59 Intake Total 640 / 640 1984 2630 / 2630 Output Total 250 / 650 650 / 650 Balance 640 / 640 1735 / 1335 1979 Weight 265 lb 6 oz 268 lb 6.4 oz 268 lb 6.322 oz 260 lb 1 oz - Constitutional no acute distress - *Routine HEENT Exam Head: Present: normocephalic Eye: Present: EOMI, PERRL ENT: Present: mucous membranes moist - *Routine Neck Exam Present: supple. Absent: lymphadenopathy - *Routine Respiratory Exam Present: CTA bilaterally - *Routine Cardiovascular Exam Present: RRR - *Routine Abdominal Exam Present: soft, normoactive bowel sounds. Absent: tenderness - *Routine Extremities Exam Present: edema. Absent: cyanosis, clubbing - *Routine Skin Exam Present: warm. Absent: rash - *Routine Neurological Exam Present: alert, oriented X3 Assessment and Plan (1) Near syncope Status: Acute Category: Medical Code(s): R55 - Syncope and collapse (2) GI bleed Status: Acute Qualifiers: GI bleed type/associated pathology: unspecified gastrointestinal hemorrhage type Qualified Code(s): K92.2 - Gastrointestinal hemorrhage, unspecified Category: Medical Code(s): K92.2 - Gastrointestinal hemorrhage, unspecified (3) Diverticulosis Status: Chronic Category: Medical Code(s): K57.90 - Diverticulosis of intestine, part unspecified, without perforation or abscess without bleeding (4) Hemorrhoids Status: Chronic Qualifiers: Hemorrhoid type: unspecified Qualified Code(s): K64.9 - Unspecified hemorrhoids Category: Medical Code(s): K64.9 - Unspecified hemorrhoids (5) Constipation Status: Chronic Category: Medical Code(s): K59.00 - Constipation, unspecified (6) CAD (coronary artery disease) Status: Chronic Qualifiers: Coronary Disease-Associated Artery/Lesion type: [place] artery [place] vs. transplanted heart: [place] heart Associated angina: without angina Qualified Code(s): I25.10 - Atherosclerotic heart disease of [place] coronary artery without angina pectoris Category: Medical Code(s): I25.10 - Atherosclerotic heart disease of [place] coronary artery
[2021-01-19 09:45] VITALS: O2SAT 98
--- NOTE | 2021-01-19 09:52 | HMH.GSPN ---
Subjective Narrative: Patient without complaints. No clinical bleeding. Feels well. Progress Note: A&P (1) Near syncope Status: Acute (2) GI bleed Status: Acute (3) Diverticulosis Status: Chronic (4) Hemorrhoids Status: Chronic (5) Constipation Status: Chronic (6) CAD (coronary artery disease) Status: Chronic Assessment and Plan for All Diagnoses:: EGD and colonoscopy noted. Primary service planning discharge Exam Vital signs and Labs for Last 24 Hours: Temp Pulse Resp BP Pulse Ox 98.0 F 74 18 144/64 H 98 01/19/21 08:00 01/19/21 08:00 01/19/21 08:00 01/19/21 08:00 01/19/21 08:00 I & O for Last 24 hours: Intake & Output 01/16/21 01/17/21 01/18/21 01/19/21 11:59 11:59 11:59 11:59 Intake Total 2145 / 2145 2750 / 2750 480 / 480 Output Total 250 / 250 650 / 650 Balance 1895 / 1895 2100 / 2100 480 / 480 Weight 271 lb 268 lb 6.4 oz 268 lb 6.322 oz 260 lb 1 oz - Constitutional no acute distress
[2021-01-19 12:00] VITALS: BP 145/58; PULSE 60; RESP 18; TEMP 36.6; O2SAT 99
--- NOTE | 2021-01-22 22:33 | HMH.DCSUM ---
General - General Admission date:: 01/16/21 Discharge date: 01/19/21 HPI HPI: Mr. Danielson is an 85-year-old male patient with a history of coronary artery disease, hypertension, hyperlipidemia, who presented to the emergency room this a.m. after experiencing 3 large black stools. He states with the last stool he had a near syncopal episode and thus called his daughter. He describes constipation requiring laxatives about every 3 days. He has had no previous black stools, hematochezia, and denies nausea and vomiting. He has been eating as usual. With a near syncopal episode his daughter brought him to the emergency room for evaluation. With evaluation in the emergency room he was given Protonix IV and IV fluids at 150 after receiving a liter bolus. CT scan revealed distended gallbladder with cholelithiasis similar to the previous exam, colonic diverticulosis with no evidence of diverticulitis and prior right hemocolectomy. CBC showed a white blood cell count of 7200 with a hemoglobin of 14.7 and hematocrit of 44.1. Blood chemistries reveal sodium of 141 and normal potassium of 4.3. Renal function with a BUN of 30 and creatinine of 1.6. He did have stool for occult blood which was negative. Do the combination of black stools and near syncopal episode he was admitted for further evaluation and treatment with a surgical consult. Hospital Course Hospital Course: The patient was admitted and surgery was consulted. He was seen in consultation by Dr. Child who felt he would need an upper endoscopy to evaluate for the upper GI source of bleeding. The patient did have an EGD performed by Dr. Echols and he found a small sliding hiatal hernia, a mild Schatzki ring, mild scattered gastritis with focal duodenitis, but no obvious sign of active or recent hemorrhage. Biopsies were taken. The patient tolerated the procedure well but it was felt he would need a colonoscopy by Dr. Sosa as his EGD showed no sign of bleeding. He had no abdominal pain and the dark stools resolved with the colonoscopy prep. Dr. Sosa performed a colonoscopy on 01/18/2021 and found 3 colon polyps, extensive left-sided diverticulosis, a prior right hemicolectomy with normal ileocolonic anastomosis, and grade 2 internal hemorrhoids. He did feel the patient had had some bleeding because there were some flecks of old blood in the colon. He felt if he had a decline in his hemoglobin or hematocrit or a positive Hemoccult, he would consider a PillCam. The patient felt much better and was anxious to be discharged home. His H&H remained stable and it was felt he could be discharged with close monitoring of his H&H. Objective Vital signs: Temp Pulse Resp BP Pulse Ox 97.9 F 60 18 145/58 H 99 01/19/21 12:00 01/19/21 12:00 01/19/21 12:00 01/19/21 12:00 01/19/21 12:00 Narrative: - Constitutional no acute distress Comments: conversant - *Routine HEENT Exam Head: Present: normocephalic, atraumatic Eye: Present: PERRL. Absent: conjunctival icterus, scleral injection ENT: Present: mucous membranes moist, oropharynx clear - *Routine Neck Exam Present: supple. Absent: carotid bruit, lymphadenopathy, thyromegaly - *Routine Respiratory Exam Present: CTA bilaterally (A&P) - *Routine Cardiovascular Exam Present: RRR (70/min) - *Routine Abdominal Exam Present: soft, normoactive bowel sounds. Absent: tenderness, distended, guarding - *Routine Rectal Exam Rectal:: deferred - *Routine Genitalia Exam Genitalia:: deferred - *Routine Extremities Exam Present: edema, pulses intact. Absent: calf tenderness - *Routine Neurological Exam Present: alert, oriented X3, moving all extremities DS: Diagnosis - Discharge Diagnosis (1) Near syncope Status: Acute (2) GI bleed Status: Acute (3) Diverticulosis Status: Chronic (4) Hemorrhoids Status: Chronic (5) Constipation Status: Chronic (6) CAD (coronary artery di
== END 2021-01-19 12:30 | disposition home or self-care (01) ==
LOC: ER 11:41 → 2ND 12:39
PROVIDERS: Internal Medicine Gastroenterology; Surgery; Admitting Provider Family Medicine; Emergency Provider Emergency Medicine; PCP Family Medicine; Visit Provider Family Medicine
PROC: 0DJ08ZZ Inspection of Upper Intestinal Tract, Via Natural or Artificial Opening Endoscopic (ICD-10-PCS; CPT 43235; principal; 2021-01-17 08:30)
PROC: 0DJD8ZZ Inspection of Lower Intestinal Tract, Via Natural or Artificial Opening Endoscopic (ICD-10-PCS; CPT 45378; principal; 2021-01-18 13:30)
DX: K57.91 Diverticulosis of intestine, part unspecified, without perforation or abscess with bleeding (principal); Z20.822 Contact with and (suspected) exposure to COVID-19; Z79.899 Other long term (current) drug therapy; I25.10 Atherosclerotic heart disease of native coronary artery without angina pectoris; I10 Essential (primary) hypertension; E78.5 Hyperlipidemia, unspecified; K21.9 Gastro-esophageal reflux disease without esophagitis; K44.9 Diaphragmatic hernia without obstruction or gangrene; K22.2 Esophageal obstruction; K29.70 Gastritis, unspecified, without bleeding; K29.80 Duodenitis without bleeding; D12.4 Benign neoplasm of descending colon; D12.5 Benign neoplasm of sigmoid colon; K64.1 Second degree hemorrhoids
CPT/HCPCS: 43239; 45385; G0378; 36415; 74177; 80048; 80053; 82272; 84484; 85025; 86850; 86870; 88305; 96365; 96375; 99284; G0328; Q9967; U0003

== ENCOUNTER → 2021-04-19 17:29 | Outpatient (CLI) | payer MEDICARE, MEDICAID, SELFPAY ==
[2021-04-19 17:49] LABS: Basophils # 0.1 K/mm3 (0-0.2); Basophils % 0.8 % (0.1-2.0); Eosinophils # 0.3 K/mm3 (0.0-0.4); Eosinophils % 3.8 % (0.1-12.0); Lymphocytes # 1.9 K/mm3 (0.7-4.5); Lymphocytes % 27.6 % (10-50); Mean Corpuscular HGB Conc 31.7 g/dL (31.8-35.4); Mean Corpuscular Hemoglobin 33.1 pg (27.0-31.2); Mean Corpuscular Volume 104.4 fl (80-94); Mean Platelet Volume 9.3 fl (7.4-10.4); Monocytes # 0.5 K/mm3 (0.1-1.0); Monocytes % 7.6 % (1.7-9.3); Neutrophils # 4.1 K/mm3 (1.8-7.8); Neutrophils % 60.1 % (37.0-80.0); Platelet Count 234 K/mm3 (142-424); Red Blood Count 4.22 M/mm3 (4.60-6.20); Red Cell Distribution Width 13.3 % (11.5-17.5); White Blood Count 6.9 K/mm3 (4.8-10.8)
[2021-04-19 18:21] LABS: Erythrocyte Sedimentation Rate 34 mm/hr (0-20)
[2021-04-19 18:48] LABS: Alanine Aminotransferase 15 U/L (12-78); Albumin Level 4.1 g/dl (3.5-5.0); Albumin/Globulin Ratio 1.4 (1.1-1.8); Alkaline Phosphatase 62 U/L (38-126); Anion Gap 16.3 mEq/L (5-15); Aspartate Amino Transferase 32 U/L (17-59); Bilirubin,Total 0.3 mg/dl (0.2-1.3); Blood Urea Nitrogen 35 mg/dl (9-20); Calcium 9.3 mg/dl (8.4-10.2); Carbon Dioxide 25 mmol/L (22.0-30.0); Chloride 103 mmol/L (98-107); Estimated Glomerular Filt Rate 52 ml/min (>60); GFR (African American) 63 ML/MIN (>60); Glucose 82 mg/dl (74-100); Potassium 5.3 mmoL/L (3.5-5.1); Sodium 139 mmol/L (136-145); Total Protein,Serum 7.1 g/dl (6.3-8.2)
[2021-04-19 18:53] LABS: C-Reactive Protein 2.8 mg/L (0-4)
== END ==
PROVIDERS: Visit Provider Nurse Practitioner
DX: I25.10 Atherosclerotic heart disease of native coronary artery without angina pectoris (principal); I11.9 Hypertensive heart disease without heart failure
CPT/HCPCS: 80053; 85025; 85651; 86140

== ENCOUNTER → 2021-11-13 09:34 | Outpatient (CLI) | payer MEDICARE, MEDICAID, SELFPAY | PROVIDERS: PCP Family Medicine; Visit Provider Family Medicine | DX: Z20.822 Contact with and (suspected) exposure to COVID-19 (principal) | CPT/HCPCS: C9803; U0003; U0005 ==

== ENCOUNTER → 2022-12-24 15:22 | Outpatient (CLI) | payer MEDICARE, SELFPAY ==
--- NOTE | 2022-12-24 15:29 | XR_ITS ---
FINAL REPORT CLINICAL HISTORY: NECK PAIN. Patient fell back and hit the back of his head on the ground about a month ago. He cant turn from left to right. Patient is ambulatory only with a walker. Best films possible due to poor patient condition. FINDINGS: Cervical spine 6 views: AP, lateral and oblique as well as odontoid views of the cervical spine were obtained. There is moderate to severe diffuse degenerative change present. No acute fracture is identified. There is fusion of multiple levels of the mid and lower cervical spine including multiple facets appear to be fused. Bilateral neural foraminal narrowing is noted on oblique views. There are posterior soft tissue calcifications in the lower cervical region. The overall appearance is worrisome for DISH. IMPRESSION: Multilevel severe degenerative change present, overall appearance worrisome for DISH. No acute fracture is identified. Reviewed, Interpreted and Dictated by Daniel Aguillon III, MD Transcribed by Kiley Curiel Authenticated and [facility]
== END ==
PROVIDERS: PCP Family Medicine; Visit Provider Physician Assistant
DX: M54.2 Cervicalgia (principal)
CPT/HCPCS: 72050

== ENCOUNTER 2023-01-05 01:14 | Emergency (ER) | payer MEDICARE, SELFPAY ==
[2023-01-05] VITALS (9 sets, daily range): BP systolic 95–144; BP diastolic 54–87; PULSE 45–85; RESP 11–28; TEMP 36.6–36.9; O2SAT 96–100; BMI 37.3
--- NOTE | 2023-01-05 01:27 | ECG_ITS ---
APPROVED REPORT Exam: Resting ECG HR:53 bpm ECG Measurements Heart Rate 53 AXES QRSd 99 QRS -46 QT 439 T 15 QTc 422 Conclusion SUPRAVENTRICULAR BRADYCARDIA POSSIBLE ANTERIOR MYOCARDIAL INFARCTION , PROBABLY OLD [30 ms Q WAVE IN V3/V4, OR R < 0.2 mV IN V4] INFERIOR MYOCARDIAL INFARCTION , PROBABLY OLD [40+ ms Q WAVE AND/OR ST/T ABNORMALITY IN II/aVF] ABNORMAL ECG UNCONFIRMED REPORT Electronically signed by : Tej Rivero MD 01/05/2023 07:07:21
--- NOTE | 2023-01-05 01:29 | XR_ITS ---
PROCEDURE INFORMATION: Exam: XR Chest Exam date and time: 01/05/2023 2:13 AM Age: 87 years old Clinical indication: Other: Lower chest and upper abdomen pain; Additional info: Lightheadedness, upper abd/chest pain TECHNIQUE: Imaging protocol: Radiologic exam of the chest. Views: 1 view. COMPARISON: CR CXR1VP XR chest portable 11/04/2018 3:41 AM FINDINGS: Lungs: Lungs are hyperinflated. Clear parenchyma. Pleural spaces: No pleural effusion. No pneumothorax. Heart/Mediastinum: Cardiac silhouette is normal in size for technique. Vasculature: Calcified aortic arch without dilation. Mediastinal surgical clips and vascular markers suggest prior myocardial revascularization. Bones/joints: Age appropriate. IMPRESSION: Hyperinflated but clear lungs. No other acute cardiopulmonary abnormality.
[2023-01-05 01:35] LABS: POC Glucose,Bedside 127 (70-110)
[2023-01-05 01:54] LABS: Chloride 100 mmol/L (98-107); Sodium 134 mmol/L (136-145)
[2023-01-05 01:56] LABS: Lactic Acid 1.6 mmol/L (0.7-2.1)
[2023-01-05 01:57] LABS: Alanine Aminotransferase 48 U/L (12-78); Albumin Level 4.3 g/dl (3.5-5.0); Albumin/Globulin Ratio 1.3 (1.1-1.8); Alkaline Phosphatase 123 U/L (38-126); Aspartate Amino Transferase 96 U/L (17-59); Bilirubin,Total 0.9 mg/dl (0.2-1.3); Calcium 8.9 mg/dl (8.4-10.2); Carbon Dioxide 24 mmol/L (22.0-30.0); Globulin 3.2 g/dL (1.3-3.2); Glucose 127 mg/dl (74-100); Lipase 255 U/L (23-300); Total Protein,Serum 7.5 g/dl (6.3-8.2)
[2023-01-05 01:58] LABS: INR 0.99 (0.9-1.1); Prothrombin Time 10.7 seconds (10.1-12.5)
--- NOTE | 2023-01-05 02:00 | PC.NURSE ---
holding morphine at this time
[2023-01-05 02:02] LABS: Blood Urea Nitrogen 42 mg/dl (9-20)
[2023-01-05 02:04] LABS: Basophils % 0.3 % (0.1-2.0); Eosinophils # 0.2 K/mm3 (0.0-0.4); Eosinophils % 2.7 % (0.1-12.0); Hematocrit 42.6 % (42.0-52.0); Hemoglobin 13.4 g/dL (14.1-18.0); Lymphocytes # 1.8 K/mm3 (0.7-4.5); Mean Corpuscular HGB Conc 31.5 g/dL (31.8-35.4); Mean Corpuscular Volume 98.3 fl (80-94); Mean Platelet Volume 8.2 fl (7.4-10.4); Monocytes # 0.4 K/mm3 (0.1-1.0); Monocytes % 4.4 % (1.7-9.3); Neutrophils # 6.4 K/mm3 (1.8-7.8); Neutrophils % 72.5 % (37.0-80.0); Platelet Count 259 K/mm3 (142-424); Red Blood Count 4.34 M/mm3 (4.60-6.20); Red Cell Distribution Width 13.4 % (11.5-17.5); White Blood Count 8.8 K/mm3 (4.8-10.8)
[2023-01-05 02:09] LABS: Troponin I 0.02 ng/ml (0.00-0.034)
[2023-01-05 02:12] LABS: Creatinine Clearance Estimated 43 mL/min (50-200); Estimated Glomerular Filt Rate 30 ml/min (>60); GFR (African American) 36 ML/MIN (>60)
--- NOTE | 2023-01-05 02:15 | PC.NURSE ---
Rad at bedside
--- NOTE | 2023-01-05 02:15 | HMH.EDGENADL ---
Discharge Plan Disposition Patient Disposition: Home, Self-Care Condition: Good Prescriptions Prescriptions: No Action coenzyme Q10 [Co Q-10] 100 mg capsule 100 mg PO DAILY vitamin B complex [B Complex-Vitamin B12] tablet 1 tab PO DAILY glucosamine-chondroitin [Osteo Bi-Flex] 250-200 mg tablet 1 tab PO BID metoprolol tartrate 50 mg tablet 50 mg PO DAILY 90 Days Qty: 90 Patient Comments: Adult 50 Plus Probiotic 4 billion cell capsule 4,000 mmu cells PO DAILY ramipril 5 MG capsule 5 mg PO DAILY rosuvastatin 10 MG tablet 10 mg PO ONCE multivitamin 1 EACH tablet 1 tab PO DAILY aspirin 81 MG tablet,chewable 81 mg PO DAILY furosemide 40 MG tablet 20 mg PO DAILY Rx Instructions: every other day turmeric 400 mg Capsule 400 mg PO BID Referrals Follow up/Referrals: Yuly Burciaga MD [Primary Care Provider] - See instructions Tristan James MD [Staff Physician] - See instructions Activity Restrictions/Add. Instructions Additional Instructions/Restrictions: You were evaluated in the emergency department today. Please follow-up closely with your primary care provider as well as cardiology. Your heart rate while you are here is low, and this may potentially affect you by causing fatigue and lightheadedness. I recommend further evaluation for this. Please continue taking your bowel regimen at home for your constipation. Return to the emergency department for any new or worsening symptoms. Clinical Impressions Clinical Impression: Bradycardia Constipation Qualifiers: Constipation type: unspecified constipation type Qualified Code(s): K59.00 - Constipation, unspecified Abdominal pain Qualifiers: Abdominal location: epigastric Qualified Code(s): R10.13 - Epigastric pain Instructions Patient Instructions: DI for Acute Abdominal Pain, DI for Bradycardia Discharge ED Provider: Muriel Garay General Adult HPI General Chief complaint: Abdominal Pain Stated complaint: severe stomach pain Time Seen by Provider: 01/05/23 01:16 Mode of Arrival: Family Vehicle Source of Information: Patient Limitations: No Limitations Description of Symptoms (Recalled from ER Triage Doc. by RN): 87 yo male presents with CC mid abd pain and 'near syncope' during triage. States he began having discomfort earlier following his bowel regimen for constipation and no nausea or vomiting however he has 'felt like i'm gonna pass out' twice not including the event in triage. Denies dyspnea. Denies current angina. NIH 0. No focal deficits present. History of Present Illness HPI narrative: This patient is an 87-year-old male who has a history of CAD status post CABG, hypertension, hypertensive heart disease, hyperlipidemia, CKD, GI bleed, diverticulosis, and chronic constipation presenting to the emergency department for evaluation with concern for epigastric/upper abdominal pain. He reports that it started earlier in the afternoon yesterday but acutely worsened when he tried to go to sleep at night. He was unable to get comfortable, so he called his daughter and asked her to bring him in. He states that he also started feeling lightheaded and feel like he was going to pass out while in triage. On medical record review, patient does have a history of abdominal pain with presyncope in the past. He denies any fevers, chills, chest pain, shortness of breath, nausea, vomiting, change in bowel movements, or other concerns. He denies noting any melena or hematochezia. He notes chronic constipation with use of laxatives every 3 days and large bowel movements after use of laxatives. He has a history of colon cancer status post resection many years ago. He takes aspirin but no blood thinners. Daughter reports he recently started PT and she is worried he may have strained a muscle. Related Data Home Medications Medication Instructions Recorded Confirmed coenzyme Q10 1
--- NOTE | 2023-01-05 02:30 | CT_ITS ---
PROCEDURE INFORMATION: Exam: CT Abdomen And Pelvis Without Contrast Exam date and time: 01/05/2023 2:33 AM Age: 87 years old Clinical indication: Abdominal pain; Epigastric; Additional info: Upper abdominal pain, h/o gib and constipation TECHNIQUE: Imaging protocol: Computed tomography of the abdomen and pelvis without contrast. Radiation optimization: All CT scans at this facility use at least one of these dose optimization techniques: automated exposure control; mA and/or kV adjustment per patient size (includes targeted exams where dose is matched to clinical indication); or iterative reconstruction. REPORTING DATA: Count of CT and Cardiac NM exams in prior 12 months: This patient has received 0 known CTs and 0 known cardiac nuclear medicine studies in the 12 months prior to the current study. COMPARISON: CT ABDOMEN PELVIS W CON 01/16/2021 10:54 AM FINDINGS: Lungs: Clear basilar lung parenchyma. Pleural spaces: No pleural fluid. Heart: Normal heart size. Liver: Normal configuration. Homogeneous parenchyma. Gallbladder and bile ducts: Gallbladder is distended and contains at least 1 large lamellated stone. No gallbladder wall inflammatory change. No biliary tree dilation. Pancreas: Normal. No ductal dilation. Spleen: Normal. No splenomegaly. Adrenal glands: Normal configuration. Kidneys and ureters: Moderate renal atrophy. Stable bilateral renal cysts. Tiny left intrarenal stones. Stomach and bowel: There has been right hemicolectomy. Patent ileocolic anastomosis. There is distal colonic diverticulosis without evidence of acute diverticulitis. Appendix: Appendix is surgically absent. Intraperitoneal space: No free air. No significant fluid collection. Vasculature: Arterial calcification noted in the right renal sinus. Mild aortoiliac calcific atherosclerosis. Lymph nodes: No enlarged lymph nodes. Urinary bladder: See Reproductive finding. Reproductive: Enlarged prostate measures 6.6 x 5.7 x 6.4 cm. Prostate indents the base of the urinary bladder. Bones/joints: There is advanced spinal degenerative change with mild spinal stenosis at L4-L5 and L5-S1. Neural foraminal stenosis is demonstrated bilaterally at L4-L5 and L5-S1, and on the right at L2-L3. 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 Advanced bilateral hip arthropathy is noted, more severe on the right than on the left. Several bone islands are stable from prior exam. Soft tissues: Unremarkable. IMPRESSION: 1. No acute intra-abdominal abnormality to explain patient's pain. In particular, there is no evidence of bowel or renal obstruction. There is cholelithiasis but no definite findings of acute cholecystitis. 2. Advanced spinal degenerative change with mild spinal stenosis and bilateral neural foraminal stenosis at L4-L5 and L5-S1.
--- NOTE | 2023-01-05 02:46 | PC.NURSE ---
Pt returned from RAD
[2023-01-05 03:30] LABS: Coronavirus 19, PCR Not Detected (NotDetected); Influenza A, PCR Not Detected (NotDetected); Influenza B, PCR Not Detected (NotDetected); Microscopic, Urine URINE MICROSCOPIC (MICROSCOPIC)
[2023-01-05 03:33] LABS: Appearance,Urine SL CLOUDY (Clear); Bilirubin,Urine Negative (Negative); Blood, Urine Negative (Negative); Color,Urine YELLOW (Yellow); Glucose,Urine (UA) Negative (Negative); Ketones,Urine Negative (Negative); Leukocyte Esterase,Urine 2+ (Negative); Nitrate,Urine Negative (Negative); PH,Urine 5.5 (5.0-8.5); Protein,Urine TRACE (Negative); Specific Gravity, Urine 1.025 (1.005-1.030); Urobilinogen,Urine 0.2 EU/dl (0.2)
[2023-01-05 03:44] LABS: Bacteria,Urine 2+ /lpf; Hyaline Casts,Urine Occasional #/lpf (0); WBC,Urine 50-100 #/hpf (0-3)
[2023-01-05 04:38] LABS: Troponin I 0.02 ng/ml (0.00-0.034)
== END 2023-01-05 05:04 | disposition home or self-care (01) ==
PROVIDERS: Emergency Provider Emergency Medicine; PCP Family Medicine
DX: R10.13 Epigastric pain (principal); K59.00 Constipation, unspecified; I13.10 Hypertensive heart and chronic kidney disease without heart failure, with stage 1 through stage 4 chronic kidney disease, or unspecified chronic kidney disease; I25.10 Atherosclerotic heart disease of native coronary artery without angina pectoris; N18.9 Chronic kidney disease, unspecified; E78.5 Hyperlipidemia, unspecified
CPT/HCPCS: 71045; 74176; 80053; 81001; 82962; 83605; 83690; 84484; 85025; 85610; 86850; 86870; 87086; 87636; 93005; 96365; 96375; 99285; J2405

== ENCOUNTER → 2023-01-06 15:51 | Outpatient (CLI) | payer MEDICARE, SELFPAY | PROVIDERS: PCP Family Medicine; Visit Provider Nurse Practitioner | DX: E78.5 Hyperlipidemia, unspecified (principal); I10 Essential (primary) hypertension; I25.10 Atherosclerotic heart disease of native coronary artery without angina pectoris; N18.9 Chronic kidney disease, unspecified; R06.09 Other forms of dyspnea; R07.89 Other chest pain; R55 Syncope and collapse; Z95.1 Presence of aortocoronary bypass graft | CPT/HCPCS: 93270 ==

== ENCOUNTER → 2023-01-09 08:52 | Outpatient (CLI) | payer MEDICARE, SELFPAY ==
--- NOTE | 2023-01-09 08:54 | MR_ITS ---
FINAL REPORT TECHNIQUE: Multiplanar and multisequence imaging of the cervical spine was obtained. CLINICAL HISTORY: NECK PAIN. fell and hit head 2 months ago and neck pain since. unable to fully turn head side to side. COMPARISON: None FINDINGS: There is mild anterolisthesis of C4 on C5, favor degenerative. Vertebral body height is preserved. Signal intensity within the substance of the spinal cord is normal. Bone marrow signal intensity is within normal limits. No acute paraspinal abnormality. C2/3: An annular bulge is noted, with bilateral facet osteoarthropathy. There is mild bilateral foraminal narrowing. C3/4: There is no focal disc herniation, central stenosis or neural foraminal narrowing. C4/5: An annular bulge is present with degenerative endplate change and bilateral facet osteoarthropathy. There is no significant canal or foraminal narrowing. C5/6: Bilateral facet osteoarthropathy is present, with no focal herniation. C6/7: Disc osteophyte complex is present along with mild bilateral neural foraminal narrowing.. C7/T1: There is no focal disc herniation, central stenosis or neural foraminal narrowing. IMPRESSION: No evidence of central canal stenosis. There is mild multilevel foraminal narrowing present. Anterolisthesis of C4 on C5. . Reviewed, Interpreted and Dictated by Mary Harvey MD Transcribed by Kiley Curiel Authenticated and [facility]
== END ==
PROVIDERS: PCP Family Medicine; Visit Provider Physician Assistant
DX: M54.2 Cervicalgia (principal)
CPT/HCPCS: 72141; 76376

== ENCOUNTER 2023-01-09 17:57 | Observation (INO) | payer MEDICARE, SELFPAY ==
[2023-01-09] VITALS (15 sets, daily range): BP systolic 95–183; BP diastolic 51–112; PULSE 76–103; RESP 16–18; TEMP 36.5–36.9; O2SAT 96–100; BMI 36.6
--- NOTE | 2023-01-09 | IR_ITS ---
APPROVED REPORT Patient Location: [facility] [employer] Machine Operator: SKYE Yap RT (R) PROCEDURES 1. Pocket formation for cardiac resynchronization therapy???pacemaker. 2. Placement of an atrial sensing and pacing coil into the right atrial appendage. 3. Placement of a ventricular sensing and pacing coil in the right ventricular apex. 4. Placement of sensing and pacing coil in the coronary sinus pacing the left ventricle 5. Placement of biventricular cardiac resynchronization therapy(MASH PREPARATORY OPERATOR-P) INDICATION 2:1 AV Block, 2nd Degree, Left ventricular ejection fraction of 45%, anticipated RV pacing >40% therefore cardiac resynchronization therapy is indicated in light of reduced LVEF, syncope Informed consent was obtained prior to the procedure. COMPLICATIONS None Estimated Blood Loss: Less than 10 ml TECHNIQUE 1% Lidocaine with epinephrine used to anesthetized the left anterior aspect of the chest. Scalpel was used to make the initial cutaneous incision while electrocautery was used to dissect down tinto the fascia. The fascia was lifted off the pectoralis muscle and digitally manipulated creating a pocket for the pacemaker. The patient was then placed in Trendelenburg position and the subclavian vein was accessed three times via the Selinger technique, there are three wires in the vein. A 9.5 Indonesian sheath and dilator was then placed over one of the wires while keeping the other two wires in place within the subclavian vein. The dilator was removed from the sheath. Using fluoroscopic guidance, contrast was used to visualize the coronary sinus, the left ventricular lead was placed into the coronary sinus. Electronic interrogation proved acceptable thresholds and voltage within the lead. Using 3-0 silk, the left ventricular lead was then secured into place and sheath peeled away. A 6 Indonesian sheath was placed under fluoroscopic guidance into the subclavian vein over one of the wires while keeping the other wire in place within the subclavian vein. The dilator was removed from the sheath. Using fluoroscopic guidance, the ventricular lead was placed into the right ventricular apex, screwed and secured into place. Electronic interrogation proved acceptable thresholds and voltage within the lead. Using 3-0 silk, the ventricular lead was then secured into place. Lead was secured to the facia using the 3-0 silk. Following this, the sheath was pealed away. An additional 6 Indonesian fresh sheath and dilator was placed over the existing wire. Using fluoroscopic guidance, the atrial lead was the placed into the right atrial appendage and screwed and secured in place. Electrical interrogation demonstrated acceptable thresholds and voltage number. The atrial lead was then secured into place using 3-0 silk. 1 gram of Ancef was used to flush the pocket. Following the pacemaker generator being secured to the fascia and in place, Monocryl was used to close the subcutaneous layers while brina were used to close the cutaneous layer. A pressure dressing was placed and the patient was transferred to the postop holding area in stable condition for postoperative care.. INTERROGATION Generator Model number: [id number] Generator Serial number: [id number] Atrial lead model number: 2088TC/ [id number] Atrial lead serial number: [id number] P-wave: 3.8MV Impedence: 550 OHMS Threshold: 0.75V@0.4MS Right Ventricular lead model number: [id number]/58 Right Ventricular lead serial number: [id number] R-wave: 4.9 MV Impedence: 650 OHMS Threshold: 0.75V@0.4MS Left Ventricular lead model number: 1458Q/86 Left Ventricular lead serial number: [id number] Impedence: 800 OHMS Threshold: 1.25V@1.0MS Pacing Parameters: Mode: DDDR Base/Max Track:60 ppm / 130 ppm No diaphragmatic stimula
--- NOTE | 2023-01-09 11:00 | CA_ITS ---
APPROVED REPORT EXAM: Comprehensive 2D, Doppler, and color-flow Echocardiogram Insole Doubler: Jaclyn Mcghee, RCS, RVS Ht: 5 ft 0 in Wt: 248lbs BSA: 2.05 BP: 105/60 mmHg Indications: near syncope, cad hx-CABG, HTN, HLD 2D Dimensions IVSd 1.01 cm LVEF (Visual) 43.00 % PWd 1.03 cm LA Volume 48.50 mL LVDd 4.55 cm LA Volume Index 23.20 mL/m2 (M/F) 16-34 LVDs 3.59 cm Aortic Root 3.11 cm Left Atrium 3.36 cm LVOT 1.91 cm (M/F) 1.5-2.5 M-Mode Dimensions RVDd 3.18 cm (0.9-2.6) LA Diam 4.11 cm (1.9-4.0) LVDd 4.96 cm (3.5-5.7) Ao Diam 3.61 cm (2.0-3.7) LVDs 3.60 cm (3.5-5.7) IVSd 1.07 cm (0.6-1.1) PWd 1.03 cm (0.6-1.1) EF (Teich) 53.10% EPSs 0.79 cm FS 27.40% EDV (Teich) 116.10 mL TAPSE 1.58 (<1.7) ESV (Teich) 54.40 mL LV Diastology E Decel Time 380.00 (160-240 msec) E/A Ratio 0.65 MED E' 6.00 (< 7 cm/sec) MED A' 11.80 cm/s E'/MED E' Ratio 11.00 (>14) LAT E' 7.80 (<10 cm/sec) LAT A' 13.20 cm/s E/LAT E' Ratio 8.46 (>14) Aortic Valve LVOT Max 85.00 (70-110 cm/s) LVOT VTI 17.15 cm AoV Peak Davonte. 92.00 (50-130 cm/s) AO Peak GR. 3.40 mmHg AO Mean GR. 1.70 (<5 mmHg) AO VTI 19.29 (18-25 cm) MEKA (VTI) 2.55 (2.5-4.5 cm2) Mitral Valve MV A Velocity 101.00 (40-130 cm/s) E/A Ratio 0.65 MV Decel. Time 380.00 (160-240 ms) Pulmonary Valve PV Peak Velocity 69.00 (50-150 cm/s) Tricuspid Valve TR P. Velocity 193.00 cm/s RAP Estimate 10.00 mmHg RVSP 25.00 mmHg Left Ventricle The left ventricle is normal size. The left ventricular systolic function is normal. The left ventricular ejection fraction is within the normal range. There is normal left ventricular wall thickness. There is normal LV segmental wall motion. The left ventricular diastolic function is normal. LVEF is 60-65%. Right Ventricle The right ventricle is normal size. The right ventricular systolic function is normal. Atria The left atrium size is normal. The right atrium size is normal. Aortic Valve The aortic valve is mildly thickened. There is no aortic valvular stenosis. No aortic regurgitation is present. Mitral Valve The mitral valve is mildly thickened. No evidence of mitral valve stenosis. There is no mitral valve regurgitation noted. Tricuspid Valve The tricuspid valve leaflets are thin and pliable. Mild tricuspid regurgitation. RVSP is normal. Pulmonic Valve The pulmonary valve is normal in structure. Trace pulmonic regurgitation. Great Vessels The aortic root is normal in size. The ascending aorta is not well visualized. IVC is normal in size and collapses >50% with inspiration. Pericardium There is no pericardial effusion. Other Information Study Quality: Fair Conclusion Normal biventricular systolic function. No significant valvular stenosis or regurgitation. Electronically signed by : Yael Burrows, 02/08/2023 20:40:59
--- NOTE | 2023-01-09 15:14 | EXP.CARD.PN ---
Subjective Subjective Date: 01/09/23 Time: 15:14 Principal diagnosis: Abnormal event monitor Interval history: Pt brought in today to discuss PPM with Dr. Jacob MD. Dr. James assessed pt and reviewed gambling monitor which showed Second degree AV block Type II he needs a PPM. He recently passed out while in the ER with HR in the 40's per pt. Has had dizziness prior to syncope. He has fall frequently, he is off balance most of the time, he is in wheelchair today and uses a walker at home. Will get him set up for a Dual Chamber PPM today, will have him get an echo prior to placement. Risks, benefits and procedure explained to the patient and family and patient agrees to proceed. RTC post op. Exam Data for Last 24 hours Vital signs and Labs for Last 24 Hours: Temp Pulse Resp BP Pulse Ox O2 Del Method 98.4 F 76 18 183/72 H 99 Room Air 01/09/23 11:36 01/09/23 11:40 01/09/23 11:36 01/09/23 11:36 01/09/23 11:36 01/09/23 11:36 I & O for Last 24 hours: Intake & Output 01/07/23 01/08/23 01/09/23 01/10/23 11:59 11:59 11:59 11:59 Weight 248 lb Constitutional Constitutional: no acute distress *Routine Respiratory Exam Respiratory: Present CTA bilaterally *Routine Cardiovascular Exam Cardiovascular: Present RRR *Routine Extremities Exam Extremities: Absent edema Progress Note: A&P Assessment and plan (1) Second degree AV block, Mobitz type II: Status: Acute (2) Syncope: Status: Acute (3) CAD (coronary artery disease): Status: Chronic Assessment and Plan Assessment and Plan for All Diagnoses:: Symptomatic second degree AV block, type II Plan Echo today Proceed with Pacer insertion today based on echo results Follow up next week
--- NOTE | 2023-01-09 17:29 | XR_ITS ---
PROCEDURE INFORMATION: Exam: XR Chest Exam date and time: 01/09/23 06:00 PM Age: 87 years old Clinical indication: Device placement; Cardiac pacemaker placement or adjustment; Additional info: Post pacemaker TECHNIQUE: Imaging protocol: Radiologic exam of the chest. Views: 1 view. COMPARISON: CR XR CHEST PORTABLE 01/05/23 02:13 AM FINDINGS: Tubes, catheters and devices: Left subclavian pacemaker leads overlie the right atrium and right ventricle with an epicardial lead. Lungs: Unremarkable. No consolidation. Pleural spaces: Unremarkable. No pleural effusion. No pneumothorax. Heart/Mediastinum: CABG. Bones/joints: Unremarkable. IMPRESSION: Left subclavian pacemaker leads overlie the right atrium and right ventricle with an epicardial lead.
--- NOTE | 2023-01-09 18:11 | PC.NURSE ---
arrived to floor by stretcher from laboratory mechanic helper
--- NOTE | 2023-01-09 19:34 | EXP.HP ---
History of Present Illness *Admission Date: 01/09/23 *Reason for visit:: S/P PPM *History of present illness: 87 year old male presented to the Cardiology clinic today for follow up of 2 week event monitor for bradycardia and near syncope. PMHX of CAD, HLD, HTN, and CKD.The patient has hx of CABG in 2000. Dr. James reviewed director of cardiac rehabilitation and revealed second degree AV block type 2. He was taken to the [facility] and had a Bi Ventricular PPM placed. Dr. James spoke with Dr. Jaimes for medical admission s/p PPM placement for monitoring of kidney function. The patient's last creatinine was 2.10 on 01/05/23. The patient arrived to the medical floor s/p PPM placement hemodynamically stable and denying any pain or nausea. He is making urine and will receive 75 mL/hr of NS overnight. His current BMP is pending. Will recheck BMP in the morning. [facility] Disclaimer: The information contained in this section may have been updated after the patient was seen, as this information can be updated by other users. Medical History Atypical chest pain Social History Smoking Status: Unknown if ever smoked second hand exposure: Yes alcohol intake: never substance use type: denies use current occupational status: retired Travel in the last 8 weeks: None household members: none housing: house current occupational exposures/hazards: No Review of Systems Review of Systems Review of systems:: pertinent systems reviewed and negative unless documented below Constitutional Constitutional: Reports fatigue Eyes Eyes: Reports system reviewed and no additional complaints, except as documented ENT Ears, Nose, Mouth, and Throat: Reports system reviewed and no additional complaints, except as documented and Reports neck pain (chronic ) *Cardiovascular Cardiovascular: Denies chest pain *Respiratory Respiratory: Reports system reviewed and no additional complaints, except as documented *Gastrointestinal Gastrointestinal: Reports system reviewed and no additional complaints, except as documented *Genitourinary Genitourinary: Reports system reviewed and no additional complaints, except as documented *Musculoskeletal Musculoskeletal: Reports neck pain (chronic ) Integumentary/Breasts Skin/Breast: Reports system reviewed and no additional complaints, except as documented *Neurologic Neurologic: Reports system reviewed and no additional complaints, except as documented Psychiatric Psychiatric: Reports system reviewed and no additional complaints, except as documented Endocrine Endocrine: Reports fatigue Meds Home Medications and Allergies Home Medications Medication Instructions Recorded Confirmed Type coenzyme Q10 100 mg capsule (Co 100 mg PO DAILY Supplement 08/10/18 01/06/23 History Q-10) glucosamine-chondroitin 250 mg-200 1 tab PO BID Supplement 08/10/18 01/06/23 History mg tablet (Osteo Bi-Flex) vitamin B complex (B 1 tab PO DAILY Supplement 08/10/18 01/06/23 History Complex-Vitamin B12 tablet) aspirin 81 mg chewable tablet 81 mg PO DAILY HEART HEALTH 10/20/18 01/06/23 History multivitamin 1 tab PO DAILY Supplement 10/20/18 01/06/23 History ramipril 5 mg capsule 5 mg PO DAILY Hypertension 10/20/18 01/06/23 History rosuvastatin 10 mg tablet 10 mg PO ONCE Cholesterol 10/20/18 01/06/23 History lactobacillus combination no.9 4 4,000 mmu cells PO DAILY probotic 03/02/19 01/06/23 History billion cell capsule (Adult 50 Plus Probiotic) metoprolol tartrate 50 mg tablet 50 mg PO DAILY Hypertension 90 03/02/19 01/06/23 History days #90 tabs turmeric 400 mg capsule 400 mg PO BID Supplement 01/05/23 01/06/23 History furosemide 40 mg tablet 20 mg PO DAILY swelling 01/06/23 01/06/23 History New Prescriptions to Start Prescriptions: Allergies Allergy/AdvReac Type Severity Reaction Status Date / Time clinda
[2023-01-09 20:08] LABS: Chloride 104 mmol/L (98-107)
[2023-01-09 20:09] LABS: Potassium 3.8 mmoL/L (3.5-5.1); Sodium 139 mmol/L (136-145)
[2023-01-09 20:11] LABS: Alanine Aminotransferase 55 U/L (12-78); Albumin Level 4.2 g/dl (3.5-5.0); Albumin/Globulin Ratio 1.2 (1.1-1.8); Alkaline Phosphatase 268 U/L (38-126); Anion Gap 12.8 mEq/L (5-15); Aspartate Amino Transferase 51 U/L (17-59); Basophils % 0.5 % (0.1-2.0); Bilirubin,Total 0.5 mg/dl (0.2-1.3); Blood Urea Nitrogen 33 mg/dl (9-20); Calcium 9.5 mg/dl (8.4-10.2); Carbon Dioxide 26 mmol/L (22.0-30.0); Cholesterol 117 mg/dl (140-200); Creatinine Clearance Estimated 45 mL/min (50-200); Eosinophils # 0.3 K/mm3 (0.0-0.4); Eosinophils % 3.2 % (0.1-12.0); Estimated Glomerular Filt Rate 36 ml/min (>60); GFR (African American) 43 ML/MIN (>60); Globulin 3.5 g/dL (1.3-3.2); Glucose 96 mg/dl (74-100); Hematocrit 43.7 % (42.0-52.0); Hemoglobin 13.7 g/dL (14.1-18.0); Lymphocytes # 1.3 K/mm3 (0.7-4.5); Mean Corpuscular HGB Conc 31.4 g/dL (31.8-35.4); Mean Corpuscular Hemoglobin 31.5 pg (27.0-31.2); Mean Corpuscular Volume 100.4 fl (80-94); Mean Platelet Volume 8.3 fl (7.4-10.4); Monocytes # 0.6 K/mm3 (0.1-1.0); Neutrophils % 73.3 % (37.0-80.0); Platelet Count 228 K/mm3 (142-424); Red Blood Count 4.35 M/mm3 (4.60-6.20); Red Cell Distribution Width 13.4 % (11.5-17.5); Total Protein,Serum 7.7 g/dl (6.3-8.2); Triglycerides 140 mg/dl (30-150); VLDL Cholesterol 28 mg/dL (0-40); White Blood Count 8.2 K/mm3 (4.8-10.8)
[2023-01-09 20:12] LABS: Chol/HDL Ratio 2.5 (1-3.5); HDL Cholesterol 46 mg/dl (40-60); Magnesium 2.2 mg/dl (1.6-2.3)
[2023-01-09 20:23] LABS: Direct LDL Cholesterol 37.83 mg/dL (100-129)
[2023-01-10] VITALS: BP 144/81; PULSE 74; PULSE 80; RESP 18; TEMP 37; O2SAT 96
[2023-01-10 04:00] VITALS: BP 148/87; PULSE 80; PULSE 81; RESP 16; TEMP 36.7; O2SAT 96; BMI 37.1
--- NOTE | 2023-01-10 04:18 | PC.NURSE ---
pt here for observation post pacer insertion. A&OX4. RA. assist x1. refused shower. 20 LFA NS at 75. daughter at bedside first half of the night, stated he had a fall 2 months ago, BA on. educated the pt he has the right to refuse and make his own choices during lab draw r/t statements made per daughter - daughter requested Adriana from ER for lab draw because he has PER HER veins that roll he has been stuck to much can we pull labs from IV . dialysis patient care technician was able to retrieve the labs on first stick, with no other complaints. the last half of the night, the pt has been alone and slept well. ambulated to the toilet. bed locked/lowest position, call light within reach.
[2023-01-10 07:32] VITALS: BP 110/61; PULSE 77; RESP 18; TEMP 36.8; O2SAT 95
[2023-01-10 08:00] VITALS: PULSE 80
--- NOTE | 2023-01-10 10:30 | EXP.DC.SUM ---
General Admission date:: 01/09/23 Discharge date: 01/10/23 HPI HPI HPI: 87 year old male presented to the Cardiology clinic on 01/09/2023 for follow up of 2 week event monitor for bradycardia and near syncope. PMHX of CAD, HLD, HTN, and CKD.The patient has hx of CABG in 2000. Dr. James reviewed traffic monitor specialist and revealed second degree AV block type 2. He was taken to the [facility] and had a Bi Ventricular PPM placed. Patient was admitted post PPM placement for monitoring and to monitor his kidney function given his chronic kidney disease stage IIIb Hospital Course Hospital Course Hospital Course: 87-year-old male was recently diagnosed with second-degree AV block type II status post PPM placement on 01/09/2023. Admitted for overnight monitoring and monitoring for any new renal insufficiency from the contrast he received for PPM placement. Patient has history of chronic kidney disease. His BMP today morning did not show any worsening of creatinine or BUN. Creatinine is 1.8 on discharge. Last known creatinine from 05 January 2023 was 2. He is otherwise asymptomatic. His heart rate in the 70 to low 80s. Discussed with cardiology regarding discharge plan and cardiology recommended switching metoprolol tartrate 50 mg daily to metoprolol succinate 50 mg daily. Patient will follow-up with cardiology on 01/16/2023. Exam Data for Last 24 hours Vital signs and Labs for Last 24 Hours: Temp Pulse Resp BP Pulse Ox O2 Del Method 98.2 F 77 18 110/61 95 Room Air 01/10/23 07:32 01/10/23 07:32 01/10/23 07:32 01/10/23 07:32 01/10/23 07:32 01/10/23 07:32 Laboratory Results - last 24 hr 01/09/23 17:55: WBC 8.2, RBC 4.35 L, Hgb 13.7 L, Hct 43.7, MCV 100.4 H, MCH 31.5 H, MCHC 31.4 L, RDW 13.4, Plt Count 228, MPV 8.3, Neut % (Auto) 73.3, Lymph % (Auto) 16.0, [place] % (Auto) 7.0, Eos % (Auto) 3.2, Baso % (Auto) 0.5, Neut # (Auto) 6.0, Lymph # (Auto) 1.3, [place] # (Auto) 0.6, Eos # (Auto) 0.3, Baso # (Auto) 0.0, Sodium 139, Potassium 3.8, Chloride 104, Carbon Dioxide 26, Anion Gap 12.8, BUN 33 H, Creatinine 1.80 H, Estimated Creat Clear 45, Estimated GFR 36 L, Est GFR ( Amer) 43 L, Glucose 96, Calcium 9.5, Magnesium 2.2, Total Bilirubin 0.5, AST 51, ALT 55, Alkaline Phosphatase 268 H, Total Protein 7.7, Albumin 4.2, Globulin 3.5 H, Albumin/Globulin Ratio 1.2, Triglycerides 140, Cholesterol 117 L, LDL Cholesterol Direct 37.83 L, VLDL Cholesterol 28, HDL Cholesterol 46, Cholesterol/HDL Ratio 2.5 I & O for Last 24 hours: Intake & Output 01/07/23 01/08/23 01/09/23 01/10/23 23:59 23:59 23:59 23:59 Intake Total 1064 / 1064 Output Total 375 / 375 0 / 0 Balance -375 / -86 1064 / 1064 Weight 112.491 kg 113.716 kg Results Data Completed and Pending Labs on day of discharge: Labs from last 24 hours 01/09/23 17:55 WBC 8.2 RBC 4.35 L Hgb 13.7 L Hct 43.7 MCV 100.4 H MCH 31.5 H MCHC 31.4 L RDW 13.4 Plt Count 228 MPV 8.3 Neut % (Auto) 73.3 Lymph % (Auto) 16.0 [place] % (Auto) 7.0 Eos % (Auto) 3.2 Baso % (Auto) 0.5 Neut # (Auto) 6.0 Lymph # (Auto) 1.3 [place] # (Auto) 0.6 Eos # (Auto) 0.3 Baso # (Auto) 0.0 Sodium 139 Potassium 3.8 Chloride 104 Carbon Dioxide 26 Anion Gap 12.8 BUN 33 H Creatinine 1.80 H Estimated Creat Clear 45 Estimated GFR 36 L Est GFR ( Amer) 43 L Glucose 96 Calcium 9.5 Magnesium 2.2 Total Bilirubin 0.5 AST 51 ALT 55 Alkaline Phosphatase 268 H Total Protein 7.7 Albumin 4.2 Globulin 3.5 H Albumin/Globulin Ratio 1.2 Triglycerides 140 Cholesterol 117 L LDL Cholesterol Direct 37.83 L VLDL Cholesterol 28 HDL Cholesterol 46 Cholesterol/HDL Ratio 2.5 DS: Diagnosis Discharge Diagnosis (1) S/P cardiac pacemaker procedure: Status: Acute Code(s): Z95.0 - Presence of cardiac pacemaker (2) Second degree AV block, Mobitz type II: Status: Acute Code(s): I44.1 - Atrioventricular block, second degree (
--- NOTE | 2023-01-12 13:57 | CARE MANAGER ---
Spoke with patient for post-discharge phone interview, no issues noted.
== END 2023-01-10 11:45 | disposition home or self-care (01) ==
LOC: 2ND 17:58
PROVIDERS: Internal Medicine; Nurse Practitioner Critical Care Medicine; Admitting Provider Internal Medicine; PCP Family Medicine; Visit Provider Internal Medicine
DX: I44.1 Atrioventricular block, second degree; Z45.02 Encounter for adjustment and management of automatic implantable cardiac defibrillator; I25.10 Atherosclerotic heart disease of native coronary artery without angina pectoris; E78.5 Hyperlipidemia, unspecified; R07.89 Other chest pain; R55 Syncope and collapse; Z95.1 Presence of aortocoronary bypass graft; E78.2 Mixed hyperlipidemia; Z79.899 Other long term (current) drug therapy; N18.30 Chronic kidney disease, stage 3 unspecified; I12.9 Hypertensive chronic kidney disease with stage 1 through stage 4 chronic kidney disease, or unspecified chronic kidney disease
CPT/HCPCS: G0378; 33208; 33225; 36415; 71045; 72141; 76376; 80053; 80061; 83735; 85025; 93306; C1769; C1898; C1900; C2621; Q9967

== ENCOUNTER → 2023-01-28 08:43 | Outpatient (CLI) | payer MEDICARE, SELFPAY ==
--- NOTE | 2023-01-28 08:46 | CA_ITS ---
FINAL REPORT TECHNIQUE: Color Doppler, duplex Doppler and liang scale sonography of the bilateral neck arterial vasculature was performed. Velocities were measured in the carotid arteries. Stenosis evaluation based on the validated velocity criteria. CLINICAL HISTORY: dizziness/near syncope FINDINGS: The peak systolic velocity of the right common carotid artery is 117 cm/s. The peak systolic velocity of the right internal carotid artery is 86 cm/s and end diastolic velocity 18 cm/s. The ICA/CCA ratio is 0.74. A small amount of plaque is present. The right external carotid artery is patent. The right vertebral artery is patent with antegrade flow. The peak systolic velocity of the left common carotid artery is 95 cm/s. The peak systolic velocity of the left internal carotid artery is 116 cm/s and end diastolic velocity 29 cm/s. The ICA/CCA ratio is 1.2. A small amount of plaque is present. The left external carotid artery is patent.The left vertebral artery is patent with antegrade flow. IMPRESSION: Less than 50% bilateral carotid stenoses. Bilateral patent vertebral arteries with antegrade flow. If indicated, CTA or MRA could further evaluate. Reviewed, Interpreted and Dictated by Daniel Aguillon III, MD Transcribed by Laurence Mckeon Authenticated and [facility]
== END ==
PROVIDERS: PCP Family Medicine; Visit Provider Internal Medicine
DX: E78.5 Hyperlipidemia, unspecified (principal); R42 Dizziness and giddiness; R55 Syncope and collapse; Z95.0 Presence of cardiac pacemaker; Z95.1 Presence of aortocoronary bypass graft
CPT/HCPCS: 93880